=== PATIENT | female | born 1970 | race American Indian/Alaskan Native ===

== ENCOUNTER 2018-11-25 13:55 | Inpatient (IN) | payer MEDICAID ==
[2018-11-25 13:55] VITALS: BMI 21.7
[2018-11-25 14:52] LABS: BASO # 0.1 K/uL (0.0-0.2); BASO % 1.2 % (0.0-2.0); EOS % 0.4 % (0.0-4.0); LYMPH # 1.7 K/uL (1.0-4.3); LYMPH % 19.1 % (20.0-40.0); MEAN CELL VOLUME 77.2 fL (81.0-99.0); MEAN CORPUSCULAR HEMOGLOBIN 24.1 pg (27.0-31.0); MEAN CORPUSCULAR HGB CONC 31.3 g/dL (33.0-37.0); MEAN PLATELET VOLUME 9.1 fL (7.2-11.7); MONO # 0.6 K/uL (0.0-0.8); MONO % 6.4 % (0.0-10.0); NEUT # 6.4 K/uL (1.8-7.0); NEUT % 72.9 % (50.0-75.0); RBC 4.96 Mil/uL (3.80-5.20); RED CELL DISTRIBUTION WIDTH 17.7 % (11.5-14.5); WHITE BLOOD COUNT 8.8 K/uL (4.8-10.8)
--- NOTE | 2018-11-25 15:01 | C.PDOC ---
History Of Present Illness 48 y/o female presents to the ER complaining of large ulcer to right lower leg which has been present for the past 3 weeks. Patient states that she has history of skin lesions over the past 2-3 years. Patient reports that the lesions start as nodules which develop into abscesses eventually becoming ulcers. She notes that she has been in subacute rehab and hospitalized for same complaint. She was also started on IV abx for same complaint. She notes that the current ulcer began as nodules developing to abscesses eventually forming ulcers. She was evaluated by in his office today and he referred her to the ER for admission. Denies having fever and chills. Time Seen by Provider: 11/25/18 14:02 Chief Complaint (Nursing): Lower Extremity Problem/Injury History Per: Patient History/Exam Limitations: no limitations Onset/Duration Of Symptoms: Days Current Symptoms Are (Timing): Still Present Severity: Moderate Past Medical History Reviewed: Historical Data, Nursing Documentation, Vital Signs Vital Signs: Last Vital Signs Temp 98.6 F 11/25/18 14:25 Pulse 84 11/25/18 14:25 Resp 18 11/25/18 14:25 BP 113/75 11/25/18 14:25 Pulse Ox 100 11/25/18 14:25 - Medical History PMH: Diabetes Denies: HTN (States she doesnt have HTN), Chronic Kidney Disease Other Surgeries: Hx of surgeries - [facility] Procedures DRAINAGE OF L LOW LEG SUBCU/FASCIA, OPEN APPROACH, DIAGN (07/16/17) DRAINAGE OF R LOW LEG SUBCU/FASCIA, OPEN APPROACH, DIAGN (07/16/17) EXCISION OF L LOW LEG SUBCU/FASCIA, OPEN APPROACH, DIAGN (07/16/17) EXCISION OF R LOW LEG SUBCU/FASCIA, OPEN APPROACH, DIAGN (07/16/17) INTRODUCTION OF SERUM/TOX/VACCINE INTO MUSCLE, PERC APPROACH (07/16/17) Family History: States: No Known Family Hx - Social History Hx Tobacco Use: No Hx Alcohol Use: No Hx Substance Use: No - Immunization History Hx Influenza Vaccination: No Hx Pneumococcal Vaccination: No Review Of Systems Except As Marked, All Systems Reviewed And Found Negative. Constitutional: Negative for: Fever, Chills Skin: Positive for: Other (right leg ulceration) Physical Exam - Physical Exam Appears: Non-toxic, No Acute Distress Skin: Warm, Dry, Other (right lower le-10 cm ulcerative lesion with raised edges and thick exudates bleeding, right anterior shoulder: 2 cm nodule) Head: Atraumatic, Normacephalic Eye(s): bilateral: Normal Inspection Nose: Normal Oral Mucosa: Moist Neck: Supple Chest: Symmetrical Cardiovascular: Rhythm Regular Respiratory: Normal Breath Sounds, No Rales, No Rhonchi Gastrointestinal/Abdominal: Normal Exam, Soft, No Tenderness, No Guarding, No Rebound Extremity: Normal ROM, Tenderness (right lower leg: tenderness over lesion) Neurological/Psych: Oriented x3, Normal Speech ED Course And Treatment - Laboratory Results Result Diagrams: 11/25/18 14:48 11/25/18 15:17 Lab Interpretation: No Acute Changes ECG: Interpreted By Me ECG Rhythm: Sinus Rhythm ECG Interpretation: Normal O2 Sat by Pulse Oximetry: 100 (RA) Pulse Ox Interpretation: Normal - Radiology CXR: Interpreted by Me CXR Interpretation: Yes: No Acute Disease Reevaluation Time: 15:44 Reassessment Condition: Unchanged - Physician Consult Information Outcome Of Conversation: Patient was seen in ED by podiatry in consult. Discussed with Dr Horn. Medical Decision Making Medical Decision Making: Plan: --Labs --Blood Culture Disposition - Disposition Disposition: HOSPITALIZED Disposition Time: 15:45 Condition: STABLE - POA Present On Arrival: None - Clinical Impression Clinical Impression: Diabetes mellitus type 2 in nonobese, Abscess of right lower extremity excluding foot - Scribe Statement The provider has reviewed the documentation as recorded by the Yves Novak Provider Attestation: All medical record entries made by the Yves were at my direction and personally dictated by me. I have reviewed the chart and agree that the record accurately reflects my personal performance of the history, physical exam, medical decision making, and the department course for this patient. I have also personally directed, reviewed, and agree with the discharge instructions and disposition.
--- NOTE | 2018-11-25 15:18 | CP.PCM.CON ---
History of Present Illness - History of Present Illness History of Present Illness: Podiatry Consult Note - Dr. Orta 48 year old female patient PMHx DM seen in ED for right leg wound. Patient states she first developed the wound 3 weeks ago - relates that it first started out as a blister/abscess, ruptures, and develops into an extremely painful, draining, nonhealing wound. Patient states she has a history of developing similar wounds with the same progression of abscess, rupture, to becoming a painful non-healing wound. Of note, patient was admitted at [facility] July 2017 for a similar reason. Patient states she has been using Santyl from July for self care however wound continued to worsen which led to ED presentation. At present, patient reports 10/10 pain on VAS scale. Denies n/v/f/d/c/sob/reza/cp. No other complaints. Review of Systems - Review of Systems All systems: reviewed and no additional remarkable complaints except (as per HPI) Past Patient History - Infectious Disease Hx of Infectious Diseases: None - Past Medical History & Family History Past Medical History?: Yes - Past Social History Smoking Status: Never Smoked - CARDIAC Hx Hypertension: No (States she doesnt have HTN) - PULMONARY Hx Respiratory Disorders: No - NEUROLOGICAL Hx Neurological Disorder: No - HEENT Hx HEENT Problems: Yes Other/Comment: Eye surgery [place] - RENAL Hx Chronic Kidney Disease: No - ENDOCRINE/METABOLIC Hx Endocrine Disorders: Yes Hx Diabetes Mellitus Type 2: Yes - HEMATOLOGICAL/ONCOLOGICAL Hx Blood Disorders: No - INTEGUMENTARY Hx Dermatological Problems: Yes Other/Comment: Chronic wounds to upper and lower extremities - MUSCULOSKELETAL/RHEUMATOLOGICAL Hx Musculoskeletal Disorders: No Hx Falls: No - GASTROINTESTINAL Hx Gastrointestinal Disorders: No - GENITOURINARY/GYNECOLOGICAL Hx Genitourinary Disorders: No - PSYCHIATRIC Hx Substance Use: No - SURGICAL HISTORY Hx Surgeries: Yes Other/Comment: Eye surgery [place] - ANESTHESIA Hx Anesthesia: Yes Hx Anesthesia Reactions: No Hx Malignant Hyperthermia: No Meds Allergies/Adverse Reactions: Allergies Allergy/AdvReac Type Severity Reaction Status Date / Time No Known Allergies Allergy Verified 07/16/17 14:18 Physical Exam - Constitutional Appears: Non-toxic, No Acute Distress - Extremities Exam Additional comments: RLE focused VASC: DP and PT pulses weakly palpable 1/4. CFT <3 seconds to all digits. Temperature gradient warm to warm b/l. No increase in warmth noted periwound. NEURO: Gross sensation intact. DERM: Wound measuring approximately 7 x 15 x 0.1 cm noted to right lower leg just proximal to ankle joint encompassing 75% of leg circumference. Wound is 90% granular 10% fibrotic with rolled edges periwound; serosanguinous drainage present; no purulence; no fluctuance; no malodor. ORTHO: Severe pain on palpation to right leg wound. - Neurological Exam Neurological exam: Alert, Oriented x3 - Psychiatric Exam Psychiatric exam: Normal Affect, Normal Mood Results - Vital Signs Recent Vital Signs: Last Vital Signs Temp 98.6 F 11/25/18 14:25 Pulse 84 11/25/18 14:25 Resp 18 11/25/18 14:25 BP 113/75 11/25/18 14:25 Pulse Ox 100 11/25/18 15:08 - Labs Result Diagrams: 11/25/18 14:48 11/25/18 15:17 Labs: Laboratory Results - last 24 hr 11/25/18 11/25/18 14:18 14:48 WBC 8.8 RBC 4.96 Hgb 12.0 Hct 38.3 MCV 77.2 L MCH 24.1 L MCHC 31.3 L RDW 17.7 H Plt Count 285 MPV 9.1 Neut % (Auto) 72.9 Lymph % (Auto) 19.1 L [place] % (Auto) 6.4 Eos % (Auto) 0.4 Baso % (Auto) 1.2 Neut # (Auto) 6.4 Lymph # (Auto) 1.7 [place] # (Auto) 0.6 Eos # (Auto) 0.0 Baso # (Auto) 0.1 POC Glucose (mg/dL) 184 H Assessment & Plan - Assessment and Plan (Free Text) Assessment: 48 year old female PMHx DM with right leg wound Plan: Patient seen and evaluated at bedside Discussed with attending, Dr. Orta Afebrile, WBC WNL 8.8 R leg wound culture obtained ID consulted -Vancomyvin IV, Zosyn IV started Local wound care provided: telfa, DSD WBAT bilateral LE Continue pain mgmt Podiatry will continue to follow
[2018-11-25 15:36] LABS: ALB/GLOB RATIO 1.2 (1.0-2.1); ALBUMIN 4.4 g/dL (3.5-5.0); ALT/SGPT 14 U/L (9-52); AST/SGOT 24 U/L (14-36); BLOOD UREA NITROGEN 20 mg/dL (7-17); CALCIUM 9.9 mg/dl (8.6-10.4); GFR NON-AFRICAN AMERICAN > 60
[2018-11-25] MEDS ORDERED: Vancomycin 1 GM 1 GM/250 ML BAG IV STA (15:42)
[2018-11-25] MEDS ORDERED: Piperacillin/Tazobact 3.375 gm 100 ML IV STA (15:43)
[2018-11-25] MEDS ORDERED: Piperacillin/Tazobact 3.375 gm 100 ML IVPB ONE (16:03)
--- NOTE | 2018-11-25 16:41 | RAD ---
HISTORY: skin lesions/admission COMPARISON: None available TECHNIQUE: Chest PA and lateral FINDINGS: LUNGS: No focal consolidation. Please note that chest x-ray has limited sensitivity for the detection of pulmonary masses. PLEURA: No significant pleural effusion identified. No definite pneumothorax . CARDIOVASCULAR: Heart size appears within normal limits. Atherosclerotic calcification of the aortic knob. OSSEOUS STRUCTURES: No acute osseous abnormality identified. VISUALIZED UPPER ABDOMEN: Unremarkable. OTHER FINDINGS: None. IMPRESSION: No focal consolidation.
[2018-11-25] MEDS ORDERED: Vancomycin 1 GM 1 GM/250 ML BAG IVPB ONE (17:02)
--- NOTE | 2018-11-25 20:15 | CP.PCM.PN ---
Subjective - Date & Time of Evaluation Date of Evaluation: 11/25/18 Time of Evaluation: 20:00 - Subjective Subjective: H&P dictated #[id number] Objective - Vital Signs/Intake and Output Vital Signs (last 24 hours): Temp Pulse Resp BP Pulse Ox 98 F 80 20 115/75 98 11/25/18 17:46 11/25/18 17:46 11/25/18 17:46 11/25/18 17:46 11/25/18 17:46 - Medications Medications: Current Medications Ibuprofen (Motrin Tab) 400 mg PO Q8 PRN PRN Reason: Pain, moderate (4-7) Insulin Human Regular (Novolin R) 0 unit SC ACHS FATOUMATA; Protocol Metformin HCl (Glucophage) 1,000 mg PO BID FATOUMATA Pantoprazole Sodium (Protonix Ec Tab) 40 mg PO DAILY FATOUMATA Prednisolone Acetate (Pred Forte 1% Opht Susp) 1 ml OS TID FATOUMATA Sitagliptin Phosphate (Januvia) 100 mg PO DAILY FATOUMATA - Labs Labs: 11/25/18 14:48 11/25/18 15:17
--- NOTE | 2018-11-25 21:01 | CP.PCM.CON ---
History of Present Illness - History of Present Illness History of Present Illness: 48 year old female patient PMHx DM and multiple admissions for skin infections/ wounds is admitted for nonhealing right leg wound. Patient states she first developed the wound 3 weeks ago which first started out as a blister/abscess, ruptures, and develops into an extremely painful, draining, nonhealing wound. Patient states she has been using Santyl from July for self care however wound continued to worsen which led to ED presentation. Becaause of possible infectious etiology, she was referred for ID evaluation of same Patientm has Hx + Quantiferon gold as well as + OTILIA in the past deniesm fever / chills bites, pets or foreign travel Differential includes infectious ( bacteria, AFB, Fungus etc) and non infectious etiologies including malignancies-- will need Bx as well as cultures may have pyoderma must also r/o connective tissue diseaseds Review of Systems - Review of Systems All systems: reviewed and no additional remarkable complaints except Past Patient History - Infectious Disease Hx of Infectious Diseases: None - Past Medical History & Family History Past Medical History?: Yes - Past Social History Smoking Status: Never Smoked - CARDIAC Hx Hypertension: No (States she doesnt have HTN) - PULMONARY Hx Respiratory Disorders: No - NEUROLOGICAL Hx Neurological Disorder: No - HEENT Hx HEENT Problems: Yes Other/Comment: Eye surgery post [place] - RENAL Hx Chronic Kidney Disease: No - ENDOCRINE/METABOLIC Hx Endocrine Disorders: Yes Hx Diabetes Mellitus Type 2: Yes - HEMATOLOGICAL/ONCOLOGICAL Hx Blood Disorders: No - INTEGUMENTARY Hx Dermatological Problems: Yes Other/Comment: Chronic wounds to upper and lower extremities - MUSCULOSKELETAL/RHEUMATOLOGICAL Hx Musculoskeletal Disorders: No Hx Falls: No - GASTROINTESTINAL Hx Gastrointestinal Disorders: No - GENITOURINARY/GYNECOLOGICAL Hx Genitourinary Disorders: No - PSYCHIATRIC Hx Substance Use: No - SURGICAL HISTORY Hx Surgeries: Yes Other/Comment: Eye surgery [place] - ANESTHESIA Hx Anesthesia: Yes Hx Anesthesia Reactions: No Hx Malignant Hyperthermia: No Meds Allergies/Adverse Reactions: Allergies Allergy/AdvReac Type Severity Reaction Status Date / Time No Known Allergies Allergy Verified 07/16/17 14:18 - Medications Medications: Current Medications Vancomycin HCl 1 gm/ Sodium (Chloride) 250 mls @ 166.7 mls/hr IVPB Q12 FATOUMATA; Protocol Piperacillin Sod/Tazobactam Sod (Zosyn 3.375 In Ns 100ml) 100 mls @ 200 mls/hr IVPB Q8 FATOUMATA; Protocol Ibuprofen (Motrin Tab) 400 mg PO Q8 PRN PRN Reason: Pain, moderate (4-7) Influenza Virus Vaccine (Flucelvax Quad 6662-3237 Syr) 60 mcg IM .ONCE ONE Stop: 11/28/18 10:01 Insulin Human Regular (Novolin R) 0 unit SC ACHS FATOUMATA; Protocol Metformin HCl (Glucophage) 1,000 mg PO BID FATOUMATA Pantoprazole Sodium (Protonix Ec Tab) 40 mg PO DAILY FATOUMATA Pneumococcal Polyvalent Vaccine (Pneumovax 23 Vaccine) 0.5 ml IM .ONCE ONE Stop: 11/28/18 10:01 Prednisolone Acetate (Pred Forte 1% Opht Susp) 1 ml OS TID FATOUMATA Sitagliptin Phosphate (Januvia) 100 mg PO DAILY FATOUMATA Physical Exam - Constitutional Appears: Chronically Ill - Head Exam Head Exam: ATRAUMATIC, NORMOCEPHALIC - Eye Exam Eye Exam: absent: Scleral icterus - ENT Exam ENT Exam: Mucous Membranes Dry, Normal External Ear Exam - Neck Exam Neck exam: Negative for: Lymphadenopathy - Respiratory Exam Respiratory Exam: Decreased Breath Sounds - Cardiovascular Exam Cardiovascular Exam: REGULAR RHYTHM, +S1, +S2 - GI/Abdominal Exam GI & Abdominal Exam: Diminished Bowel Sounds - Rectal Exam Rectal Exam: Deferred - Exam Exam: NORMAL INSPECTION - Extremities Exam Extremities exam: Positive for: tenderness, pedal pulses present. Negative for: calf tenderness, pedal edema Additional comments: wound RLE + - Back Exam Back exam: absent: CVA tenderness (L), CVA tenderness (R) - Neurological Exam Neurological exam: Alert, CN II-XII Intact, Oriented x3, Reflexes Normal - Psychiatric Exam Psychiatric exam: Normal Mood Results - Vital Signs Recent Vital Signs: Last Vital Signs Temp 98 F 11/25/18 17:46 Pulse 80 11/25/18 17:46 Resp 20 11/25/18 17:46 BP 115/75 11/25/18 17:46 Pulse Ox 98 11/25/18 17:46 - Labs Result Diagrams: 11/26/18 07:08 11/26/18 07:08 Labs: Laboratory Results - last 24 hr 11/25/18 11/25/18 11/25/18 14:18 14:48 15:17 WBC 8.8 RBC 4.96 Hgb 12.0 Hct 38.3 MCV 77.2 L MCH 24.1 L MCHC 31.3 L RDW 17.7 H Plt Count 285 MPV 9.1 Neut % (Auto) 72.9 Lymph % (Auto) 19.1 L [place] % (Auto) 6.4 Eos % (Auto) 0.4 Baso % (Auto) 1.2 Neut # (Auto) 6.4 Lymph # (Auto) 1.7 [place] # (Auto) 0.6 Eos # (Auto) 0.0 Baso # (Auto) 0.1 Sodium 137 Potassium 3.8 Chloride 105 Carbon Dioxide 22 Anion Gap 12 BUN 20 H Creatinine 0.6 L Est GFR ( Amer) > 60 Est GFR (Non-Af Amer) > 60 POC Glucose (mg/dL) 184 H Random Glucose 173 H Calcium 9.9 Total Bilirubin 0.5 AST 24 ALT 14 Alkaline Phosphatase 81 Total Protein 8.0 Albumin 4.4 Globulin 3.6 Albumin/Globulin Ratio 1.2 11/25/18 20:50 WBC RBC Hgb Hct MCV MCH MCHC RDW Plt Count MPV Neut % (Auto) Lymph % (Auto) [place] % (Auto) Eos % (Auto) Baso % (Auto) Neut # (Auto) Lymph # (Auto) [place] # (Auto) Eos # (Auto) Baso # (Auto) Sodium Potassium Chloride Carbon Dioxide Anion Gap BUN Creatinine Est GFR ( Amer) Est GFR (Non-Af Amer) POC Glucose (mg/dL) 318 H Random Glucose Calcium Total Bilirubin AST ALT Alkaline Phosphatase Total Protein Albumin Globulin Albumin/Globulin Ratio Assessment & Plan (1) Abscess of right lower extremity excluding foot Status: Acute (2) Diabetes mellitus type 2 in nonobese Status: Acute - Assessment and Plan (Free Text) Assessment: Becaause of possible infectious etiology, she was referred for ID evaluation of same Patientm has Hx + Quantiferon gold as well as + OTILIA in the past deniesm fever / chills bites, pets or foreign travel Differential includes infectious ( bacteria, AFB, Fungus etc) and non infectious etiologies including malignancies-- will need Bx as well as cultures may have pyoderma must also r/o connective tissue diseaseds
[2018-11-25] MEDS: (Novolin R) Insulin Human Regular 100 units/ml vial SC SCH (21:41)
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
[2018-11-26 07:03] LABS: SQUAMOUS EPITHIAL < 1 /hpf (0-5); URINE BILIRUBIN NEGATIVE (NEGATIVE); URINE BLOOD NEGATIVE (NEGATIVE); URINE CLARITY Hazy (Clear); URINE COLOR Yellow (YELLOW); URINE GLUCOSE (UA) 3+ mg/dL (Normal); URINE LEUKOCYTE ESTERASE NEG Leu/uL (Negative); URINE PROTEIN 1+ mg/dL (NEGATIVE); URINE UROBILINOGEN NORMAL mg/dL (0.2-1.0)
[2018-11-26 07:22] LABS: BASO % 0.6 % (0.0-2.0); EOS # 0.1 K/uL (0.0-0.7); EOS % 0.8 % (0.0-4.0); HEMOGLOBIN 10.5 g/dL (11.0-16.0); LYMPH # 1.2 K/uL (1.0-4.3); LYMPH % 15.1 % (20.0-40.0); MEAN CELL VOLUME 77.2 fL (81.0-99.0); MEAN CORPUSCULAR HEMOGLOBIN 24.1 pg (27.0-31.0); MEAN CORPUSCULAR HGB CONC 31.2 g/dL (33.0-37.0); MEAN PLATELET VOLUME 9.5 fL (7.2-11.7); MONO # 0.7 K/uL (0.0-0.8); MONO % 8.6 % (0.0-10.0); NEUT # 5.8 K/uL (1.8-7.0); NEUT % 74.9 % (50.0-75.0); NRBC % 0.1 % (0.0-2.0); RBC 4.36 Mil/uL (3.80-5.20); RED CELL DISTRIBUTION WIDTH 18.1 % (11.5-14.5); WHITE BLOOD COUNT 7.7 K/uL (4.8-10.8)
[2018-11-26 07:46] LABS: ALB/GLOB RATIO 1.3 (1.0-2.1); ALBUMIN 3.9 g/dL (3.5-5.0); ALT/SGPT 10 U/L (9-52); AST/SGOT 21 U/L (14-36); BLOOD UREA NITROGEN 20 mg/dL (7-17); CALCIUM 9.2 mg/dl (8.6-10.4); GFR NON-AFRICAN AMERICAN > 60; HDL CHOLESTEROL 40 mg/dL (30-70)
[2018-11-26 08:02] LABS: LDL CHOLESTEROL 91 mg/dL (0-129)
[2018-11-26] MEDS: (Novolin R) Insulin Human Regular 100 units/ml vial SC SCH ×4 (08:33→21:43)
[2018-11-26 08:58] LABS: HEPATITIS B SURFACE AG Negative (NEGATIVE)
[2018-11-26 09:04] LABS: HEPATITIS A IGM NEGATIVE (NEGATIVE); HEPATITIS B CORE AB NEGATIVE (NEGATIVE)
[2018-11-26 09:15] LABS: HEPATITIS C ANTIBODY NEGATIVE (NEGATIVE)
--- NOTE | 2018-11-26 09:27 | CP.PCM.PN ---
Subjective - Date & Time of Evaluation Date of Evaluation: 11/26/18 Time of Evaluation: 09:26 - Subjective Subjective: Progress note dictated #[id number] Objective - Vital Signs/Intake and Output Vital Signs (last 24 hours): Temp Pulse Resp BP Pulse Ox 98 F 97 H 20 118/75 96 11/26/18 08:00 11/26/18 08:00 11/26/18 08:00 11/26/18 08:00 11/26/18 08:00 Intake and Output: 11/26/18 11/26/18 06:59 18:59 Intake Total 150 Balance 150 - Medications Medications: Current Medications Vancomycin HCl 1 gm/ Sodium (Chloride) 250 mls @ 166.7 mls/hr IVPB Q12 FATOUMATA; Protocol Piperacillin Sod/Tazobactam Sod (Zosyn 3.375 In Ns 100ml) 100 mls @ 200 mls/hr IVPB Q8 FATOUMATA; Protocol Ibuprofen (Motrin Tab) 400 mg PO Q8 PRN PRN Reason: Pain, moderate (4-7) Last Admin: 11/26/18 05:15 Dose: 400 mg Influenza Virus Vaccine (Flucelvax Quad [id number] Syr) 60 mcg IM .ONCE ONE Stop: 11/28/18 10:01 Insulin Human Regular (Novolin R) 0 unit SC ACHS FATOUMATA; Protocol Last Admin: 11/26/18 08:33 Dose: Not Given Metformin HCl (Glucophage) 1,000 mg PO BID FATOUMATA Pantoprazole Sodium (Protonix Ec Tab) 40 mg PO DAILY FATOUMATA Pneumococcal Polyvalent Vaccine (Pneumovax 23 Vaccine) 0.5 ml IM .ONCE ONE Stop: 11/28/18 10:01 Prednisolone Acetate (Pred Forte 1% Opht Susp) 1 ml OS TID FATOUMATA Sitagliptin Phosphate (Januvia) 100 mg PO DAILY FATOUMATA - Labs Labs: 11/26/18 07:08 11/26/18 07:08
[2018-11-26] MEDS: JARDIANCE 10MG PO SCH (10:00)
[2018-11-26] MEDS: Pantoprazole 40 mg EC Tab PO SCH (10:11)
[2018-11-26] MEDS: PrednisoLONE 1% Opht Susp(5 ml) OS SCH ×3 (10:12→17:46)
--- NOTE | 2018-11-26 15:43 | PN ---
DATE: 11/26/2018 SUBJECTIVE: The patient is seen and examined at bedside. The patient is complaining of right leg pain at the ulcer site, claiming that she is not able to walk to the bathroom secondary to pain. Denies any other new complaints. All other systems reviewed and were found to be negative. PHYSICAL EXAMINATION: GENERAL: Middle-aged, thin-built female, lying in bed, in no acute distress. VITAL SIGNS: Blood pressure 118/75, pulse 97, respiration 20, temperature 98 degrees Fahrenheit, and O2 sat 96% on room air. HEENT: Pupils equal, round, reactive to light and accommodation. Extraocular muscles intact. No icterus. No pallor. No oral thrush. No pharyngeal congestion. NECK: Supple. No JVD. LUNGS: Bilateral vesicular breath sounds. No wheezing. No rhonchi. CARDIOVASCULAR SYSTEM: S1 and S2 present, regular. ABDOMEN: Soft and nontender. Bowel sounds present. No guarding. No rigidity. No rebound tenderness noted. CENTRAL NERVOUS SYSTEM: Alert, awake, oriented x3. No focal deficits noted. EXTREMITIES: Right foot with dressing in place, there is no oozing noted at the ulcer site. Palpable peripheral pulses. MEDICATIONS: Include heparin 5000 units subcutaneous every 12 hours, Motrin as needed, metformin 1000 mg oral twice daily, Protonix 40 mg daily, Zosyn 3.375 mg IV every 8 hours, prednisolone eye drops, Januvia 100 mg daily, vancomycin 1 g IV every 12 hours. LABORATORY DATA: Labs from this morning: WBC 7.7, hemoglobin 10.5, hematocrit 33.7, and platelets 221. Sodium 139, potassium 4, chloride 105, bicarb 26, BUN 20, creatinine 0.6, glucose 263, hemoglobin A1C 8.3, calcium 9.2, phosphorus 3.4, and magnesium 1.6. AST 21, ALT 10, alkaline phosphatase 69; total protein 7; albumin 3.9. UA specific gravity 1.037, protein 1+, glucose 3+. RPR pending. Hepatitis serology negative. HIV screening negative. Group A and B strep is negative. Leg wound culture pending. ASSESSMENT AND PLAN: A middle-aged, thin-built female with past medical history of rheumatoid arthritis, diabetes mellitus, history of multiple eye surgeries, recent procedure to the eyes for decreased vision, multiple admissions to the hospital for multiple ulcers, admitted with right lower extremity ulcer of unknown etiology. Infectious Disease consult appreciated. Podiatry appreciated. We will continue with vancomycin and Zosyn as recommended by ID. Diabetes is uncontrolled. We will request Endocrinology consult. Continue with metformin, Januvia and Jardiance. Will follow up with culture results. Continue with other medications from home. Yamil Horn MD
[2018-11-26] MEDS: Piperacillin/Tazobact 3.375 GM in Sodium Chloride 100 ML IVPB SCH (17:00)
[2018-11-26 17:29] LABS: RAPID PLASMA REAGIN NONREACTIVE (NONREACTIVE)
--- NOTE | 2018-11-26 18:15 | CARD ---
APPROVED REPORT Date of service: 11/25/2018 EKG Measurement Heart [id number] <Conclusion> Normal sinus rhythm Normal ECG
--- NOTE | 2018-11-26 19:30 | CP.PCM.PN ---
Subjective - Date & Time of Evaluation Date of Evaluation: 11/26/18 Time of Evaluation: 08:00 - Subjective Subjective: c/o pain nad IV rx renewed Objective - Vital Signs/Intake and Output Vital Signs (last 24 hours): Temp Pulse Resp BP Pulse Ox 98.1 F 81 20 107/67 99 11/26/18 16:05 11/26/18 16:05 11/26/18 16:05 11/26/18 16:05 11/26/18 16:05 - Medications Medications: Current Medications Glipizide (Glucotrol) 5 mg PO ACBD [facility] Last Admin: 11/26/18 16:30 Dose: 5 mg Heparin Sodium (Porcine) (Heparin) 5,000 units SC Q12 [facility] Last Admin: 11/26/18 10:11 Dose: Not Given Home Med (Empagliflozin [Jardiance]) 10 mg PO DAILY [facility] Vancomycin HCl 1 gm/ Sodium (Chloride) 250 mls @ 166.7 mls/hr IVPB Q12H [facility]; Protocol Last Admin: 11/26/18 16:00 Dose: 166.7 mls/hr Piperacillin Sod/Tazobactam (Sod 3.375 gm/ Sodium Chloride) 100 mls @ 200 mls/hr IVPB Q8H [facility]; Protocol Last Admin: 11/26/18 17:00 Dose: 200 mls/hr Ibuprofen (Motrin Tab) 400 mg PO Q8 PRN PRN Reason: Pain, moderate (4-7) Last Admin: 11/26/18 14:49 Dose: 400 mg Influenza Virus Vaccine (Flucelvax Quad 6792-8733 Syr) 60 mcg IM .ONCE ONE Stop: 11/28/18 10:01 Insulin Human Regular (Novolin R) 0 unit SC ACHS [facility]; Protocol Last Admin: 11/26/18 16:30 Dose: 1 units Metformin HCl (Glucophage) 1,000 mg PO BID [facility] Last Admin: 11/26/18 17:45 Dose: 1,000 mg Pantoprazole Sodium (Protonix Ec Tab) 40 mg PO DAILY [facility] Last Admin: 11/26/18 10:11 Dose: 40 mg Pneumococcal Polyvalent Vaccine (Pneumovax 23 Vaccine) 0.5 ml IM .ONCE ONE Stop: 11/28/18 10:01 Prednisolone Acetate (Pred Forte 1% Opht Susp) 1 ml OS TID [facility] Last Admin: 11/26/18 17:46 Dose: 1 applic Sitagliptin Phosphate (Januvia) 100 mg PO DAILY [facility] Last Admin: 11/26/18 10:11 Dose: 100 mg - Labs Labs: 11/26/18 07:08 11/26/18 07:08 - Constitutional Appears: Well - Head Exam Head Exam: ATRAUMATIC, NORMAL INSPECTION, NORMOCEPHALIC - Eye Exam Eye Exam: EOMI, Normal appearance, PERRL Pupil Exam: NORMAL ACCOMODATION, PERRL - ENT Exam ENT Exam: Mucous Membranes Moist, Normal Exam - Neck Exam Neck Exam: Full ROM, Normal Inspection. absent: Lymphadenopathy - Respiratory Exam Respiratory Exam: Clear to Ausculation Bilateral, NORMAL BREATHING PATTERN - Cardiovascular Exam Cardiovascular Exam: REGULAR RHYTHM, +S1, +S2. absent: Murmur - GI/Abdominal Exam GI & Abdominal Exam: Soft, Normal Bowel Sounds. absent: Tenderness - Rectal Exam Rectal Exam: NORMAL INSPECTION - Exam Exam: Circumcision, NORMAL INSPECTION External exam: NORMAL EXTERNAL EXAM Speculum exam: NORMAL SPECULUM EXAM Bimanual exam: NORMAL BIMANUAL EXAM - Extremities Exam Extremities Exam: Full ROM, Normal Capillary Refill. absent: Joint Swelling, Pedal Edema Additional comments: Wound measuring approximately 7 x 15 x 0.1 cm noted to right lower leg just proximal to ankle joint encompassing 75% of leg circumference. Wound is 90% gran ular 10% fibrotic with rolled edges periwound; serosanguinous drainage present; no purulence; no fluctuance; no malodor. ORTHO: Severe pain on palpation to right leg wound. - Back Exam Back Exam: NORMAL INSPECTION - Neurological Exam Neurological Exam: Alert, Awake, CN II-XII Intact, Normal Gait, Oriented x3 - Psychiatric Exam Psychiatric exam: Normal Affect, Normal Mood - Skin Skin Exam: Dry, Intact, Normal Color, Warm Assessment and Plan (1) Abscess of right lower extremity excluding foot Status: Acute (2) Diabetes mellitus type 2 in nonobese Status: Acute - Assessment and Plan (Free Text) Assessment: await cultures/ serologies consider Bx to r/o TB, Fungus, malignancy cont empiric IV antibiotics
--- NOTE | 2018-11-26 22:55 | CP.PCM.PN ---
Subjective - Date & Time of Evaluation Date of Evaluation: 11/26/18 Time of Evaluation: 15:00 - Subjective Subjective: Podiatry Progress Note - Dr. Orta 48F seen and evaluated for right leg wound. No acute events overnight. Patient anxious on rounds; reports constant pain around wound and apprehensive for dressing change. Denies n/v/f/d/c/sob/reza/cp. Objective - Vital Signs/Intake and Output Vital Signs (last 24 hours): Temp Pulse Resp BP Pulse Ox 98.1 F 81 20 107/67 99 11/26/18 16:05 11/26/18 16:05 11/26/18 16:05 11/26/18 16:05 11/26/18 16:05 - Medications Medications: Current Medications Glipizide (Glucotrol) 5 mg PO ACBD [facility] Last Admin: 11/26/18 16:30 Dose: 5 mg Heparin Sodium (Porcine) (Heparin) 5,000 units SC Q12 [facility] Last Admin: 11/26/18 21:43 Dose: 5,000 units Home Med (Empagliflozin [Jardiance]) 10 mg PO DAILY [facility] Vancomycin HCl 1 gm/ Sodium (Chloride) 250 mls @ 166.7 mls/hr IVPB Q12H [facility]; P rotocol Last Admin: 11/26/18 16:00 Dose: 166.7 mls/hr Piperacillin Sod/Tazobactam (Sod 3.375 gm/ Sodium Chloride) 100 mls @ 200 mls/hr IVPB Q8H [facility]; Protocol Last Admin: 11/26/18 17:00 Dose: 200 mls/hr Ibuprofen (Motrin Tab) 400 mg PO Q8 PRN PRN Reason: Pain, moderate (4-7) Last Admin: 11/26/18 14:49 Dose: 400 mg Influenza Virus Vaccine (Flucelvax Quad [id number] Syr) 60 mcg IM .ONCE ONE Stop: 11/28/18 10:01 Insulin Human Regular (Novolin R) 0 unit SC ACHS [facility]; Protocol Last Admin: 11/26/18 21:43 Dose: Not Given Metformin HCl (Glucophage) 1,000 mg PO BID [facility] Last Admin: 11/26/18 17:45 Dose: 1,000 mg Pantoprazole Sodium (Protonix Ec Tab) 40 mg PO DAILY [facility] Last Admin: 11/26/18 10:11 Dose: 40 mg Pneumococcal Polyvalent Vaccine (Pneumovax 23 Vaccine) 0.5 ml IM .ONCE ONE Stop: 11/28/18 10:01 Prednisolone Acetate (Pred Forte 1% Opht Susp) 1 ml OS TID [facility] Last Admin: 11/26/18 17:46 Dose: 1 applic Sitagliptin Phosphate (Januvia) 100 mg PO DAILY [facility] Last Admin: 11/26/18 10:11 Dose: 100 mg - Labs Labs: 11/26/18 07:08 11/26/18 07:08 - Constitutional Appears: Non-toxic, No Acute Distress - Extremities Exam Additional comments: RLE focused VASC: DP and PT pulses weakly palpable 1/4. CFT <3 seconds to all digits. Temperature gradient warm to warm b/l. No increase in warmth noted periwound. NEURO: Gross sensation intact. DERM: Wound measuring approximately 7 x 15 x 0.1 cm noted to right lower leg just proximal to ankle joint encompassing 75% of leg circumference. Wound is 90% granular 10% fibrotic with rolled edges periwound; serosanguinous drainage present; no purulence; no fluctuance; no malodor. ORTHO: Severe pain on palpation to right leg wound. - Neurological Exam Neurological Exam: Alert, Awake, Oriented x3 - Psychiatric Exam Psychiatric exam: Normal Affect, Normal Mood Assessment and Plan - Assessment and Plan (Free Text) Assessment: 48 year old female PMHx DM with right leg wound -Infectious vs. malignancy, possible pyoderma Plan: Patient seen and evaluated at bedside Discussed with attending, Dr. Orta Afebrile, WBC WNL 7.7 R leg wound culture: (prelim) gram negative rods ID recs appreciated Continue abx Continue local wound care: xeroform, DSD WBAT bilateral LE Continue pain mgmt Podiatry will continue to follow
--- NOTE | 2018-11-27 00:48 | CON ---
DATE: 11/26/2018 ENDOCRINOLOGY CONSULTATION LOCATION: Room 371. HISTORY OF PRESENT ILLNESS: This is a 48-year-old female with known history of type 2 diabetes, on oral hypoglycemic combination therapy, presenting here with a nonhealing right leg ulcer and underlying abscess and smell, being referred for diabetic evaluation and management. PAST MEDICAL HISTORY: As mentioned above. History of type 2 diabetes on a combination of Jardiance taken as 10 mg daily with metformin at 1 g b.i.d. and Actos 30 mg daily and Januvia at 100 mg once daily. History of diabetic polyneuropathy is noted. FAMILY HISTORY: Positive for diabetes, hypertension. SOCIAL HISTORY: The patient has supportive family. No known substance use. REVIEW OF SYSTEMS: As mentioned above. Admits to generalized body weakness with easy fatigability and tiredness and suboptimal energy level. Also admits to episodic bouts of dizziness and lightheadedness. No chest pains or palpitations or PNDs. Her oral intake has been variable with occasional dyspepsia and also admits to habitual constipation, and occasional nocturia as noted. PHYSICAL EXAMINATION: GENERAL: Average-built female, in no apparent distress. VITAL SIGNS: Blood pressure 140/80, pulse of 70 beats per minute and regular, temperature 98, respirations 20. Height is 5 feet 6 inches, weight is 125 pounds. HEENT: Head: Normocephalic. Eyes: Anicteric with pink conjunctivae. Funduscopy is not possible at this time. Ears, nose, and throat otherwise normal. NECK: Supple. Thyroid gland is normal sized. No carotid bruits or cervical adenopathy. CARDIOPULMONARY: Some adynamic precordium. S1, S2, rapid and regular. LUNGS: Clear to auscultation. ABDOMEN: Flat, soft with positive bowel sounds. EXTREMITIES: No peripheral edema. There is a nonhealing ulcer in the distal right leg with throbbing erythema and edema. Pulses are +2 bilaterally. LABORATORY DATA: Her A1c is 8.3%. Her chemistry shows BUN of 20, sodium 139, potassium 4, chloride 105, CO2 of 26, glucose 199, and creatinine 0.6. ASSESSMENT: This is a 48-year-old female with uncontrolled and decompensated type 2 insulin-requiring diabetes with marked hyperglycemic accelerations, presenting here with a nonhealing neuropathic ulceration in the right leg with underlying abscess of cellulitis as noted thereof. PLAN OF MANAGEMENT: We will modify her current sliding scale coverage and switch over to a low-dose correction scale to obviate hypoglycemia. We will also add basal insulin with Lantus to be given as 14 units subcutaneous at bedtime daily to start tonight. We will continue the oral hypoglycemic therapy with glipizide given as 5 mg b.i.d. and metformin of 1 g b.i.d. with Januvia at 100 mg once daily. We will obtain serial chemistries and supplement accordingly as needed. We will follow and advise accordingly. Gwen Alford MD
[2018-11-27] MEDS: Piperacillin/Tazobact 3.375 GM in Sodium Chloride 100 ML IVPB SCH ×3 (01:58→17:20)
[2018-11-27] MEDS ORDERED: Piperacillin/Tazobact 3.375 gm 100 ML IVPB SCH (06:00)
--- NOTE | 2018-11-27 06:56 | CP.PCM.PN ---
Subjective - Date & Time of Evaluation Date of Evaluation: 11/27/18 Time of Evaluation: 06:48 - Subjective Subjective: Flako Garcia D.O. PGY-3, Internal Medicine Resident, Endocrinology Progress Note 48 year old female with a known PMH of DM2, HTN, multiple ulcers, RA, who presented for complaints of non-healing right leg ulcer. Endocrinology consultation was requested due to uncontrolled DM. Patient was seen and examined at bedside. Found resting comfortably. No acute complaints at this time other than worried about her leg ulcer. Objective - Vital Signs/Intake and Output Vital Signs (last 24 hours): Temp Pulse Resp BP Pulse Ox 97.8 F 77 20 107/68 98 11/27/18 00:00 11/27/18 00:00 11/27/18 00:00 11/27/18 00:00 11/27/18 00:00 Intake and Output: 11/26/18 11/27/18 18:59 06:59 Intake Total 550 Balance 550 - Medications Medications: Current Medications Glipizide (Glucotrol) 5 mg PO ACBD [facility] Last Admin: 11/26/18 16:30 Dose: 5 mg Heparin Sodium (Porcine) (Heparin) 5,000 units SC Q12 [facility] Last Admin: 11/26/18 21:43 Dose: 5,000 units Home Med (Empagliflozin [Jardiance]) 10 mg PO DAILY [facility] Vancomycin HCl 1 gm/ Sodium (Chloride) 250 mls @ 166.7 mls/hr IVPB Q12H [facility]; Protocol Last Admin: 11/27/18 03:59 Dose: 166.7 mls/hr Piperacillin Sod/Tazobactam (Sod 3.375 gm/ Sodium Chloride) 100 mls @ 200 mls/hr IVPB Q8H [facility]; Protocol Last Admin: 11/27/18 01:58 Dose: 200 mls/hr Ibuprofen (Motrin Tab) 400 mg PO Q8 PRN PRN Reason: Pain, moderate (4-7) Last Admin: 11/27/18 02:48 Dose: 400 mg Influenza Virus Vaccine (Flucelvax Quad 3349-1472 Syr) 60 mcg IM .ONCE ONE Stop: 11/28/18 10:01 Insulin Human Regular (Novolin R) 0 unit SC ACHS [facility]; Protocol Last Admin: 11/26/18 21:43 Dose: Not Given Metformin HCl (Glucophage) 1,000 mg PO BID [facility] Last Admin: 11/26/18 17:45 Dose: 1,000 mg Pantoprazole Sodium (Protonix Ec Tab) 40 mg PO DAILY [facility] Last Admin: 11/26/18 10:11 Dose: 40 mg Pneumococcal Polyvalent Vaccine (Pneumovax 23 Vaccine) 0.5 ml IM .ONCE ONE Stop: 11/28/18 10:01 Prednisolone Acetate (Pred Forte 1% Opht Susp) 1 ml OS TID [facility] Last Admin: 11/26/18 17:46 Dose: 1 applic Sitagliptin Phosphate (Januvia) 100 mg PO DAILY [facility] Last Admin: 11/26/18 10:11 Dose: 100 mg - Labs Labs: 11/26/18 07:08 11/26/18 07:08 - Constitutional Appears: Non-toxic, No Acute Distress - Head Exam Head Exam: ATRAUMATIC, NORMOCEPHALIC - Eye Exam Eye Exam: EOMI. absent: Scleral icterus - ENT Exam ENT Exam: Mucous Membranes Moist, Normal Oropharynx - Neck Exam Neck Exam: Normal Inspection - Respiratory Exam Respiratory Exam: absent: Rhonchi, Wheezes - Cardiovascular Exam Cardiovascular Exam: +S1, +S2 - GI/Abdominal Exam GI & Abdominal Exam: Soft - Extremities Exam Additional comments: leg ulcer - Neurological Exam Neurological Exam: Alert, Awake - Psychiatric Exam Psychiatric exam: Normal Affect, Normal Mood - Skin Skin Exam: Dry, Warm Assessment and Plan - Assessment and Plan (Free Text) Assessment: 48 year old female with a known PMH of DM2, HTN, multiple ulcers, RA, who p resented for complaints of non-healing right leg ulcer. Endocrinology consultation was requested due to uncontrolled DM. Plan: 1. Uncontrolled DM type 2 with neuropathy Blood sugars last 24 hrs [id number] HgbA1c is 8.3% (improved from 8.9 back in 2017) Pending rechecks today Continue accuchecks To start lantus 12 units SC HS Continue home jardiance 10mg PO QD, januvia 100mg PO QD, ,metformin 1g PO BID Started glipizide 5mg PO ACBD 2. Nonhealing neuropathic ulceration of right leg Podiatry and ID following Patient was seen and examined and case to be discussed with attending physician Dr. Alford.
[2018-11-27] MEDS: (Novolin R) Insulin Human Regular 100 units/ml vial SC SCH ×4 (07:34→22:00)
--- NOTE | 2018-11-27 09:33 | CP.PCM.PN ---
Subjective - Date & Time of Evaluation Date of Evaluation: 11/27/18 Time of Evaluation: 09:33 - Subjective Subjective: Progress note dictated # [id number] Objective - Vital Signs/Intake and Output Vital Signs (last 24 hours): Temp Pulse Resp BP Pulse Ox 98 F 77 20 103/65 97 11/27/18 08:24 11/27/18 08:24 11/27/18 08:24 11/27/18 08:24 11/27/18 08:24 Intake and Output: 11/27/18 11/27/18 06:59 18:59 Intake Total 550 Balance 550 - Medications Medications: Current Medications Glipizide (Glucotrol) 5 mg PO ACBD [facility] Last Admin: 11/27/18 07:32 Dose: Not Given Heparin Sodium (Porcine) (Heparin) 5,000 units SC Q12 [facility] Last Admin: 11/26/18 21:43 Dose: 5,000 units Home Med (Empagliflozin [Jardiance]) 10 mg PO DAILY [facility] Vancomycin HCl 1 gm/ Sodium (Chloride) 250 mls @ 166.7 mls/hr IVPB Q12H [facility]; Protocol Last Admin: 11/27/18 03:59 Dose: 166.7 mls/hr Piperacillin Sod/Tazobactam (Sod 3.375 gm/ Sodium Chloride) 100 mls @ 200 mls/hr IVPB Q8H [facility]; Protocol Last Admin: 11/27/18 01:58 Dose: 200 mls/hr Ibuprofen (Motrin Tab) 400 mg PO Q8 PRN PRN Reason: Pain, moderate (4-7) Last Admin: 11/27/18 02:48 Dose: 400 mg Influenza Virus Vaccine (Flucelvax Quad [id number] Syr) 60 mcg IM .ONCE ONE Stop: 11/28/18 10:01 Insulin Glargine (Lantus) 12 unit SC HS [facility] Insulin Human Regular (Novolin R) 0 unit SC ACHS [facility]; Protocol Last Admin: 11/27/18 07:34 Dose: Not Given Metformin HCl (Glucophage) 1,000 mg PO BID [facility] Last Admin: 11/26/18 17:45 Dose: 1,000 mg Pantoprazole Sodium (Protonix Ec Tab) 40 mg PO DAILY [facility] Last Admin: 11/26/18 10:11 Dose: 40 mg Pneumococcal Polyvalent Vaccine (Pneumovax 23 Vaccine) 0.5 ml IM .ONCE ONE Stop: 11/28/18 10:01 Prednisolone Acetate (Pred Forte 1% Opht Susp) 1 ml OS TID [facility] Last Admin: 11/26/18 17:46 Dose: 1 applic Sitagliptin Phosphate (Januvia) 100 mg PO DAILY [facility] Last Admin: 11/26/18 10:11 Dose: 100 mg - Labs Labs: 11/26/18 07:08 11/26/18 07:08
[2018-11-27] MEDS: Pantoprazole 40 mg EC Tab PO SCH (09:55)
[2018-11-27] MEDS: PrednisoLONE 1% Opht Susp(5 ml) OS SCH ×3 (09:55→17:19)
--- NOTE | 2018-11-27 09:58 | CP.PCM.PN ---
Subjective - Date & Time of Evaluation Date of Evaluation: 11/27/18 Time of Evaluation: 09:56 - Subjective Subjective: Podiatry Progress Note - Dr. Orta 48F seen and evaluated for right leg wound. No acute events overnight. Patient anxious on rounds; reports constant pain around wound and apprehensive for dressing change. Denies n/v/f/d/c/sob/reza/cp. Objective - Vital Signs/Intake and Output Vital Signs (last 24 hours): Temp Pulse Resp BP Pulse Ox 98 F 77 20 103/65 97 11/27/18 08:24 11/27/18 08:24 11/27/18 08:24 11/27/18 08:24 11/27/18 08:24 Intake and Output: 11/27/18 11/27/18 06:59 18:59 Intake Total 550 Balance 550 - Medications Medications: Current Medications Glipizide (Glucotrol) 5 mg PO ACBD [facility] Last Admin: 11/27/18 07:32 Dose: Not Given Heparin Sodium (Porcine) (Heparin) 5,000 units SC Q12 [facility] Last Admin: 11/26/18 21:43 Dose: 5,000 units Home Med (Empagliflozin [Jardiance]) 10 mg PO DAILY [facility] Vancomycin HCl 1 gm/ Sodium (Chloride) 250 mls @ 166.7 mls/hr IVPB Q12H [facility]; Protocol Last Admin: 11/27/18 03:59 Dose: 166.7 mls/hr Piperacillin Sod/Tazobactam (Sod 3.375 gm/ Sodium Chloride) 100 mls @ 200 mls/hr IVPB Q8H [facility]; Protocol Last Admin: 11/27/18 01:58 Dose: 200 mls/hr Ibuprofen (Motrin Tab) 400 mg PO Q8 PRN PRN Reason: Pain, moderate (4-7) Last Admin: 11/27/18 02:48 Dose: 400 mg Influenza Virus Vaccine (Flucelvax Quad 0274-7005 Syr) 60 mcg IM .ONCE ONE Stop: 11/28/18 10:01 Insulin Glargine (Lantus) 12 unit SC HS [facility] Insulin Human Regular (Novolin R) 0 unit SC ACHS [facility]; Protocol Last Admin: 11/27/18 07:34 Dose: Not Given Metformin HCl (Glucophage) 1,000 mg PO BID [facility] Last Admin: 11/27/18 09:53 Dose: Not Given Pantoprazole Sodium (Protonix Ec Tab) 40 mg PO DAILY [facility] Last Admin: 11/26/18 10:11 Dose: 40 mg Pneumococcal Polyvalent Vaccine (Pneumovax 23 Vaccine) 0.5 ml IM .ONCE ONE Stop: 11/28/18 10:01 Prednisolone Acetate (Pred Forte 1% Opht Susp) 1 ml OS TID [facility] Last Admin: 11/26/18 17:46 Dose: 1 applic Sitagliptin Phosphate (Januvia) 100 mg PO DAILY [facility] Last Admin: 11/27/18 09:53 Dose: Not Given - Labs Labs: 11/26/18 07:08 11/26/18 07:08 - Constitutional Appears: Well, Non-toxic - Head Exam Head Exam: ATRAUMATIC - Eye Exam Eye Exam: Normal appearance - Extremities Exam Additional comments: RLE focused VASC: DP and PT pulses weakly palpable 1/4. CFT <3 seconds to all digits. Temperature gradient warm to warm b/l. No increase in warmth noted periwound. NEURO: Gross sensation intact. DERM: Wound measuring approximately 7 x 15 x 0.1 cm noted to right lower leg just proximal to ankle joint encompassing 75% of leg circumference. Wound is 90% granular 10% fibrotic with rolled edges periwound; serosanguinous drainage present; no purulence; no fluctuance; no malodor. ORTHO: Severe pain on palpation to right leg wound. Assessment and Plan - Assessment and Plan (Free Text) Assessment: 48 year old female PMHx DM with right leg wound -Infectious vs. malignancy, possible pyoderma Plan: Patient seen and evaluated at bedside Discussed with attending, Dr. Orta Afebrile, WBC WNL 7.7 R leg wound culture: pseudomonas aeruginosa and staph epidermidis ID recs appreciated Continue abx; vanc zosyn sensitive Continue local wound care: xeroform, DSD WBAT bilateral LE Continue pain mgmt Podiatry will continue to follow
--- NOTE | 2018-11-27 11:54 | PN ---
DATE: 11/27/2018 LOCATION: Room 371. SUBJECTIVE: This is a 48-year-old female with recent uncontrolled type 2 insulin-requiring diabetes, now being followed closely for metabolic management. She also has some underlying right leg nonhealing neuropathic ulceration and receiving IV antibiotic management with local debridement as noted thereof. Her glycemic levels are fluctuating and have ranged from 182 to 191 mg/dL. Her A1c has been reported as 8.3%, which is really suboptimal and indicative of poor metabolic control prior to this admission despite the intake of oral hypoglycemic drug regimen given in combination as noted. ASSESSMENT AND PLAN: So, at this time, we will add basal insulin given as Lantus at 12 units subcutaneous at bedtime daily as given. We will continue the metformin given as 1 g b.i.d. with Januvia at 100 mg daily and glipizide at 10 mg b.i.d. as ordered. We will also obtain serial chemistries and supplement accordingly as needed. We will follow. Gwen Alford MD
[2018-11-27] MEDS: Oxycodone/Acetaminophen 5/325 mg Tab PO PRN ×2 (11:58→19:00)
--- NOTE | 2018-11-27 17:00 | CP.PCM.PN ---
Subjective - Date & Time of Evaluation Date of Evaluation: 11/27/18 Time of Evaluation: 09:00 - Subjective Subjective: seen on rounds appears comfortable Objective - Vital Signs/Intake and Output Vital Signs (last 24 hours): Temp Pulse Resp BP Pulse Ox 97.8 F 73 20 99/66 L 96 11/27/18 16:49 11/27/18 16:49 11/27/18 16:49 11/27/18 16:49 11/27/18 16:49 Intake and Output: 11/27/18 11/27/18 06:59 18:59 Intake Total 550 500 Balance 550 500 - Medications Medications: Current Medications Glipizide (Glucotrol) 5 mg PO ACBD [facility] Last Admin: 11/27/18 07:32 Dose: Not Given Heparin Sodium (Porcine) (Heparin) 5,000 units SC Q12 [facility] Last Admin: 11/27/18 09:54 Dose: 5,000 units Home Med (Empagliflozin [Jardiance]) 10 mg PO DAILY [facility] Vancomycin HCl 1 gm/ Sodium (Chloride) 250 mls @ 166.7 mls/hr IVPB Q12H [facility]; Protocol Last Admin: 11/27/18 03:59 Dose: 166.7 mls/hr Piperacillin Sod/Tazobactam (Sod 3.375 gm/ Sodium Chloride) 100 mls @ 200 mls/hr IVPB Q8H [facility]; Protocol Last Admin: 11/27/18 10:04 Dose: 200 mls/hr Ibuprofen (Motrin Tab) 400 mg PO Q8 PRN PRN Reason: Pain, moderate (4-7) Last Admin: 11/27/18 02:48 Dose: 400 mg Influenza Virus Vaccine (Flucelvax Quad 5461-2173 Syr) 60 mcg IM .ONCE ONE Stop: 11/28/18 10:01 Insulin Glargine (Lantus) 12 unit SC HS [facility] Insulin Human Regular (Novolin R) 0 unit SC ACHS [facility]; Protocol Last Admin: 11/27/18 11:49 Dose: Not Given Metformin HCl (Glucophage) 1,000 mg PO BID [facility] Last Admin: 11/27/18 09:53 Dose: Not Given Oxycodone/Acetaminophen (Percocet 5/325 Mg Tab) 1 tab PO Q6H PRN PRN Reason: Pain, severe (8-10) Stop: 11/30/18 10:16 Last Admin: 11/27/18 11:58 Dose: 1 tab Pantoprazole Sodium (Protonix Ec Tab) 40 mg PO DAILY [facility] Last Admin: 11/27/18 09:55 Dose: 40 mg Pneumococcal Polyvalent Vaccine (Pneumovax 23 Vaccine) 0.5 ml IM .ONCE ONE Stop: 11/28/18 10:01 Prednisolone Acetate (Pred Forte 1% Opht Susp) 1 ml OS TID [facility] Last Admin: 11/27/18 13:18 Dose: 1 applic Sitagliptin Phosphate (Januvia) 100 mg PO DAILY [facility] Last Admin: 11/27/18 09:53 Dose: Not Given - Labs Labs: 11/26/18 07:08 11/26/18 07:08 - Constitutional Appears: Non-toxic, Chronically Ill - Head Exam Head Exam: NORMOCEPHALIC - Eye Exam Eye Exam: absent: Scleral icterus - ENT Exam ENT Exam: Mucous Membranes Dry - Neck Exam Neck Exam: absent: Lymphadenopathy - Respiratory Exam Respiratory Exam: Decreased Breath Sounds - Cardiovascular Exam Cardiovascular Exam: REGULAR RHYTHM - GI/Abdominal Exam GI & Abdominal Exam: Distended, Soft - Rectal Exam Rectal Exam: Deferred - Exam Exam: NORMAL INSPECTION - Extremities Exam Extremities Exam: absent: Pedal Edema - Back Exam Back Exam: absent: CVA tenderness (L), CVA tenderness (R) - Neurological Exam Neurological Exam: Alert, Awake, CN II-XII Intact, Oriented x3 - Psychiatric Exam Psychiatric exam: Normal Mood - Skin Skin Exam: Dry Additional comments: VASC: DP and PT pulses weakly palpable 1/4. CFT <3 seconds to all digits. Temperature gradient warm to warm b/l. No increase in warmth noted periwound. NEURO: Gross sensation intact. DERM: Wound measuring approximately 7 x 15 x 0.1 cm noted to right lower leg just proximal to ankle joint encompassing 75% of leg circumference. Wound is 90% granular 10% fibrotic with rolled edges periwound; serosanguinous drainage present; no purulence; no fluctuance; no malodor. ORTHO: Severe pain on palpation to right leg wound. 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
[2018-11-27] MEDS ORDERED: (Lantus) Insulin Glargine, Recombinant SC SCH (22:00)
--- NOTE | 2018-11-28 00:18 | PN ---
DATE: 11/27/2018 SUBJECTIVE: The patient is seen and examined at bedside. The patient is still complaining of right leg pain and unable to ambulate, unable to bear weight on that leg secondary to pain. Denies any other new complaints. PHYSICAL EXAMINATION: GENERAL: A middle-aged female, lying in bed, in no acute distress. VITAL SIGNS: Blood pressure is 99/66, pulse 73, respirations 20, temperature 97.8 degrees Fahrenheit, O2 sat is 96% on room air. HEENT: Pupils equal, round, reactive to light and accommodation. Extraocular muscles intact. No icterus. No pallor. No oral thrush. No pharyngeal congestion. NECK: Supple. No JVD. LUNGS: Bilateral vesicular breath sounds. No wheezing. No rhonchi. CARDIOVASCULAR SYSTEM: S1, S2 present. Regular. ABDOMEN: Soft, nontender. Bowel sounds present. No guarding. No rigidity. No rebound tenderness noted. CENTRAL NERVOUS SYSTEM: Alert, awake, oriented x3. No focal deficits noted. EXTREMITIES: Right foot with a nonhealing ulcer with a dressing in place. Palpable peripheral pulses. MEDICATIONS: Include glipizide 5 mg twice daily, subcutaneous Heparin 5000 units for DVT prophylaxis, ibuprofen 400 mg p.o. every 8 hours p.r.n., Lantus 12 units subcutaneous at bedtime, metformin 1000 mg p.o. b.i.d., Percocet 1 tab p.o. every 6 hours p.r.n., Protonix 40 mg daily, Zosyn 3.375 g IV every 8 hours, prednisolone eye drops three times a day, Januvia 100 mg daily, vancomycin 1 g IV every 12 hours. LABORATORY DATA: Accu-Chek from today 182, 191, 138, 147, 158. Gram-stain wound culture shows Pseudomonas aeruginosa and Staphylococcus epidermidis, sensitive to ciprofloxacin and gentamicin, Zosyn, vancomycin, tigecycline, and rifampin. Mycobacterial stain and no acid fast bacilli seen. ASSESSMENT AND PLAN: Middle-aged female with history of uncontrolled diabetes mellitus, rheumatoid arthritis, admitted for right lower extremity nonhealing ulcer. Wound culture are growing Pseudomonas and Staphylococcus epidermidis, on Zosyn and vancomycin. Infectious Disease followup, Podiatry followup, Endocrinology followup appreciated. The patient is started on insulin. We will give Percocet as needed for pain. We will request Physical Therapy. We will follow up with Dr. Cruz regarding the length of antibiotics and social media marketing manager for discharge planning. Yamil Horn MD
[2018-11-28] MEDS: Piperacillin/Tazobact 3.375 GM in Sodium Chloride 100 ML IVPB SCH ×3 (01:03→18:01)
[2018-11-28 04:29] LABS: ALB/GLOB RATIO 1.1 (1.0-2.1); ALBUMIN 3.3 g/dL (3.5-5.0); ALT/SGPT 8 U/L (9-52); AST/SGOT 37 U/L (14-36); BLOOD UREA NITROGEN 18 mg/dL (7-17); CALCIUM 9.1 mg/dl (8.6-10.4); GFR NON-AFRICAN AMERICAN > 60
[2018-11-28 07:35] LABS: BASO % 0.8 % (0.0-2.0); EOS # 0.1 K/uL (0.0-0.7); EOS % 1.7 % (0.0-4.0); HEMOGLOBIN 9.6 g/dL (11.0-16.0); LYMPH # 0.9 K/uL (1.0-4.3); LYMPH % 16.2 % (20.0-40.0); MEAN CELL VOLUME 77.1 fL (81.0-99.0); MEAN CORPUSCULAR HEMOGLOBIN 24.1 pg (27.0-31.0); MEAN CORPUSCULAR HGB CONC 31.3 g/dL (33.0-37.0); MEAN PLATELET VOLUME 9.8 fL (7.2-11.7); MONO # 0.6 K/uL (0.0-0.8); MONO % 10.2 % (0.0-10.0); NEUT # 3.9 K/uL (1.8-7.0); NEUT % 71.1 % (50.0-75.0); RBC 3.98 Mil/uL (3.80-5.20); RED CELL DISTRIBUTION WIDTH 17.4 % (11.5-14.5); WHITE BLOOD COUNT 5.5 K/uL (4.8-10.8)
[2018-11-28] MEDS: (Novolin R) Insulin Human Regular 100 units/ml vial SC SCH ×4 (07:37→21:21)
[2018-11-28] MEDS ORDERED: Pneumococcal 23-Valent Vaccine IM ONE (10:00)
[2018-11-28] MEDS ORDERED: Influenza Vaccine 60 mcg/0.5 mL SYR (4YR UP) IM ONE (10:00)
[2018-11-28] MEDS: Pantoprazole 40 mg EC Tab PO SCH (10:31)
[2018-11-28] MEDS: JARDIANCE 10MG PO SCH (10:33)
[2018-11-28] MEDS: PrednisoLONE 1% Opht Susp(5 ml) OS SCH ×3 (10:45→18:02)
--- NOTE | 2018-11-28 11:02 | CP.PCM.PN ---
Subjective - Date & Time of Evaluation Date of Evaluation: 11/28/18 Time of Evaluation: 10:58 - Subjective Subjective: Podiatry Progress Note - Dr. Orta 48F seen and evaluated for right leg wound. No acute events overnight. Patient anxious on rounds; reports constant severe pain around wound and apprehensive for dressing change. Denies n/v/f/d/c/sob/reza/cp. Objective - Vital Signs/Intake and Output Vital Signs (last 24 hours): Temp Pulse Resp BP Pulse Ox 97.8 F 69 20 101/69 98 11/28/18 07:00 11/28/18 07:00 11/28/18 07:00 11/28/18 07:00 11/28/18 07:00 Intake and Output: 11/28/18 11/28/18 06:59 18:59 Intake Total 500 430 Balance 500 430 - Medications Medications: Current Medications Glipizide (Glucotrol) 5 mg PO ACBD [facility] Last Admin: 11/28/18 10:31 Dose: 5 mg Heparin Sodium (Porcine) (Heparin) 5,000 units SC Q12 [facility] Last Admin: 11/28/18 10:33 Dose: 5,000 units Home Med (Patient's Own Medication) 1 tab PO DAILY [facility] Last Admin: 11/28/18 10:33 Dose: 1 tab Vancomycin HCl 1 gm/ Sodium (Chloride) 250 mls @ 166.7 mls/hr IVPB Q12H [facility]; Protocol Last Admin: 11/28/18 04:59 Dose: 166.7 mls/hr Piperacillin Sod/Tazobactam (Sod 3.375 gm/ Sodium Chloride) 100 mls @ 200 mls/hr IVPB Q8H [facility]; Protocol Last Admin: 11/28/18 10:34 Dose: 200 mls/hr Ibuprofen (Motrin Tab) 400 mg PO Q8 PRN PRN Reason: Pain, moderate (4-7) Last Admin: 11/27/18 02:48 Dose: 400 mg Insulin Human Regular (Novolin R) 0 unit SC ACHS [facility]; Protocol Last Admin: 11/28/18 07:37 Dose: Not Given Metformin HCl (Glucophage) 1,000 mg PO BID [facility] Last Admin: 11/28/18 10:31 Dose: 1,000 mg Oxycodone/Acetaminophen (Percocet 5/325 Mg Tab) 1 tab PO Q6H PRN PRN Reason: Pain, severe (8-10) Stop: 11/30/18 10:16 Last Admin: 11/27/18 19:00 Dose: 1 tab Pantoprazole Sodium (Protonix Ec Tab) 40 mg PO DAILY [facility] Last Admin: 11/28/18 10:31 Dose: 40 mg Prednisolone Acetate (Pred Forte 1% Opht Susp) 1 ml OS TID [facility] Last Admin: 11/28/18 10:45 Dose: 1 applic Sitagliptin Phosphate (Januvia) 100 mg PO DAILY [facility] Last Admin: 11/28/18 10:32 Dose: 100 mg - Labs Labs: 11/28/18 07:27 11/28/18 04:08 - Constitutional Appears: Well, Non-toxic - Head Exam Head Exam: ATRAUMATIC - Extremities Exam Additional comments: RLE focused VASC: DP and PT pulses weakly palpable 1/4. CFT <3 seconds to all digits. Temperature gradient warm to warm b/l. No increase in warmth noted periwound. NEURO: Gross sensation intact. DERM: Raised Wound measuring approximately 7 x 15 x 0.1 cm noted to right lower leg just proximal to ankle joint encompassing 75% of leg circumference. Wound is 50% fibrotic and 50% granular with rolled edges periwound; serosanguinous drainage present; no purulence; no fluctuance; no malodor. ORTHO: Severe pain on palpation to right leg wound. Assessment and Plan - Assessment and Plan (Free Text) Assessment: 48 year old female PMHx DM with right leg wound -Infectious vs. malignancy, possible pyoderma Plan: Patient seen and evaluated at bedside Discussed with attending, Dr. Orta Afebrile, WBC WNL 5.5 R leg wound culture: pseudomonas aeruginosa and staph epidermidis ID recs appreciated Continue abx; vanc zosyn sensitive Continue local wound care every other day due to pain: xeroform, DSD WBAT bilateral LE Continue pain mgmt Podiatry plan: OR for debridement and biopsy of leg wound on Friday 7:30 am
--- NOTE | 2018-11-28 12:29 | PN ---
DATE: 11/28/2018 LOCATION: Room 371. SUBJECTIVE: This is a 48-year-old female with recent uncontrolled type 2 insulin-requiring diabetes, now being followed closely for metabolic management. Her glycemic fluctuations are and glucose values ranged from 76 to 158 and 197 mg/dL. LABORATORY DATA: Her chemistry showed a BUN 9, sodium 136, potassium 4.2, chloride 108, CO2 of 21, glucose 128, and creatinine 0.5. ASSESSMENT AND PLAN: So at this time, we will actually discontinue the basal insulin given as Lantus at 12 units subcutaneous at bedtime daily as given. We will continue the triple oral hypoglycemic therapy as given with Januvia given as 100 mg daily with metformin at 1 g b.i.d., and glipizide as 5 mg t.i.d. We will maximize her oral hypoglycemic therapy as indicated. We will obtain serial chemistries and supplement accordingly as needed. We will follow. Gwen Alford MD
--- NOTE | 2018-11-28 15:56 | CP.PCM.PN ---
Subjective - Date & Time of Evaluation Date of Evaluation: 11/28/18 Time of Evaluation: 15:56 - Subjective Subjective: Progress note dictated # [id number] Objective - Vital Signs/Intake and Output Vital Signs (last 24 hours): Temp Pulse Resp BP Pulse Ox 97.8 F 69 20 101/69 98 11/28/18 07:00 11/28/18 07:00 11/28/18 07:00 11/28/18 07:00 11/28/18 07:00 Intake and Output: 11/28/18 11/28/18 06:59 18:59 Intake Total 500 430 Balance 500 430 - Medications Medications: Current Medications Glipizide (Glucotrol) 5 mg PO ACBD [facility] Last Admin: 11/28/18 10:31 Dose: 5 mg Heparin Sodium (Porcine) (Heparin) 5,000 units SC Q12 [facility] Last Admin: 11/28/18 10:33 Dose: 5,000 units Home Med (Patient's Own Medication) 1 tab PO DAILY [facility] Last Admin: 11/28/18 10:33 Dose: 1 tab Vancomycin HCl 1 gm/ Sodium (Chloride) 250 mls @ 166.7 mls/hr IVPB Q12H [facility]; Protocol Last Admin: 11/28/18 04:59 Dose: 166.7 mls/hr Piperacillin Sod/Tazobactam (Sod 3.375 gm/ Sodium Chloride) 100 mls @ 200 mls /hr IVPB Q8H [facility]; Protocol Last Admin: 11/28/18 10:34 Dose: 200 mls/hr Ibuprofen (Motrin Tab) 400 mg PO Q8 PRN PRN Reason: Pain, moderate (4-7) Last Admin: 11/27/18 02:48 Dose: 400 mg Insulin Human Regular (Novolin R) 0 unit SC ACHS [facility]; Protocol Last Admin: 11/28/18 11:56 Dose: Not Given Metformin HCl (Glucophage) 1,000 mg PO BID [facility] Last Admin: 11/28/18 10:31 Dose: 1,000 mg Morphine Sulfate (Morphine) 1 mg IVP Q6 PRN PRN Reason: Pain, Mild (1-3) Oxycodone/Acetaminophen (Percocet 5/325 Mg Tab) 1 tab PO Q6H PRN PRN Reason: Pain, severe (8-10) Stop: 11/30/18 10:16 Last Admin: 11/27/18 19:00 Dose: 1 tab Pantoprazole Sodium (Protonix Ec Tab) 40 mg PO DAILY [facility] Last Admin: 11/28/18 10:31 Dose: 40 mg Prednisolone Acetate (Pred Forte 1% Opht Susp) 1 ml OS TID [facility] Last Admin: 11/28/18 13:39 Dose: 1 applic Sitagliptin Phosphate (Januvia) 100 mg PO DAILY [facility] Last Admin: 11/28/18 10:32 Dose: 100 mg - Labs Labs: 11/28/18 07:27 11/28/18 04:08
--- NOTE | 2018-11-28 23:18 | PN ---
DATE: 11/28/2018 SUBJECTIVE: The patient is seen and examined at bedside. The patient complains of persistent pain at the wound site, unable to bear weight on that side secondary to pain. Denies any other new complaints. PHYSICAL EXAMINATION: GENERAL: Middle-aged female, lying in bed, in no acute distress. VITAL SIGNS: Blood pressure 104/67, pulse 73, respirations 20, temperature 98 degrees Fahrenheit, O2 sat 96% on room air. HEENT: Pupils are equal, round, and reacting to light and accommodation. Extraocular muscles are intact. No icterus. No pallor. No oral thrush. No oropharyngeal congestion. NECK: Supple. No JVD. LUNGS: Bilateral vesicular breath sounds. No wheezing. No rhonchi. CARDIOVASCULAR SYSTEM: S1 and S2 present, regular. ABDOMEN: Soft and nontender. Bowel sounds present. No guarding. No rigidity. No rebound tenderness noted. CENTRAL NERVOUS SYSTEM: Alert, awake, oriented x3. No focal deficits noted. EXTREMITIES: No edema. Right lower extremity nonhealing ulcer with dressing in place. MEDICATIONS: Include glipizide 5 mg t.i.d., heparin 5000 units every 12 hours, vancomycin 1 g IV every 12 hours, Januvia 100 mg daily, prednisolone eye drops, Zosyn 3.375 g IV every 8 hours, Protonix 40 mg daily, Percocet one tablet every 6 hours p.r.n., morphine 1 mg IV push every 6 hours p.r.n., metformin 1000 mg p.o. b.i.d. LABORATORY DATA: Labs from today: WBC 5.5, hemoglobin 9.6, hematocrit 30.7, and platelets 170. Sodium 136, potassium 4.2, chloride 108, bicarb 21, BUN 18, creatinine 0.5, glucose 76, calcium 9.1. AST 37, ALT 8, alkaline phosphatase 50. Fungal smear negative, mycobacterial culture negative so far. ASSESSMENT AND PLAN: Middle-aged female with history of diabetes mellitus, rheumatoid arthritis. Admitted for nonhealing right foot ulcer. Wound culture positive for Pseudomonas and Staphylococcus epidermidis, on Zosyn and vancomycin. Accu-Cheks are fair on current regimen. The patient is scheduled for possible operating room for wound debridement and biopsy of leg wound on Friday. Continue with other current medications. Continue with pain medication with morphine. Follow up with Infectious Disease and Podiatry. Yamil Horn MD [facility] # [id number]
[2018-11-29] MEDS: Oxycodone/Acetaminophen 5/325 mg Tab PO PRN ×3 (01:45→17:14)
[2018-11-29] MEDS: Piperacillin/Tazobact 3.375 GM in Sodium Chloride 100 ML IVPB SCH ×3 (01:55→17:19)
[2018-11-29] MEDS: (Novolin R) Insulin Human Regular 100 units/ml vial SC SCH ×4 (07:48→21:24)
[2018-11-29] MEDS: Pantoprazole 40 mg EC Tab PO SCH (10:23)
[2018-11-29] MEDS: JARDIANCE 10MG PO SCH (10:29)
[2018-11-29] MEDS: PrednisoLONE 1% Opht Susp(5 ml) OS SCH ×3 (10:30→17:19)
--- NOTE | 2018-11-29 15:56 | CP.PCM.PN ---
Subjective - Date & Time of Evaluation Date of Evaluation: 11/29/18 Time of Evaluation: 15:56 - Subjective Subjective: Progress note dictated #[id number] Objective - Vital Signs/Intake and Output Vital Signs (last 24 hours): Temp Pulse Resp BP Pulse Ox 98.1 F 76 20 97/60 L 98 11/29/18 07:00 11/29/18 07:00 11/29/18 07:00 11/29/18 07:00 11/29/18 07:00 Intake and Output: 11/29/18 11/29/18 06:59 18:59 Intake Total 1150 Balance 1150 - Medications Medications: Current Medications Glipizide (Glucotrol) 5 mg PO ACBD [facility] Last Admin: 11/29/18 07:49 Dose: Not Given Home Med (Patient's Own Medication) 1 tab PO DAILY [facility] Last Admin: 11/29/18 10:29 Dose: 1 tab Vancomycin HCl 1 gm/ Sodium (Chloride) 250 mls @ 166.7 mls/hr IVPB Q12H [facility]; Protocol Last Admin: 11/29/18 03:58 Dose: 166.7 mls/hr Piperacillin Sod/Tazobactam (Sod 3.375 gm/ Sodium Chloride) 100 mls @ 200 mls/hr IVPB Q8H [facility]; Protocol Last Admin: 11/29/18 10:28 Dose: 200 mls/hr Ibuprofen (Motrin Tab) 400 mg PO Q8 PRN PRN Reason: Pain, moderate (4-7) Last Admin: 11/27/18 02:48 Dose: 400 mg Insulin Human Regular (Novolin R) 0 unit SC ACHS [facility]; Protocol Last Admin: 11/29/18 11:37 Dose: Not Given Morphine Sulfate (Morphine) 1 mg IVP Q6 PRN PRN Reason: Pain, Mild (1-3) Oxycodone/Acetaminophen (Percocet 5/325 Mg Tab) 1 tab PO Q6H PRN PRN Reason: Pain, severe (8-10) Stop: 11/30/18 10:16 Last Admin: 11/29/18 10:22 Dose: 1 tab Pantoprazole Sodium (Protonix Ec Tab) 40 mg PO DAILY [facility] Last Admin: 11/29/18 10:23 Dose: 40 mg Prednisolone Acetate (Pred Forte 1% Opht Susp) 1 ml OS TID [facility] Last Admin: 11/29/18 13:42 Dose: Not Given Sitagliptin Phosphate (Januvia) 100 mg PO DAILY [facility] Last Admin: 11/29/18 10:23 Dose: 100 mg - Labs Labs: 11/28/18 07:27 11/28/18 04:08
--- NOTE | 2018-11-29 17:23 | CP.PCM.PN ---
Subjective - Date & Time of Evaluation Date of Evaluation: 11/29/18 Time of Evaluation: 09:00 - Subjective Subjective: comfortable afebrile Objective - Vital Signs/Intake and Output Vital Signs (last 24 hours): Temp Pulse Resp BP Pulse Ox 98.0 F 71 20 108/69 98 11/29/18 16:00 11/29/18 16:00 11/29/18 16:00 11/29/18 16:00 11/29/18 16:00 Intake and Output: 11/29/18 11/29/18 06:59 18:59 Intake Total 1150 Balance 1150 - Medications Medications: Current Medications Glipizide (Glucotrol) 5 mg PO ACBD [facility] Last Admin: 11/29/18 17:13 Dose: 5 mg Home Med (Patient's Own Medication) 1 tab PO DAILY [facility] Last Admin: 11/29/18 10:29 Dose: 1 tab Vancomycin HCl 1 gm/ Sodium (Chloride) 250 mls @ 166.7 mls/hr IVPB Q12H [facility]; Protocol Last Admin: 11/29/18 15:58 Dose: 166.7 mls/hr Piperacillin Sod/Tazobactam (Sod 3.375 gm/ Sodium Chloride) 100 mls @ 200 mls/hr IVPB Q8H [facility]; Protocol Last Admin: 11/29/18 17:19 Dose: 200 mls/hr Ibuprofen (Motrin Tab) 400 mg PO Q8 PRN PRN Reason: Pain, moderate (4-7) Last Admin: 11/27/18 02:48 Dose: 400 mg Insulin Human Regular (Novolin R) 0 unit SC [facility]; Protocol Last Admin: 11/29/18 17:13 Dose: Not Given Morphine Sulfate (Morphine) 1 mg IVP Q6 PRN PRN Reason: Pain, Mild (1-3) Oxycodone/Acetaminophen (Percocet 5/325 Mg Tab) 1 tab PO Q6H PRN PRN Reason: Pain, severe (8-10) Stop: 11/30/18 10:16 Last Admin: 11/29/18 17:14 Dose: 1 tab Pantoprazole Sodium (Protonix Ec Tab) 40 mg PO DAILY [facility] Last Admin: 11/29/18 10:23 Dose: 40 mg Prednisolone Acetate (Pred Forte 1% Opht Susp) 1 ml OS TID [facility] Last Admin: 11/29/18 17:19 Dose: 1 applic Sitagliptin Phosphate (Januvia) 100 mg PO DAILY [facility] Last Admin: 11/29/18 10:23 Dose: 100 mg - Labs Labs: 11/28/18 07:27 11/28/18 04:08 - Constitutional Appears: Non-toxic, Chronically Ill - Head Exam Head Exam: ATRAUMATIC, NORMOCEPHALIC - Eye Exam Eye Exam: absent: Scleral icterus - ENT Exam ENT Exam: Mucous Membranes Dry - Neck Exam Neck Exam: absent: Lymphadenopathy - Respiratory Exam Respiratory Exam: Decreased Breath Sounds - Cardiovascular Exam Cardiovascular Exam: REGULAR RHYTHM - GI/Abdominal Exam GI & Abdominal Exam: Distended - Rectal Exam Rectal Exam: Deferred - Extremities Exam Extremities Exam: absent: Pedal Edema - Back Exam Back Exam: absent: CVA tenderness (L), CVA tenderness (R) - Neurological Exam Neurological Exam: Alert, Awake - Skin Additional comments: VASC: DP and PT pulses weakly palpable 1/4. CFT <3 seconds to all digits. T emperature gradient warm to warm b/l. No increase in warmth noted periwound. NEURO: Gross sensation intact. DERM: Raised Wound measuring approximately 7 x 15 x 0.1 cm noted to right lower leg just proximal to ankle joint encompassing 75% of leg circumference. Wound is 50% fibrotic and 50% granular with rolled edges periwound; serosanguinous drainage present; no purulence; no fluctuance; no malodor. ORTHO: Severe pain on palpation to right leg wound. Assessment and Plan (1) Abscess of right lower extremity excluding foot Status: Acute (2) Diabetes mellitus type 2 in nonobese Status: Acute - Assessment and Plan (Free Text) Assessment: cont iv antibiotics/ wound care may need long course of rx
--- NOTE | 2018-11-30 01:30 | PN ---
DATE: 11/29/2018 SUBJECTIVE: The patient is seen and examined at bedside. The patient is still complaining of right lower extremity pain, not able to ambulate. Denies any new complaints. PHYSICAL EXAMINATION: GENERAL: Middle-aged female, lying in bed, in no acute distress. VITAL SIGNS: Blood pressure 108/69, pulse 71, respirations 20, temperature 98 degrees Fahrenheit, O2 sat 98% on room air. HEENT: Pupils are equal, round, and reacting to light and accommodation. Extraocular muscles are intact. No icterus. No pallor. No oral thrush. No oropharyngeal congestion. NECK: Supple. No JVD. LUNGS: Bilateral vesicular breath sounds. No wheezing. No rhonchi. CARDIOVASCULAR SYSTEM: S1 and S2 present, regular. ABDOMEN: Soft and nontender. Bowel sounds present. No guarding. No rigidity. No rebound tenderness noted. CENTRAL NERVOUS SYSTEM: Alert, awake, oriented x3. No focal deficits noted. EXTREMITIES: No edema. Palpable peripheral pulses. Right lower extremity with nonhealing ulcer with dressing in place. MEDICATIONS: Include glipizide 5 mg b.i.d., Motrin as needed, morphine 1 mg IV every 6 hours p.r.n., Percocet as needed, Protonix 40 mg daily, Zosyn 3.375 g IV every 8 hours, Januvia 100 mg daily, and vancomycin 1 g IV every 12 hours. LABORATORY DATA: Labs from today: Accu-chek 105, 138, 78, 94, and 88. ASSESSMENT AND PLAN: Middle-aged female with history of diabetes mellitus with right lower extremity nonhealing ulcer. Wound culture growing Pseudomonas and Staphylococcus epidermidis, on vancomycin and Zosyn for possible biopsy and wound debridement on Friday. The patient is at acceptable risk for scheduled procedure. Repeat labs in a.m. Continue with other current medications. Continue with wound care. Yamil Horn MD
[2018-11-30] MEDS: Piperacillin/Tazobact 3.375 GM in Sodium Chloride 100 ML IVPB SCH ×3 (02:04→19:21)
--- NOTE | 2018-11-30 06:52 | PN ---
DATE: 11/29/2018 ENDO FOLLOWUP NOTE SUBJECTIVE: , uncontrolled type 2 insulin-requiring diabetes now being followed closely for metabolic management. Her glycemic levels are Januvia 100 mg daily and glipizide given as . Gwen Alford MD
[2018-11-30 07:44] LABS: BASO % 0.6 % (0.0-2.0); EOS # 0.1 K/uL (0.0-0.7); EOS % 1.7 % (0.0-4.0); HEMOGLOBIN 9.9 g/dL (11.0-16.0); LYMPH # 0.7 K/uL (1.0-4.3); MEAN CELL VOLUME 76.6 fL (81.0-99.0); MEAN CORPUSCULAR HEMOGLOBIN 24.3 pg (27.0-31.0); MEAN CORPUSCULAR HGB CONC 31.7 g/dL (33.0-37.0); MEAN PLATELET VOLUME 9.5 fL (7.2-11.7); MONO # 0.7 K/uL (0.0-0.8); MONO % 13.4 % (0.0-10.0); NEUT % 72.3 % (50.0-75.0); RBC 4.07 Mil/uL (3.80-5.20); RED CELL DISTRIBUTION WIDTH 17.4 % (11.5-14.5); WHITE BLOOD COUNT 5.5 K/uL (4.8-10.8)
[2018-11-30 07:45] LABS: ALB/GLOB RATIO 1.2 (1.0-2.1); ALBUMIN 3.6 g/dL (3.5-5.0); ALT/SGPT 11 U/L (9-52); AST/SGOT 27 U/L (14-36); BLOOD UREA NITROGEN 12 mg/dL (7-17); CALCIUM 9.2 mg/dl (8.6-10.4); GFR NON-AFRICAN AMERICAN > 60
[2018-11-30] MEDS: (Novolin R) Insulin Human Regular 100 units/ml vial SC SCH ×5 (08:11→21:18)
[2018-11-30] MEDS: Oxycodone/Acetaminophen 5/325 mg Tab PO PRN (08:21)
[2018-11-30 08:29] LABS: INR 1.2
--- NOTE | 2018-11-30 08:53 | CP.PCM.PN ---
Subjective - Date & Time of Evaluation Date of Evaluation: 11/30/18 Time of Evaluation: 07:10 - Subjective Subjective: Endocrine Service Progress Note for Dr. Alford's Service Sae Serrano DO, IM PGY-3 Patient seen and examined at bedside on the floors. No acute events overnight as per nursing. As per patient, continues to have leg pain and neuropathic pain. Denies nausea, emesis, dizziness, lightheadedness. Yesterday evening, blood sugars were 70's-90's, but HS blood glucose check was 210. 85 this AM on fingerstick. Patient reports eating all meals and having appetite. Objective - Vital Signs/Intake and Output Vital Signs (last 24 hours): Temp Pulse Resp BP Pulse Ox 98.3 F 87 20 96/61 L 95 11/30/18 07:58 11/30/18 07:58 11/30/18 07:58 11/30/18 07:58 11/30/18 07:58 Intake and Output: 11/30/18 11/30/18 06:59 18:59 Intake Total 1250 Balance 1250 - Medications Medications: Current Medications Glipizide (Glucotrol) 5 mg PO ACBD [facility] Last Admin: 11/30/18 08:22 Dose: 5 mg Home Med (Patient's Own Medication) 1 tab PO DAILY [facility] Last Admin: 11/29/18 10:29 Dose: 1 tab Vancomycin HCl 1 gm/ Sodium (Chloride) 250 mls @ 166.7 mls/hr IVPB Q12H [facility]; Protocol Last Admin: 11/30/18 04:01 Dose: 166.7 mls/hr Piperacillin Sod/Tazobactam (Sod 3.375 gm/ Sodium Chloride) 100 mls @ 200 mls/hr IVPB Q8H [facility]; Protocol Last Admin: 11/30/18 02:04 Dose: 200 mls/hr Ibuprofen (Motrin Tab) 400 mg PO Q8 PRN PRN Reason: Pain, moderate (4-7) Last Admin: 11/27/18 02:48 Dose: 400 mg Insulin Human Regular (Novolin R) 0 unit SC ACHS [facility]; Protocol Last Admin: 11/30/18 08:11 Dose: Not Given Morphine Sulfate (Morphine) 1 mg IVP Q6 PRN PRN Reason: Pain, Mild (1-3) Oxycodone/Acetaminophen (Percocet 5/325 Mg Tab) 1 tab PO Q6H PRN PRN Reason: Pain, severe (8-10) Stop: 11/30/18 10:16 Last Admin: 11/30/18 08:21 Dose: 1 tab Pantoprazole Sodium (Protonix Ec Tab) 40 mg PO DAILY [facility] Last Admin: 11/29/18 10:23 Dose: 40 mg Prednisolone Acetate (Pred Forte 1% Opht Susp) 1 ml OS TID [facility] Last Admin: 11/29/18 17:19 Dose: 1 applic Sitagliptin Phosphate (Januvia) 100 mg PO DAILY [facility] Last Admin: 11/29/18 10:23 Dose: 100 mg - Labs Labs: 11/30/18 07:19 11/30/18 07:19 PT 13.0 SECONDS (9.7-12.2) H 11/30/18 07:19 INR 1.2 11/30/18 07:19 APTT 29 SECONDS (21-34) 11/30/18 07:19 - Constitutional Appears: Non-toxic, No Acute Distress - Head Exam Head Exam: ATRAUMATIC, NORMAL INSPECTION, NORMOCEPHALIC - Eye Exam Eye Exam: EOMI, Normal appearance. absent: Conjunctival injection, Scleral icterus Pupil Exam: absent: Irregular, Unequal - ENT Exam ENT Exam: Mucous Membranes Moist - Neck Exam Neck Exam: Normal Inspection. absent: Thyromegaly - Respiratory Exam Respiratory Exam: Clear to Ausculation Bilateral, NORMAL BREATHING PATTERN. absent: Accessory Muscle Use, Chest Wall Tenderness, Decreased Breath Sounds, Rales, Rhonchi, Wheezes - Cardiovascular Exam Cardiovascular Exam: REGULAR RHYTHM, RRR, +S1, +S2. absent: Bradycardia, Tachycardia, Irregular Rhythm, JVD, +S4 - GI/Abdominal Exam GI & Abdominal Exam: Soft, Normal Bowel Sounds. absent: Tenderness - Extremities Exam Extremities Exam: Tenderness (at and around site of bandaged RLE wound). absent: Pedal Edema - Neurological Exam Additional comments: awake and alert, moving all extremities spontaneously and on command, following all commands appropriately decreased sensation to touch at distal dorsal region of bilateral feet, reports complaint of burning sensation in bilateral LE - Psychiatric Exam Psychiatric exam: Normal Affect, Normal Mood - Skin Additional comments: bandaged RLE wound, otherwise dry/intact/warm Assessment and Plan - Assessment and Plan (Free Text) Assessment: This is a 48 year old female with PMH of DM2, HTN, multiple ulcers, and RA who presented for complaints of non-healing right leg ulcer. Endocrinology consultation was requested due to uncontrolled DM. Plan: 1) Uncontrolled DM2 with peripheral neuropathy 2) Nonhealing RLE ulceration 3) Hx of LE ulcers 4) HTN -Labile blood sugars in last 24 hrs, 70's-90's yesterday afternoon, 210 overnight, 85 this AM fingerstick Continue to monitor given labile blood sugars -Current regimen is jardiance 10mg daily, januvia 100mg daily, Glipizide 5mg ACBD, Insulin Low-ISS metformin stopped due to patient's weight loss with borderline low BMI -Pending OR debridement of foot ulcer tomorrow as per podiatry, abx as per ID Patient seen and examined, to be discussed with attending, Dr. Alford. Further recs as per attending.
--- NOTE | 2018-11-30 09:43 | CP.PCM.PN ---
Subjective - Date & Time of Evaluation Date of Evaluation: 11/30/18 Time of Evaluation: 09:43 - Subjective Subjective: Progress note dictated #[id number] Objective - Vital Signs/Intake and Output Vital Signs (last 24 hours): Temp Pulse Resp BP Pulse Ox 98.3 F 87 20 96/61 L 95 11/30/18 07:58 11/30/18 07:58 11/30/18 07:58 11/30/18 07:58 11/30/18 07:58 Intake and Output: 11/30/18 11/30/18 06:59 18:59 Intake Total 1250 Balance 1250 - Medications Medications: Current Medications Glipizide (Glucotrol) 5 mg PO ACBD [facility] Last Admin: 11/30/18 08:22 Dose: 5 mg Home Med (Patient's Own Medication) 1 tab PO DAILY [facility] Last Admin: 11/29/18 10:29 Dose: 1 tab Vancomycin HCl 1 gm/ Sodium (Chloride) 250 mls @ 166.7 mls/hr IVPB Q12H [facility]; Protocol Last Admin: 11/30/18 04:01 Dose: 166.7 mls/hr Piperacillin Sod/Tazobactam (Sod 3.375 gm/ Sodium Chloride) 100 mls @ 200 mls/hr IVPB Q8H [facility]; Protocol Last Admin: 11/30/18 02:04 Dose: 200 mls/hr Ibuprofen (Motrin Tab) 400 mg PO Q8 PRN PRN Reason: Pain, moderate (4-7) Last Admin: 11/27/18 02:48 Dose: 400 mg Insulin Human Regular (Novolin R) 0 unit SC ACHS [facility]; Protocol Last Admin: 11/30/18 08:11 Dose: Not Given Morphine Sulfate (Morphine) 1 mg IVP Q6 PRN PRN Reason: Pain, Mild (1-3) Oxycodone/Acetaminophen (Percocet 5/325 Mg Tab) 1 tab PO Q6H PRN PRN Reason: Pain, severe (8-10) Stop: 11/30/18 10:16 Last Admin: 11/30/18 08:21 Dose: 1 tab Pantoprazole Sodium (Protonix Ec Tab) 40 mg PO DAILY [facility] Last Admin: 11/29/18 10:23 Dose: 40 mg Prednisolone Acetate (Pred Forte 1% Opht Susp) 1 ml OS TID [facility] Last Admin: 11/29/18 17:19 Dose: 1 applic Sitagliptin Phosphate (Januvia) 100 mg PO DAILY [facility] Last Admin: 11/29/18 10:23 Dose: 100 mg - Labs Labs: 11/30/18 07:19 11/30/18 07:19 PT 13.0 SECONDS (9.7-12.2) H 11/30/18 07:19 INR 1.2 11/30/18 07:19 APTT 29 SECONDS (21-34) 11/30/18 07:19
[2018-11-30] MEDS: JARDIANCE 10MG PO SCH (10:56)
[2018-11-30] MEDS: Pantoprazole 40 mg EC Tab PO SCH (10:56)
[2018-11-30] MEDS: PrednisoLONE 1% Opht Susp(5 ml) OS SCH ×3 (11:13→21:25)
--- NOTE | 2018-11-30 11:43 | CP.PCM.PN ---
Subjective - Date & Time of Evaluation Date of Evaluation: 11/30/18 Time of Evaluation: 11:43 - Subjective Subjective: Podiatry Progress Note - Dr. Orta 48F seen and evaluated for right leg wound. No acute events overnight. Patient reports pain in right leg well controlled. Patient aware she will be scheduled for right leg wound debridement and biopsy. Denies n/v/f/d/c/sob/reza/cp. Objective - Vital Signs/Intake and Output Vital Signs (last 24 hours): Temp Pulse Resp BP Pulse Ox 98.3 F 87 20 96/61 L 95 11/30/18 07:58 11/30/18 07:58 11/30/18 07:58 11/30/18 07:58 11/30/18 07:58 Intake and Output: 11/30/18 11/30/18 06:59 18:59 Intake Total 1250 Balance 1250 - Medications Medications: Current Medications Glipizide (Glucotrol) 5 mg PO ACBD [facility] Last Admin: 11/30/18 08:22 Dose: 5 mg Home Med (Patient's Own Medication) 1 tab PO DAILY [facility] Last Admin: 11/30/18 10:56 Dose: 1 tab Vancomycin HCl 1 gm/ Sodium (Chloride) 250 mls @ 166.7 mls/hr IVPB Q12H [facility]; Protocol Last Admin: 11/30/18 04:01 Dose: 166.7 mls/hr Piperacillin Sod/Tazobactam (Sod 3.375 gm/ Sodium Chloride) 100 mls @ 200 mls/hr IVPB Q8H [facility]; Protocol Last Admin: 11/30/18 10:56 Dose: 200 mls/hr Ibuprofen (Motrin Tab) 400 mg PO Q8 PRN PRN Reason: Pain, moderate (4-7) Last Admin: 11/27/18 02:48 Dose: 400 mg Insulin Human Regular (Novolin R) 0 unit SC ACHS [facility]; Protocol Last Admin: 11/30/18 08:11 Dose: Not Given Morphine Sulfate (Morphine) 1 mg IVP Q6 PRN PRN Reason: Pain, Mild (1-3) Pantoprazole Sodium (Protonix Ec Tab) 40 mg PO DAILY [facility] Last Admin: 11/30/18 10:56 Dose: 40 mg Prednisolone Acetate (Pred Forte 1% Opht Susp) 1 ml OS TID [facility] Last Admin: 11/30/18 11:13 Dose: 1 applic Sitagliptin Phosphate (Januvia) 100 mg PO DAILY [facility] Last Admin: 11/30/18 10:56 Dose: 100 mg - Labs Labs: 11/30/18 07:19 11/30/18 07:19 PT 13.0 SECONDS (9.7-12.2) H 11/30/18 07:19 INR 1.2 11/30/18 07:19 APTT 29 SECONDS (21-34) 11/30/18 07:19 - Constitutional Appears: Non-toxic, No Acute Distress - Extremities Exam Additional comments: Right leg dressing clean/dry/intact with no strikethrough present - Neurological Exam Neurological Exam: Alert, Awake, Oriented x3 - Psychiatric Exam Psychiatric exam: Normal Affect, Normal Mood Assessment and Plan - Assessment and Plan (Free Text) Assessment: 48 year old female PMHx DM with right leg wound -Infectious vs. malignancy, possible pyoderma Plan: Patient seen and evaluated at bedside Discussed with attending, Dr. Orta Afebrile, WBC WNL 5.5 R leg wound culture: pseudomonas aeruginosa and staph epidermidis Mycobacterial culture pending Right leg fungal smear pending ID recs appreciated - may need fpc abx -Continue abx; vanc zosyn sensitive Continue local wound care every other day due to pain: xeroform, DSD WBAT bilateral LE Continue pain mgmt Podiatry plan: OR for debridement and biopsy of leg wound on Friday @ 1:30PM -Medical clearance obtained -Friday: NPO @ mn, hold heparin Podiatry will continue to follow
--- NOTE | 2018-11-30 23:34 | PN ---
DATE: 11/30/2018 SUBJECTIVE: The patient is seen and examined at bedside. The patient offers no new complaints. Denies any headache or dizziness. Denies any chest pain, shortness of breath, or wheezing. PHYSICAL EXAMINATION: GENERAL: Middle-aged female, lying in bed, in no acute distress. VITAL SIGNS: Blood pressure 102/67, pulse 77, respirations 20, temperature 97.3 degrees Fahrenheit, O2 saturations 95% on room air. HEENT: Pupils equal, round, and reacting to light and accommodation. Extraocular muscles intact. No icterus. No pallor. No oral thrush. No pharyngeal congestion. NECK: Supple. No JVD. LUNGS: Bilateral vesicular breath sounds. No wheezing. No rhonchi. CVS: S1 and S2 present and regular. ABDOMEN: Soft and nontender. Bowel sounds present. No guarding. No rigidity. No rebound tenderness noted. CENTRAL NERVOUS SYSTEM: Alert, awake, oriented x3. No focal deficits noted. EXTREMITIES: Right lower extremity with non-healing ulcer, dressing in place. MEDICATIONS: Include glipizide 5 mg p.o. b.i.d., Motrin as needed, morphine as needed, Protonix 40 mg daily, Zosyn 3.375 g IV every 8 hours, Januvia 100 mg daily, vancomycin 1 g IV every 12 hours. LABORATORY DATA: Labs done from this morning: WBC 5.5, hemoglobin 9.9, hematocrit 31.2, platelets 185. Sodium 136, potassium 3.8, chloride 104, bicarb 26, BUN 12, creatinine 0.5, glucose 85, calcium 9.2, phosphorous 3.7, magnesium 1.9. LFTs within normal limits. PT 13, INR 1.2, PTT 29. IMAGING: Chest x-ray negative for any infiltrate. EKG, normal sinus rhythm without any acute ST-T changes. ASSESSMENT AND PLAN: Middle-aged female with history of diabetes mellitus, rheumatoid arthritis, decreased vision in both eyes, admitted for right lower extremity nonhealing ulcer, had similar symptoms in the past. Wound cultures growing pseudomonas and Staphylococcus epidermidis, on Zosyn and vancomycin. We will continue with current medications. Accu-Cheks are fair on current regimen. I discussed with Podiatry resident. The patient is for possible wound debridement and biopsy in a.m. The patient is at acceptable risk for the scheduled procedure. We will continue with current antibiotics. We will follow up with Infectious Disease and Podiatry, and need social sciences department chair for discharge planning. May need to go to subacute rehab for possible long-term intravenous antibiotics. Yamil Horn MD
--- NOTE | 2018-12-01 01:03 | PN ---
DATE: 11/30/2018 ENDO FOLLOWUP NOTE LOCATION: Room 371. SUBJECTIVE: This is a 48-year-old female with recent uncontrolled type 2 diabetes with recent admission for right leg nonhealing neuropathic ulceration and is now being followed closely for metabolic management. LABORATORY DATA: Her glycemic levels are fluctuating but improved and the glucose levels overnight have ranged from 85 to 167 and 210 mg/dL. Her chemistry showed BUN of 12, sodium 136, potassium 3.8, chloride 104, CO2 of 26, glucose 92, and creatinine 0.5. ASSESSMENT AND PLAN: So, at this time, we will continue the triple oral hypoglycemic therapy given in combination with Januvia 100 mg daily and glipizide given as 5 mg b.i.d. before meals as ordered. We have actually discontinued the metformin given as 500 mg b.i.d. because of supervening variable oral intake with recent weight loss and also low normal glycemic profile over the last day or so as noted. We will obtain serial chemistries and supplement accordingly as needed. We will follow. Gwen Alford MD
[2018-12-01] MEDS: Piperacillin/Tazobact 3.375 GM in Sodium Chloride 100 ML IVPB SCH ×3 (01:57→18:34)
--- NOTE | 2018-12-01 07:03 | CP.PCM.PN ---
Subjective - Date & Time of Evaluation Date of Evaluation: 12/01/18 Time of Evaluation: 07:10 - Subjective Subjective: Endocrine Service Progress Note for Dr. Alford's Service Sae Serrano DO IM PGY-3 Patient seen and examined at bedside on the floors. No acute events overnight as per nursing. Still complaining of leg pain, especially at site of right leg ulcer but some present bilaterally as well. Explained that her neuropathy from her diabetes will continue to cause some discomfort even after debridement of her wound, and the only way to prevent worsening of her neuropathy is strict control of her diabetes. Pt expressed understanding. Pending OR tomorrow at 1pm, as per podiatry. Objective - Vital Signs/Intake and Output Vital Signs (last 24 hours): Temp Pulse Resp BP Pulse Ox 98.6 F 77 20 102/61 97 11/30/18 23:58 11/30/18 23:58 11/30/18 23:58 11/30/18 23:58 11/30/18 23:58 Intake and Output: 12/01/18 12/01/18 06:59 18:59 Intake Total 550 Balance 550 - Medications Medications: Current Medications Glipizide (Glucotrol) 5 mg PO ACBD [facility] Last Admin: 11/30/18 17:14 Dose: 5 mg Home Med (Patient's Own Medication) 1 tab PO DAILY [facility] Last Admin: 11/30/18 10:56 Dose: 1 tab Vancomycin HCl 1 gm/ Sodium (Chloride) 250 mls @ 166.7 mls/hr IVPB Q12H [facility]; Protocol Last Admin: 12/01/18 04:04 Dose: 166.7 mls/hr Piperacillin Sod/Tazobactam (Sod 3.375 gm/ Sodium Chloride) 100 mls @ 200 mls/hr IVPB Q8H [facility]; Protocol Last Admin: 12/01/18 01:57 Dose: 200 mls/hr Ibuprofen (Motrin Tab) 400 mg PO Q8 PRN PRN Reason: Pain, moderate (4-7) Last Admin: 11/27/18 02:48 Dose: 400 mg Insulin Human Regular (Novolin R) 0 unit SC ACHS [facility]; Protocol Last Admin: 11/30/18 21:18 Dose: Not Given Morphine Sulfate (Morphine) 1 mg IVP Q6 PRN PRN Reason: Pain, Mild (1-3) Last Admin: 11/30/18 17:14 Dose: 1 mg Pantoprazole Sodium (Protonix Ec Tab) 40 mg PO DAILY [facility] Last Admin: 11/30/18 10:56 Dose: 40 mg Prednisolone Acetate (Pred Forte 1% Opht Susp) 1 ml OS TID [facility] Last Admin: 11/30/18 21:25 Dose: 1 applic Sitagliptin Phosphate (Januvia) 100 mg PO DAILY [facility] Last Admin: 11/30/18 10:56 Dose: 100 mg - Labs Labs: 11/30/18 07:19 11/30/18 07:19 PT 13.0 SECONDS (9.7-12.2) H 11/30/18 07:19 INR 1.2 11/30/18 07:19 APTT 29 SECONDS (21-34) 11/30/18 07:19 - Additional Findings Additional findings: - Constitutional Appears: Non-toxic, No Acute Distress - Head Exam Head Exam: ATRAUMATIC, NORMAL INSPECTION, NORMOCEPHALIC - Eye Exam Eye Exam: EOMI, Normal appearance. absent: Conjunctival injection, Scleral icterus Pupil Exam: absent: Irregular, Unequal - ENT Exam ENT Exam: Mucous Membranes Moist - Neck Exam Neck Exam: Normal Inspection. absent: Thyromegaly - Respiratory Exam Respiratory Exam: Clear to Ausculation Bilateral, NORMAL BREATHING PATTERN. absent: Accessory Muscle Use, Chest Wall Tenderness, Decreased Breath Sounds, Rales, Rhonchi, Wheezes - Cardiovascular Exam Cardiovascular Exam: REGULAR RHYTHM, RRR, +S1, +S2. absent: Bradycardia, Tachycardia, Irregular Rhythm, JVD, +S4 - GI/Abdominal Exam GI & Abdominal Exam: Soft, Normal Bowel Sounds. absent: Tenderness - Extremities Exam Extremities Exam: Tenderness (at and around site of bandaged RLE wound), bandaging around RLE at/adjacent to R ankle. absent: Pedal Edema - Neurological Exam Additional comments: awake and alert, moving all extremities spontaneously and on command, following all commands appropriately decreased sensation to touch at distal dorsal region of bilateral feet, reports complaint of burning sensation in bilateral LE - Psychiatric Exam Psychiatric exam: Normal Affect, Normal Mood - Skin bandaged RLE wound, otherwise dry/intact/warm Assessment and Plan - Assessment and Plan (Free Text) Assessment: This is a 48 year old female with PMH of DM2, HTN, multiple ulcers, and RA who presented for complaints of non-healing right leg ulcer. Endocrinology consultation was requested due to uncontrolled DM. Plan: 1) Uncontrolled DM2 with peripheral neuropathy 2) Nonhealing RLE ulceration 3) Hx of LE ulcers 4) HTN -Labile blood sugars in last 24 hrs, 85 to 238, was 130 this AM Continue to monitor given labile blood sugars May be component 2/2 infectious process, abx as per ID -Current regimen is jardiance 10mg daily, januvia 100mg daily, Glipizide 5mg ACBD, Insulin Low-ISS metformin stopped due to patient's weight loss with borderline low BMI -Pending OR debridement of foot ulcer tomorrow as per podiatry Patient seen and examined, to be discussed with attending, Dr. Alford. Further recs as per attending.
[2018-12-01] MEDS: (Novolin R) Insulin Human Regular 100 units/ml vial SC SCH ×4 (07:32→22:19)
--- NOTE | 2018-12-01 10:12 | CP.PCM.PN ---
Subjective - Date & Time of Evaluation Date of Evaluation: 12/01/18 Time of Evaluation: 10:00 - Subjective Subjective: Progress note dictated #[id number] Objective - Vital Signs/Intake and Output Vital Signs (last 24 hours): Temp Pulse Resp BP Pulse Ox 97.8 F 76 20 108/69 96 12/01/18 07:00 12/01/18 07:00 12/01/18 07:00 12/01/18 07:00 12/01/18 07:00 Intake and Output: 12/01/18 12/01/18 06:59 18:59 Intake Total 550 Balance 550 - Medications Medications: Current Medications Glipizide (Glucotrol) 5 mg PO ACBD [facility] Last Admin: 12/01/18 07:51 Dose: 5 mg Home Med (Patient's Own Medication) 1 tab PO DAILY [facility] Last Admin: 11/30/18 10:56 Dose: 1 tab Vancomycin HCl 1 gm/ Sodium (Chloride) 250 mls @ 166.7 mls/hr IVPB Q12H [facility]; Protocol Last Admin: 12/01/18 04:04 Dose: 166.7 mls/hr Piperacillin Sod/Tazobactam (Sod 3.375 gm/ Sodium Chloride) 100 mls @ 200 mls/hr IVPB Q8H [facility]; Protocol Last Admin: 12/01/18 01:57 Dose: 200 mls/hr Ibuprofen (Motrin Tab) 400 mg PO Q8 PRN PRN Reason: Pain, moderate (4-7) Last Admin: 11/27/18 02:48 Dose: 400 mg Insulin Human Regular (Novolin R) 0 unit SC ACHS [facility]; Protocol Last Admin: 12/01/18 07:32 Dose: Not Given Morphine Sulfate (Morphine) 1 mg IVP Q6 PRN PRN Reason: Pain, Mild (1-3) Last Admin: 12/01/18 07:50 Dose: 1 mg Pantoprazole Sodium (Protonix Ec Tab) 40 mg PO DAILY [facility] Last Admin: 11/30/18 10:56 Dose: 40 mg Prednisolone Acetate (Pred Forte 1% Opht Susp) 1 ml OS TID [facility] Last Admin: 11/30/18 21:25 Dose: 1 applic Sitagliptin Phosphate (Januvia) 100 mg PO DAILY [facility] Last Admin: 11/30/18 10:56 Dose: 100 mg - Labs Labs: 11/30/18 07:19 11/30/18 07:19 PT 13.0 SECONDS (9.7-12.2) H 11/30/18 07:19 INR 1.2 11/30/18 07:19 APTT 29 SECONDS (21-34) 11/30/18 07:19
[2018-12-01] MEDS ORDERED: Oxycodone/Acetaminophen 5/325 mg Tab PO ONE (10:30)
[2018-12-01] MEDS: Pantoprazole 40 mg EC Tab PO SCH (10:56)
[2018-12-01] MEDS: JARDIANCE 10MG PO SCH ×2 (10:56→11:30)
[2018-12-01] MEDS: PrednisoLONE 1% Opht Susp(5 ml) OS SCH ×3 (11:00→17:04)
[2018-12-01] MEDS: Oxycodone/Acetaminophen 5/325 mg Tab PO PRN (18:35)
--- NOTE | 2018-12-01 19:33 | PN ---
DATE: 12/01/2018 ENDOCRINOLOGY FOLLOWUP NOTE LOCATION: Room 371. SUBJECTIVE: This is a 48-year-old female with recent right lower extremity cellulitis, non-healing neuropathic ulceration and is now being followed closely for metabolic management. LABORATORY DATA: Her glycemic levels are fluctuating but improved with the range from 130 to 240 mg/dL. The chemistry showed a BUN of 20, sodium 136, potassium 3.3, chloride 104, CO2 26, glucose 92, and creatinine 0.5. ASSESSMENT AND PLAN: So at this time, we will continue the same oral hypoglycemic therapy as given with Januvia given 100 mg daily and we will titrate the glipizide to 10 mg b.i.d. before breakfast and dinner as ordered. We will obtain serial chemistries and supplement accordingly. We will follow. Gwen Alford MD
[2018-12-02] MEDS: Piperacillin/Tazobact 3.375 GM in Sodium Chloride 100 ML IVPB SCH ×3 (01:59→20:06)
--- NOTE | 2018-12-02 06:14 | PN ---
DATE: 12/01/2018 SUBJECTIVE: The patient is seen and examined at bedside. The patient offers no new complaints, other than . PHYSICAL EXAMINATION: GENERAL: Middle-aged female, lying in bed, in no acute distress. VITAL SIGNS: Blood pressure 108/69, pulse 76, respirations 20, temperature 97.3 degrees Fahrenheit, O2 saturations 96% on room air. HEENT: Pupils equal, round, and reacting to light and accommodation. Extraocular muscles intact. No icterus. No pallor. No oral thrush. No pharyngeal congestion. NECK: Supple. No JVD. LUNGS: Bilateral vesicular breath sounds. No wheezing. No rhonchi. CARDIOVASCULAR: S1 and S2 present and regular. ABDOMEN: Soft and nontender. Bowel sounds present. No guarding. No rigidity. No rebound tenderness noted. CENTRAL NERVOUS SYSTEM: Alert, awake, oriented x3. No focal deficits noted. EXTREMITIES: Right lower extremity with non-healing ulcer, dressing in place. MEDICATIONS: Include glipizide 5 mg twice daily, ibuprofen as needed, Motrin as needed, Protonix 40 mg daily, Zosyn 3.375 g intravenous every 8 hours, Januvia 100 mg daily, vancomycin 1 g intravenous every 12 hours. LABORATORY DATA: Accu-Chek 157, 173, 238 and 130. ASSESSMENT AND PLAN: Middle-aged female with history of ____ diabetes mellitus, right lower extremity with nonhealing ulcer, wound cultures growing pseudomonas gram on vancomycin and Zosyn. The patient reports bronchial . We will continue with wound care and current antibiotics and continue with current hypoglycemic agents. The patient may need antibiotics and subacute rehab placement. Will follow up with social work administrator. Yamil Horn MD
[2018-12-02] MEDS: Oxycodone/Acetaminophen 5/325 mg Tab PO PRN (07:29)
--- NOTE | 2018-12-02 07:35 | CP.PCM.PN ---
Subjective - Date & Time of Evaluation Date of Evaluation: 12/02/18 Time of Evaluation: 07:10 - Subjective Subjective: Endocrine Service Progress Note for Dr. Alford's Service Sae Serrano DO, IM PGY-3 Patient seen and examined at bedside on the floors. No acute events overnight. Still complaining of leg pain, especially at site of right leg ulcer but some present bilaterally as well. Still expressing some confusion over neuropathy pain vs ulcer pain, as well as confusion regarding role of diabetes in her leg ulcers; re-educated on both. Pt expressed understanding. Pending OR today, NPO pending procedure. Will monitor blood glucose levels whil e NPO. Objective - Vital Signs/Intake and Output Vital Signs (last 24 hours): Temp Pulse Resp BP Pulse Ox 97.6 F 78 20 100/66 96 12/02/18 00:00 12/02/18 00:00 12/02/18 00:00 12/02/18 00:00 12/02/18 00:00 Intake and Output: 12/02/18 12/02/18 06:59 18:59 Intake Total 700 Balance 700 - Medications Medications: Current Medications Glipizide (Glucotrol) 10 mg PO ACBD [facility] Last Admin: 12/01/18 18:14 Dose: Not Given Home Med (Patient's Own Medication) 1 tab PO DAILY [facility] Last Admin: 12/01/18 11:30 Dose: 1 tab Vancomycin HCl 1 gm/ Sodium (Chloride) 250 mls @ 166.7 mls/hr IVPB Q12H [facility]; Protocol Last Admin: 12/02/18 03:25 Dose: 166.7 mls/hr Piperacillin Sod/Tazobactam (Sod 3.375 gm/ Sodium Chloride) 100 mls @ 200 mls/hr IVPB Q8H [facility]; Protocol Last Admin: 12/02/18 01:59 Dose: 200 mls/hr Ibuprofen (Motrin Tab) 400 mg PO Q8 PRN PRN Reason: Pain, moderate (4-7) Last Admin: 11/27/18 02:48 Dose: 400 mg Insulin Human Regular (Novolin R) 0 unit SC ACHS [facility]; Protocol Last Admin: 12/01/18 22:19 Dose: Not Given Morphine Sulfate (Morphine) 1 mg IVP Q6 PRN PRN Reason: Pain, Mild (1-3) Last Admin: 12/01/18 07:50 Dose: 1 mg Oxycodone/Acetaminophen (Percocet 5/325 Mg Tab) 1 tab PO Q6H PRN PRN Reason: Pain, moderate (4-7) Stop: 12/04/18 10:22 Last Admin: 12/02/18 07:29 Dose: 1 tab Pantoprazole Sodium (Protonix Ec Tab) 40 mg PO DAILY [facility] Last Admin: 12/01/18 10:56 Dose: 40 mg Prednisolone Acetate (Pred Forte 1% Opht Susp) 1 ml OS TID [facility] Last Admin: 12/01/18 17:04 Dose: 1 applic Sitagliptin Phosphate (Januvia) 100 mg PO DAILY [facility] Last Admin: 12/01/18 10:55 Dose: 100 mg - Labs Labs: 11/30/18 07:19 11/30/18 07:19 PT 13.0 SECONDS (9.7-12.2) H 11/30/18 07:19 INR 1.2 11/30/18 07:19 APTT 29 SECONDS (21-34) 11/30/18 07:19 - Additional Findings Additional findings: - Constitutional Appears: Non-toxic, No Acute Distress - Head Exam Head Exam: ATRAUMATIC, NORMAL INSPECTION, NORMOCEPHALIC - Eye Exam Eye Exam: EOMI, Normal appearance. absent: Conjunctival injection, Scleral icterus Pupil Exam: absent: Irregular, Unequal - ENT Exam ENT Exam: Mucous Membranes Moist - Neck Exam Neck Exam: Normal Inspection. absent: Thyromegaly - Respiratory Exam Respiratory Exam: Clear to Ausculation Bilateral, NORMAL BREATHING PATTERN. absent: Accessory Muscle Use, Chest Wall Tenderness, Decreased Breath Sounds, Rales, Rhonchi, Wheezes - Cardiovascular Exam Cardiovascular Exam: REGULAR RHYTHM, RRR, +S1, +S2. absent: Bradycardia, Tachycardia, Irregular Rhythm, JVD, +S4 - GI/Abdominal Exam GI & Abdominal Exam: Soft, Normal Bowel Sounds. absent: Tenderness - Extremities Exam Extremities Exam: Tenderness with palpation at/around site of bandaged RLE wound, bandaging around RLE at/adjacent to R ankle, reports more pain further from ulcer site today but not elicitable/exacerbated by palpation. absent: Pedal Edema - Neurological Exam Additional comments: awake and alert, moving all extremities spontaneously and on command, following all commands appropriately decreased sensation to touch at distal dorsal region of bilateral feet, reports complaint of burning sensation in bilateral LE Likely worsened neuropathic pain around RLE wound today - Psychiatric Exam Psychiatric exam: Normal Affect, Normal Mood - Skin bandaged RLE wound, otherwise dry/intact/warm Assessment and Plan - Assessment and Plan (Free Text) Assessment: This is a 48 year old female with PMH of DM2, HTN, multiple ulcers, and RA who presented for complaints of non-healing right leg ulcer. Endocrinology consultation was requested due to uncontrolled DM. Plan: 1) Uncontrolled DM2 with peripheral neuropathy 2) Nonhealing RLE ulceration 3) Hx of LE ulcers 4) HTN -Labile blood sugars in last 24 hrs, 82 to 214, was 146 this AM Continue to monitor given labile blood sugars, likely some risk of running low today given NPO prior to OR May be component 2/2 infectious process, abx as per ID -Current regimen is jardiance 10mg daily, januvia 100mg daily, Glipizide 5mg ACBD, Insulin Low-ISS; will continue -Pending OR debridement of foot ulcer tomorrow as per podiatry Patient seen and examined, to be discussed with attending, Dr. Alford. Further recs as per attending.
[2018-12-02] MEDS: (Novolin R) Insulin Human Regular 100 units/ml vial SC SCH ×4 (07:55→22:00)
--- NOTE | 2018-12-02 09:20 | CP.PCM.PN ---
Subjective - Date & Time of Evaluation Date of Evaluation: 12/01/18 Time of Evaluation: 17:00 - Subjective Subjective: Podiatry Progress Note - Dr. Orta 48F seen and evaluated for right leg wound. No acute events overnight. Patient reports pain in right leg well controlled. Patient aware she will be scheduled for right leg wound debridement and biopsy tomorrow afternoon, and must be NPO @ [place]. Denies n/v/f/d/c/sob/reza/cp. Objective - Vital Signs/Intake and Output Vital Signs (last 24 hours): Temp Pulse Resp BP Pulse Ox 98 F 77 20 95/66 L 99 12/02/18 07:47 12/02/18 07:47 12/02/18 07:47 12/02/18 07:47 12/02/18 07:47 Intake and Output: 12/02/18 12/02/18 06:59 18:59 Intake Total 700 300 Balance 700 300 - Medications Medications: Current Medications Glipizide (Glucotrol) 10 mg PO ACBD [facility] Last Admin: 12/02/18 07:55 Dose: Not Given Home Med (Patient's Own Medication) 1 tab PO DAILY [facility] Last Admin: 12/01/18 11:30 Dose: 1 tab Vancomycin HCl 1 gm/ Sodium (Chloride) 250 mls @ 166.7 mls/hr IVPB Q12H [facility]; Protocol Last Admin: 12/02/18 03:25 Dose: 166.7 mls/hr Piperacillin Sod/Tazobactam (Sod 3.375 gm/ Sodium Chloride) 100 mls @ 200 mls/hr IVPB Q8H [facility]; Protocol Last Admin: 12/02/18 01:59 Dose: 200 mls/hr Ibuprofen (Motrin Tab) 400 mg PO Q8 PRN PRN Reason: Pain, moderate (4-7) Last Admin: 11/27/18 02:48 Dose: 400 mg Insulin Human Regular (Novolin R) 0 unit SC ACHS [facility]; Protocol Last Admin: 12/02/18 07:55 Dose: Not Given Morphine Sulfate (Morphine) 1 mg IVP Q6 PRN PRN Reason: Pain, Mild (1-3) Last Admin: 12/01/18 07:50 Dose: 1 mg Oxycodone/Acetaminophen (Percocet 5/325 Mg Tab) 1 tab PO Q6H PRN PRN Reason: Pain, moderate (4-7) Stop: 12/04/18 10:22 Last Admin: 12/02/18 07:29 Dose: 1 tab Pantoprazole Sodium (Protonix Ec Tab) 40 mg PO DAILY [facility] Last Admin: 12/01/18 10:56 Dose: 40 mg Prednisolone Acetate (Pred Forte 1% Opht Susp) 1 ml OS TID [facility] Last Admin: 12/01/18 17:04 Dose: 1 applic Sitagliptin Phosphate (Januvia) 100 mg PO DAILY [facility] Last Admin: 12/01/18 10:55 Dose: 100 mg - Labs Labs: 11/30/18 07:19 11/30/18 07:19 PT 13.0 SECONDS (9.7-12.2) H 11/30/18 07:19 INR 1.2 11/30/18 07:19 APTT 29 SECONDS (21-34) 11/30/18 07:19 - Extremities Exam Additional comments: RLE focused VASC: DP and PT pulses weakly palpable 1/4. CFT <3 seconds to all digits. Temperature gradient warm to warm b/l. No increase in warmth noted periwound. NEURO: Gross sensation intact. DERM: Raised Wound measuring approximately 7 x 15 x 0.1 cm noted to right lower leg just proximal to ankle joint encompassing 75% of leg circumference. Wound is 50% fibrotic and 50% granular with rolled edges periwound; serosanguinous drainage present; no purulence; no fluctuance; no malodor. ORTHO: Severe pain on palpation to right leg wound. - Neurological Exam Neurological Exam: Alert, Awake, Oriented x3 - Psychiatric Exam Psychiatric exam: Anxious Assessment and Plan - Assessment and Plan (Free Text) Assessment: 48 year old female PMHx DM with right leg wound -Infectious vs. malignancy, possible pyoderma Plan: Patient seen and evaluated at bedside Discussed with attending, Dr. Orta Afebkatt R leg wound culture: pseudomonas aeruginosa and staph epidermidis Mycobacterial culture pending Acid-fast bacilli stain - negative Right leg fungal smear - negative ID recs appreciated - may need medical terminologist abx -Continue abx; vanc zosyn sensitive Continue local wound care every other day due to pain: xeroform, DSD WBAT bilateral LE Continue pain mgmt Podiatry plan: OR for debridement and biopsy of leg wound tomorrow, Friday @ 1:30PM -Medical clearance obtained -Friday: NPO @ [place], hold heparin Podiatry will continue to follow
[2018-12-02] MEDS: JARDIANCE 10MG PO SCH (09:37)
[2018-12-02] MEDS: Pantoprazole 40 mg EC Tab PO SCH (09:37)
[2018-12-02] MEDS: PrednisoLONE 1% Opht Susp(5 ml) OS SCH ×3 (09:39→19:02)
[2018-12-02] MEDS ORDERED: Bupivacaine HCl 0.5% PF (10 ml) Inj ONE ×2 (13:17→14:47)
[2018-12-02] MEDS ORDERED: Lidocaine 2% MPF (5 ml) Inj ONE (13:18)
[2018-12-02] MEDS ORDERED: Midazolam 2 MG/2 ML VIAL ONE (13:43)
[2018-12-02] MEDS ORDERED: Propofol 10 mg/ml Inj (20 ML) ONE (13:43)
[2018-12-02] MEDS ORDERED: Ropivacaine 0.5% PF (20 ml) inj INJ ONE (14:25)
--- NOTE | 2018-12-02 14:40 | PCM.SURG1 ---
Surgeon's Initial Post Op Note - Surgeon's Notes Surgeon: Dr. Orta Director Payment: Bruna Plasencia PGy1, Mike Pitt PGY2 Type of Anesthesia: General LMA, Local Anesthesia Administered By: Dr. Mccray Pre-Operative Diagnosis: right leg nonhealing ulcer Operative Findings: see dictation. injectibles: popliteal/adductor canal block by anesthesiologist post-op Post-Operative Diagnosis: same Operation Performed: right lower leg ulcer biopsy and debridement with the use of versajet. Specimen/Specimens Removed: five= full thickness biopsy taken from separate sites of the ulcer Estimated Blood Loss: EBL {In ML}: 30 Blood Products Given: N/A Drains Used: No Drains Post-Op Condition: Good Date of Surgery/Procedure: 12/02/18 Time of Surgery/Procedure: 14:41
[2018-12-02] MEDS ORDERED: Oxycodone/Acetaminophen 5/325 mg Tab PO PRN (14:42)
[2018-12-02] MEDS ORDERED: HYDROmorphone 0.5 mg/0.5 ml ISec ONE (14:43)
[2018-12-02] MEDS ORDERED: Sodium Chloride 0.9% 20 ML IV ONE (14:44)
[2018-12-02] MEDS ORDERED: HYDROmorphone 0.5 mg/0.5 ml ISec IVP PRN (14:46)
--- NOTE | 2018-12-02 16:12 | CP.PCM.PN ---
Subjective - Date & Time of Evaluation Date of Evaluation: 12/02/18 Time of Evaluation: 09:00 - Subjective Subjective: s/p bx/ debridement Objective - Vital Signs/Intake and Output Vital Signs (last 24 hours): Temp Pulse Resp BP Pulse Ox 98.2 F 92 H 14 116/65 100 12/02/18 15:45 12/02/18 15:45 12/02/18 15:45 12/02/18 15:45 12/02/18 15:45 Intake and Output: 12/02/18 12/02/18 06:59 18:59 Intake Total 700 1100 Balance 700 1100 - Medications Medications: Current Medications Acetaminophen (Tylenol 325mg Tab) 650 mg PO Q6 PRN PRN Reason: Pain, Mild (1-3) Glipizide (Glucotrol) 10 mg PO ACBD [facility] Last Admin: 12/02/18 07:55 Dose: Not Given Home Med (Patient's Own Medication) 1 tab PO DAILY [facility] Last Admin: 12/02/18 09:37 Dose: Not Given Hydromorphone HCl (Dilaudid) 0.5 mg IVP Q10M PRN PRN Reason: Pain, moderate (4-7) Stop: 12/02/18 16:46 Last Admin: 12/02/18 14:50 Dose: 0.5 mg Vancomycin HCl 1 gm/ Sodium (Chloride) 250 mls @ 166.7 mls/hr IVPB Q12H [facility]; Protocol Last Admin: 12/02/18 03:25 Dose: 166.7 mls/hr Piperacillin Sod/Tazobactam (Sod 3.375 gm/ Sodium Chloride) 100 mls @ 200 mls/hr IVPB Q8H [facility]; Protocol Last Admin: 12/02/18 09:58 Dose: 200 mls/hr Lactated Ringer's (Lactated Ringer's) 1,000 mls @ 100 mls/hr IV .Q10H [facility] Ibuprofen (Motrin Tab) 400 mg PO Q8 PRN PRN Reason: Pain, moderate (4-7) Last Admin: 11/27/18 02:48 Dose: 400 mg Insulin Human Regular (Novolin R) 0 unit SC ACHS [facility]; Protocol Last Admin: 12/02/18 11:35 Dose: Not Given Ondansetron HCl (Zofran Inj) 4 mg IVP ONCE PRN PRN Reason: Nausea/Vomiting Stop: 12/02/18 16:47 Oxycodone/Acetaminophen (Percocet 5/325 Mg Tab) 1 tab PO Q6H PRN PRN Reason: Pain, moderate (4-7) Stop: 12/04/18 10:22 Last Admin: 12/02/18 07:29 Dose: 1 tab Oxycodone/Acetaminophen (Percocet 5/325 Mg Tab) 1 tab PO Q6H PRN PRN Reason: Pain, moderate (4-7) Stop: 12/05/18 14:43 Oxycodone/Acetaminophen (Percocet 5/325 Mg Tab) 2 tab PO Q6H PRN PRN Reason: Pain, severe (8-10) Stop: 12/05/18 14:43 Pantoprazole Sodium (Protonix Ec Tab) 40 mg PO DAILY [facility] Last Admin: 12/02/18 09:37 Dose: Not Given Prednisolone Acetate (Pred Forte 1% Opht Susp) 1 ml OS TID [facility] Last Admin: 12/02/18 13:16 Dose: Not Given Sitagliptin Phosphate (Januvia) 100 mg PO DAILY [facility] Last Admin: 12/02/18 09:37 Dose: Not Given - Labs Labs: 11/30/18 07:19 11/30/18 07:19 PT 13.0 SECONDS (9.7-12.2) H 11/30/18 07:19 INR 1.2 11/30/18 07:19 APTT 29 SECONDS (21-34) 11/30/18 07:19 - Constitutional Appears: No Acute Distress, Chronically Ill - Head Exam Head Exam: ATRAUMATIC, NORMAL INSPECTION, NORMOCEPHALIC - Eye Exam Eye Exam: EOMI, Normal appearance, PERRL Pupil Exam: NORMAL ACCOMODATION, PERRL - ENT Exam ENT Exam: Mucous Membranes Moist, Normal Exam - Neck Exam Neck Exam: Full ROM, Normal Inspection. absent: Lymphadenopathy - Respiratory Exam Respiratory Exam: Clear to Ausculation Bilateral, NORMAL BREATHING PATTERN - Cardiovascular Exam Cardiovascular Exam: REGULAR RHYTHM, +S1, +S2. absent: Murmur - GI/Abdominal Exam GI & Abdominal Exam: Soft, Normal Bowel Sounds. absent: Tenderness - Rectal Exam Rectal Exam: Deferred - Exam Speculum exam: NORMAL SPECULUM EXAM - Extremities Exam Extremities Exam: absent: Joint Swelling, Pedal Edema - Back Exam Back Exam: NORMAL INSPECTION - Neurological Exam Neurological Exam: Alert, Awake, CN II-XII Intact, Normal Gait, Oriented x3 - Psychiatric Exam Psychiatric exam: Normal Affect, Normal Mood - Skin Skin Exam: Dry, Intact, Normal Color, Warm Assessment and Plan (1) Abscess of right lower extremity excluding foot Status: Acute (2) Diabetes mellitus type 2 in nonobese Status: Acute - Assessment and Plan (Free Text) Assessment: cont iv rx and wound care await Bx/OR cultures
[2018-12-02] MEDS: Lactated Ringer's 1,000 ML IV SCH (17:48)
--- NOTE | 2018-12-02 18:37 | CP.PCM.PN ---
Subjective - Date & Time of Evaluation Date of Evaluation: 12/02/18 Time of Evaluation: 18:37 - Subjective Subjective: Progress note dictated # [id number] Objective - Vital Signs/Intake and Output Vital Signs (last 24 hours): Temp Pulse Resp BP Pulse Ox 97.7 F 73 20 113/75 100 12/02/18 16:28 12/02/18 16:28 12/02/18 16:28 12/02/18 16:28 12/02/18 16:28 Intake and Output: 12/02/18 12/02/18 06:59 18:59 Intake Total 700 1100 Balance 700 1100 - Medications Medications: Current Medications Acetaminophen (Tylenol 325mg Tab) 650 mg PO Q6 PRN PRN Reason: Pain, Mild (1-3) Glipizide (Glucotrol) 10 mg PO ACBD [facility] Last Admin: 12/02/18 17:45 Dose: Not Given Home Med (Patient's Own Medication) 1 tab PO DAILY [facility] Last Admin: 12/02/18 09:37 Dose: Not Given Vancomycin HCl 1 gm/ Sodium (Chloride) 250 mls @ 166.7 mls/hr IVPB Q12H [facility]; Protocol Last Admin: 12/02/18 03:25 Dose: 166.7 mls/hr Piperacillin Sod/Tazobactam (Sod 3.375 gm/ Sodium Chloride) 100 mls @ 200 mls/hr IVPB Q8H [facility]; Protocol Last Admin: 12/02/18 09:58 Dose: 200 mls/hr Lactated Ringer's (Lactated Ringer's) 1,000 mls @ 100 mls/hr IV .Q10H [facility] Last Admin: 12/02/18 17:48 Dose: 100 mls/hr Ibuprofen (Motrin Tab) 400 mg PO Q8 PRN PRN Reason: Pain, moderate (4-7) Last Admin: 11/27/18 02:48 Dose: 400 mg Insulin Human Regular (Novolin R) 0 unit SC [facility]; Protocol Last Admin: 12/02/18 11:35 Dose: Not Given Oxycodone/Acetaminophen (Percocet 5/325 Mg Tab) 1 tab PO Q6H PRN PRN Reason: Pain, moderate (4-7) Stop: 12/04/18 10:22 Last Admin: 12/02/18 07:29 Dose: 1 tab Oxycodone/Acetaminophen (Percocet 5/325 Mg Tab) 1 tab PO Q6H PRN PRN Reason: Pain, moderate (4-7) Stop: 12/05/18 14:43 Oxycodone/Acetaminophen (Percocet 5/325 Mg Tab) 2 tab PO Q6H PRN PRN Reason: Pain, severe (8-10) Stop: 12/05/18 14:43 Pantoprazole Sodium (Protonix Ec Tab) 40 mg PO DAILY [facility] Last Admin: 12/02/18 09:37 Dose: Not Given Prednisolone Acetate (Pred Forte 1% Opht Susp) 1 ml OS TID [facility] Last Admin: 12/02/18 13:16 Dose: Not Given Sitagliptin Phosphate (Januvia) 100 mg PO DAILY [facility] Last Admin: 12/02/18 09:37 Dose: Not Given - Labs Labs: 11/30/18 07:19 11/30/18 07:19 PT 13.0 SECONDS (9.7-12.2) H 11/30/18 07:19 INR 1.2 11/30/18 07:19 APTT 29 SECONDS (21-34) 11/30/18 07:19
--- NOTE | 2018-12-02 21:11 | PN ---
DATE: 12/02/2018 ENDOCRINOLOGY FOLLOWUP NOTE LOCATION: Room 371. SUBJECTIVE: This is a 48-year-old female with recent uncontrolled type 2 insulin-requiring diabetes, presenting here with a nonhealing right leg neuropathic ulceration and underwent today a local debridement and biopsy procedure as noted otherwise. Her glycemic levels are fluctuating but improved, and the glucose levels have ranged from 101 to 146 and 148 mg/dL. LABORATORY DATA: Her chemistry showed a BUN of 12, sodium 136, potassium 3.8, chloride 104, CO2 of 26, glucose 92 and creatinine 0.5. PLAN OF MANAGEMENT: So at this time, we will continue and resume the oral hypoglycemic drug therapy given in combination with glipizide at 10 mg b.i.d. before meals and Januvia at 100 mg once daily as ordered. We will obtain serial chemistries and supplement accordingly as needed. We will follow. Gwen Alford MD
[2018-12-03] MEDS: Lactated Ringer's 1,000 ML IV SCH ×3 (00:45→14:07)
[2018-12-03] MEDS: Piperacillin/Tazobact 3.375 GM in Sodium Chloride 100 ML IVPB SCH ×3 (02:03→18:44)
--- NOTE | 2018-12-03 02:36 | PN ---
DATE: 12/02/2018 SUBJECTIVE: The patient offers no new complaints other than right lower extremity pain. The patient underwent debridement this afternoon. PHYSICAL EXAMINATION: GENERAL: Middle-aged female, lying in bed, in no acute distress. VITAL SIGNS: Blood pressure 113/75, pulse 73, respirations 20, temperature 97.7 degrees Fahrenheit, O2 saturations 100% on room air. HEENT: Pupils equal, round, and reacting to light and accommodation. Extraocular muscles intact. No icterus. No pallor. NECK: Supple. No JVD. LUNGS: Bilateral vesicular breath sounds. No wheezing. No rhonchi. CARDIOVASCULAR: S1 and S2 present and regular. ABDOMEN: Soft and nontender. Bowel sounds present. No guarding. No rigidity. No rebound tenderness noted. CENTRAL NERVOUS SYSTEM: Alert, awake, oriented x3. No focal deficits noted. EXTREMITIES: Right lower extremity with dressing in place. MEDICATIONS: Include Tylenol as needed, glipizide 10 mg p.o. b.i.d., Jardiance, Percocet as needed, Zosyn 3.375 g intravenous every 8 hours, Januvia 100 mg daily, vancomycin 1 g intravenous every 12 hours. ASSESSMENT AND PLAN: Middle-aged female with history of diabetes mellitus, right lower extremity nonhealing ulcer with pseudomonas and Staphylococcus epidermidis is growing in the wound culture, underwent wound debridement and biopsy this afternoon. Continue with current antibiotics, Zosyn and vancomycin. We will continue with current pain medication. We will follow up with the biopsy results. Yamil Horn MD
[2018-12-03] MEDS: Oxycodone/Acetaminophen 5/325 mg Tab PO PRN ×3 (04:45→21:40)
[2018-12-03] MEDS: (Novolin R) Insulin Human Regular 100 units/ml vial SC SCH ×4 (07:36→22:00)
--- NOTE | 2018-12-03 09:22 | CP.PCM.PN ---
Subjective - Date & Time of Evaluation Date of Evaluation: 12/03/18 Time of Evaluation: 07:00 - Subjective Subjective: Endocrine Service Progress Note for Dr. Alford's Service Sae Serrano DO, IM PGY-3 Patient seen and examined at bedside on the floors. No acute events overnight. S/p OR debridement and biospy yesterday, also received a nerve block. This AM, still some RLE pain, reports improved with pain medication. Denies chest pain, shortness of breath, nausea, emesis. 24hr B-202, 126 this AM. Appears more controlled yesterday, but was NPO for half of the day prior to OR, so likely contributed. Objective - Vital Signs/Intake and Output Vital Signs (last 24 hours): Temp Pulse Resp BP Pulse Ox 97.9 F 71 20 93/60 L 96 12/03/18 07:56 12/03/18 07:56 12/03/18 07:56 12/03/18 07:56 12/03/18 07:56 Intake and Output: 12/03/18 12/03/18 06:59 18:59 Intake Total 2350 Balance 2350 - Medications Medications: Current Medications Acetaminophen (Tylenol 325mg Tab) 650 mg PO Q6 PRN PRN Reason: Pain, Mild (1-3) Glipizide (Glucotrol) 10 mg PO ACBD [facility] Last Admin: 12/03/18 08:30 Dose: 10 mg Home Med (Patient's Own Medication) 1 tab PO DAILY [facility] Last Admin: 12/02/18 09:37 Dose: Not Given Vancomycin HCl 1 gm/ Sodium (Chloride) 250 mls @ 166.7 mls/hr IVPB Q12H [facility]; Protocol Last Admin: 12/03/18 03:57 Dose: 166.7 mls/hr Piperacillin Sod/Tazobactam (Sod 3.375 gm/ Sodium Chloride) 100 mls @ 200 mls/hr IVPB Q8H [facility]; Protocol Last Admin: 12/03/18 02:03 Dose: 200 mls/hr Lactated Ringer's (Lactated Ringer's) 1,000 mls @ 100 mls/hr IV .Q10H [facility] Last Admin: 12/03/18 08:46 Dose: 100 mls/hr Ibuprofen (Motrin Tab) 400 mg PO Q8 PRN PRN Reason: Pain, moderate (4-7) Last Admin: 11/27/18 02:48 Dose: 400 mg Insulin Human Regular (Novolin R) 0 unit SC [facility]; Protocol Last Admin: 12/03/18 07:36 Dose: Not Given Oxycodone/Acetaminophen (Percocet 5/325 Mg Tab) 1 tab PO Q6H PRN PRN Reason: Pain, moderate (4-7) Stop: 12/04/18 10:22 Last Admin: 12/03/18 04:45 Dose: 1 tab Oxycodone/Acetaminophen (Percocet 5/325 Mg Tab) 1 tab PO Q6H PRN PRN Reason: Pain, moderate (4-7) Stop: 12/05/18 14:43 Oxycodone/Acetaminophen (Percocet 5/325 Mg Tab) 2 tab PO Q6H PRN PRN Reason: Pain, severe (8-10) Stop: 12/05/18 14:43 Pantoprazole Sodium (Protonix Ec Tab) 40 mg PO DAILY [facility] Last Admin: 12/02/18 09:37 Dose: Not Given Prednisolone Acetate (Pred Forte 1% Opht Susp) 1 ml OS TID [facility] Last Admin: 12/02/18 19:02 Dose: 1 drop Sitagliptin Phosphate (Januvia) 100 mg PO DAILY [facility] Last Admin: 12/02/18 09:37 Dose: Not Given - Labs Labs: 11/30/18 07:19 11/30/18 07:19 PT 13.0 SECONDS (9.7-12.2) H 11/30/18 07:19 INR 1.2 11/30/18 07:19 APTT 29 SECONDS (21-34) 11/30/18 07:19 - Additional Findings Additional findings: - Constitutional Appears: Non-toxic, No Acute Distress - Head Exam Head Exam: ATRAUMATIC, NORMAL INSPECTION, NORMOCEPHALIC - Eye Exam Eye Exam: EOMI, Normal appearance. absent: Conjunctival injection, Scleral icterus Pupil Exam: absent: Irregular, Unequal - ENT Exam ENT Exam: Mucous Membranes Moist - Neck Exam Neck Exam: Normal Inspection. absent: Thyromegaly - Respiratory Exam Respiratory Exam: Clear to Ausculation Bilateral, NORMAL BREATHING PATTERN. absent: Accessory Muscle Use, Chest Wall Tenderness, Decreased Breath Sounds, Rales, Rhonchi, Wheezes - Cardiovascular Exam Cardiovascular Exam: REGULAR RHYTHM, RRR, +S1, +S2. absent: Bradycardia, Tachycardia, Irregular Rhythm, JVD, +S4 - GI/Abdominal Exam GI & Abdominal Exam: Soft, Normal Bowel Sounds. absent: Tenderness - Extremities Exam Extremities Exam: fresh bandaging around RLE at/adjacent to R ankle, no t enderness in bilateral distal feet. absent: Pedal Edema - Neurological Exam Additional comments: awake and alert, moving all extremities spontaneously and on command, following all commands appropriately - Psychiatric Exam Psychiatric exam: Normal Affect, Normal Mood - Skin bandaged RLE wound, otherwise dry/intact/warm Assessment and Plan - Assessment and Plan (Free Text) Assessment: This is a 48 year old female with PMH of DM2, HTN, multiple ulcers, and RA who presented for complaints of non-healing right leg ulcer. Endocrinology consultation was requested due to uncontrolled DM. POD #1 for OR debridement and biopsy. Plan: 1) Uncontrolled DM2 with peripheral neuropathy 2) Nonhealing RLE ulceration 3) Hx of LE ulcers 4) HTN -24hr B-202, 126 this AM. Appears more controlled yesterday, but likely 2/2 NPO for half of day yesterday, continue to monitor today -Current regimen is jardiance 10mg daily, januvia 100mg daily, Glipizide 10mg ACBD, Insulin Low-ISS; will continue -POD #1 for debridement of foot ulcer and bone biopsy, further management/abx as per ID and Podiatry Patient seen and examined, to be discussed with attending, Dr. Alford. Further recs as per attending.
[2018-12-03] MEDS: Pantoprazole 40 mg EC Tab PO SCH (10:13)
[2018-12-03] MEDS: PrednisoLONE 1% Opht Susp(5 ml) OS SCH ×3 (10:14→19:27)
[2018-12-03] MEDS: JARDIANCE 10MG PO SCH (10:14)
--- NOTE | 2018-12-03 10:28 | CP.PCM.PN ---
Subjective - Date & Time of Evaluation Date of Evaluation: 12/03/18 Time of Evaluation: 10:15 - Subjective Subjective: Progress note dictated #[id number] Objective - Vital Signs/Intake and Output Vital Signs (last 24 hours): Temp Pulse Resp BP Pulse Ox 97.9 F 71 20 93/60 L 96 12/03/18 07:56 12/03/18 07:56 12/03/18 07:56 12/03/18 07:56 12/03/18 07:56 Intake and Output: 12/03/18 12/03/18 06:59 18:59 Intake Total 2350 Balance 2350 - Medications Medications: Current Medications Acetaminophen (Tylenol 325mg Tab) 650 mg PO Q6 PRN PRN Reason: Pain, Mild (1-3) Glipizide (Glucotrol) 10 mg PO ACBD [facility] Last Admin: 12/03/18 08:30 Dose: 10 mg Home Med (Patient's Own Medication) 1 tab PO DAILY [facility] Last Admin: 12/03/18 10:14 Dose: 1 tab Vancomycin HCl 1 gm/ Sodium (Chloride) 250 mls @ 166.7 mls/hr IVPB Q12H [facility]; Protocol Last Admin: 12/03/18 03:57 Dose: 166.7 mls/hr Piperacillin Sod/Tazobactam (Sod 3.375 gm/ Sodium Chloride) 100 mls @ 200 mls/hr IVPB Q8H [facility]; Protocol Last Admin: 12/03/18 10:12 Dose: 200 mls/hr Lactated Ringer's (Lactated Ringer's) 1,000 mls @ 100 mls/hr IV .Q10H [facility] Last Admin: 12/03/18 08:46 Dose: 100 mls/hr Ibuprofen (Motrin Tab) 400 mg PO Q8 PRN PRN Reason: Pain, moderate (4-7) Last Admin: 11/27/18 02:48 Dose: 400 mg Insulin Human Regular (Novolin R) 0 unit SC [facility]; Protocol Last Admin: 12/03/18 07:36 Dose: Not Given Oxycodone/Acetaminophen (Percocet 5/325 Mg Tab) 1 tab PO Q6H PRN PRN Reason: Pain, moderate (4-7) Stop: 12/04/18 10:22 Last Admin: 12/03/18 04:45 Dose: 1 tab Oxycodone/Acetaminophen (Percocet 5/325 Mg Tab) 1 tab PO Q6H PRN PRN Reason: Pain, moderate (4-7) Stop: 12/05/18 14:43 Oxycodone/Acetaminophen (Percocet 5/325 Mg Tab) 2 tab PO Q6H PRN PRN Reason: Pain, severe (8-10) Stop: 12/05/18 14:43 Pantoprazole Sodium (Protonix Ec Tab) 40 mg PO DAILY [facility] Last Admin: 12/03/18 10:13 Dose: 40 mg Prednisolone Acetate (Pred Forte 1% Opht Susp) 1 ml OS TID [facility] Last Admin: 12/03/18 10:14 Dose: 1 drop Sitagliptin Phosphate (Januvia) 100 mg PO DAILY [facility] Last Admin: 12/03/18 10:13 Dose: 100 mg - Labs Labs: 11/30/18 07:19 11/30/18 07:19 PT 13.0 SECONDS (9.7-12.2) H 11/30/18 07:19 INR 1.2 11/30/18 07:19 APTT 29 SECONDS (21-34) 11/30/18 07:19
--- NOTE | 2018-12-03 12:10 | CP.PCM.PN ---
<Phyllis Pitt - Last Filed: 12/03/18 12:07> Subjective - Date & Time of Evaluation Date of Evaluation: 12/03/18 Time of Evaluation: 12:07 - Subjective Subjective: Podiatry Progress Note - Dr. Orta 48 year old female patient seen and evaluated POD#1 right lower leg wound debridement with biopsy. Patient resting comfortably, in good spirits today. NAD. No acute events overnight. Patient states the nerve block she received after surgery has significant helped with pain control overnight; states she feels some pain in her right leg though well controlled. Patient states she is able to get out of bed though with assistance. Dressing RLE clean/dry/intact. Denies n/v/f/d/c/sob/reza/cp. Objective - Vital Signs/Intake and Output Vital Signs (last 24 hours): Temp Pulse Resp BP Pulse Ox 97.9 F 71 20 93/60 L 96 12/03/18 07:56 12/03/18 07:56 12/03/18 07:56 12/03/18 07:56 12/03/18 07:56 Intake and Output: 12/03/18 12/03/18 06:59 18:59 Intake Total 2350 Balance 2350 - Medications Medications: Current Medications Acetaminophen (Tylenol 325mg Tab) 650 mg PO Q6 PRN PRN Reason: Pain, Mild (1-3) Glipizide (Glucotrol) 10 mg PO ACBD [facility] Last Admin: 12/03/18 08:30 Dose: 10 mg Heparin Sodium (Porcine) (Heparin) 5,000 units SC Q12H [facility] Last Admin: 12/03/18 11:22 Dose: 5,000 units Home Med (Patient's Own Medication) 1 tab PO DAILY [facility] Last Admin: 12/03/18 10:14 Dose: 1 tab Vancomycin HCl 1 gm/ Sodium (Chloride) 250 mls @ 166.7 mls/hr IVPB Q12H [facility]; Protocol Last Admin: 12/03/18 03:57 Dose: 166.7 mls/hr Piperacillin Sod/Tazobactam (Sod 3.375 gm/ Sodium Chloride) 100 mls @ 200 mls/hr IVPB Q8H [facility]; Protocol Last Admin: 12/03/18 10:12 Dose: 200 mls/hr Lactated Ringer's (Lactated Ringer's) 1,000 mls @ 100 mls/hr IV .Q10H [facility] Last Admin: 12/03/18 08:46 Dose: 100 mls/hr Ibuprofen (Motrin Tab) 400 mg PO Q8 PRN PRN Reason: Pain, moderate (4-7) Last Admin: 11/27/18 02:48 Dose: 400 mg Insulin Human Regular (Novolin R) 0 unit SC ACHS [facility]; Protocol Last Admin: 12/03/18 11:41 Dose: Not Given Oxycodone/Acetaminophen (Percocet 5/325 Mg Tab) 1 tab PO Q6H PRN PRN Reason: Pain, moderate (4-7) Stop: 12/04/18 10:22 Last Admin: 12/03/18 04:45 Dose: 1 tab Oxycodone/Acetaminophen (Percocet 5/325 Mg Tab) 1 tab PO Q6H PRN PRN Reason: Pain, moderate (4-7) Stop: 12/05/18 14:43 Oxycodone/Acetaminophen (Percocet 5/325 Mg Tab) 2 tab PO Q6H PRN PRN Reason: Pain, severe (8-10) Stop: 12/05/18 14:43 Pantoprazole Sodium (Protonix Ec Tab) 40 mg PO DAILY [facility] Last Admin: 12/03/18 10:13 Dose: 40 mg Prednisolone Acetate (Pred Forte 1% Opht Susp) 1 ml OS TID [facility] Last Admin: 12/03/18 10:14 Dose: 1 drop Sitagliptin Phosphate (Januvia) 100 mg PO DAILY [facility] Last Admin: 12/03/18 10:13 Dose: 100 mg - Labs Labs: 11/30/18 07:19 11/30/18 07:19 PT 13.0 SECONDS (9.7-12.2) H 11/30/18 07:19 INR 1.2 11/30/18 07:19 APTT 29 SECONDS (21-34) 11/30/18 07:19 - Constitutional Appears: Non-toxic, No Acute Distress - Extremities Exam Additional comments: RLE focused: Dressing clean/dry/intact with no strikethrough present Neurovascular status intact to right foot - Neurological Exam Neurological Exam: Alert, Awake, Oriented x3 - Psychiatric Exam Psychiatric exam: Normal Affect, Normal Mood Assessment and Plan - Assessment and Plan (Free Text) Assessment: 48F POD#1 right lower leg wound debridement with biopsy (DOS: 12/02/18) -DDx infectious vs. malignancy Plan: Patient seen and evaluated VSS R leg wound culture: pseudomonas aeruginosa and staph epidermidis Mycobacterial culture pending Acid-fast bacilli stain - negative Right leg fungal smear - negative Intra-op pathology obtained x5, f/u Heme/Onc consulted r/o malignancy ID recs appreciated - may need intermediate card tender abx, awaiting biopsy -Continue abx; vanc zosyn sensitive Dressing left intact today, plan for first dressing change Tuesday 12/05 WBAT bilateral LE Continue pain mgmt Podiatry will continue to follow <Abram Orta - Last Filed: 12/03/18 21:02> Objective - Vital Signs/Intake and Output Vital Signs (last 24 hours): Temp Pulse Resp BP Pulse Ox 97.7 F 79 20 101/66 96 12/03/18 17:05 12/03/18 17:05 12/03/18 17:05 12/03/18 17:05 12/03/18 17:05 - Medications Medications: Current Medications Acetaminophen (Tylenol 325mg Tab) 650 mg PO Q6 PRN PRN Reason: Pain, Mild (1-3) Glipizide (Glucotrol) 10 mg PO ACBD [facility] Last Admin: 12/03/18 16:30 Dose: Not Given Heparin Sodium (Porcine) (Heparin) 5,000 units SC Q12H [facility] Last Admin: 12/03/18 11:22 Dose: 5,000 units Home Med (Patient's Own Medication) 1 tab PO DAILY [facility] Last Admin: 12/03/18 10:14 Dose: 1 tab Vancomycin HCl 1 gm/ Sodium (Chloride) 250 mls @ 166.7 mls/hr IVPB Q12H [facility]; Protocol Last Admin: 12/03/18 16:29 Dose: 166.7 mls/hr Piperacillin Sod/Tazobactam (Sod 3.375 gm/ Sodium Chloride) 100 mls @ 200 mls/hr IVPB Q8H [facility]; Protocol Last Admin: 12/03/18 18:44 Dose: 200 mls/hr Ibuprofen (Motrin Tab) 400 mg PO Q8 PRN PRN Reason: Pain, moderate (4-7) Last Admin: 12/03/18 16:10 Dose: 400 mg Insulin Human Regular (Novolin R) 0 unit SC A[facility]S [facility]; Protocol Last Admin: 12/03/18 16:12 Dose: Not Given Oxycodone/Acetaminophen (Percocet 5/325 Mg Tab) 1 tab PO Q6H PRN PRN Reason: Pain, moderate (4-7) Stop: 12/04/18 10:22 Last Admin: 12/03/18 04:45 Dose: 1 tab Oxycodone/Acetaminophen (Percocet 5/325 Mg Tab) 1 tab PO Q6H PRN PRN Reason: Pain, moderate (4-7) Stop: 12/05/18 14:43 Oxycodone/Acetaminophen (Percocet 5/325 Mg Tab) 2 tab PO Q6H PRN PRN Reason: Pain, severe (8-10) Stop: 12/05/18 14:43 Last Admin: 12/03/18 12:22 Dose: 2 tab Pantoprazole Sodium (Protonix Ec Tab) 40 mg PO DAILY [facility] Last Admin: 12/03/18 10:13 Dose: 40 mg Prednisolone Acetate (Pred Forte 1% Opht Susp) 1 ml OS TID [facility] Last Admin: 12/03/18 19:27 Dose: 1 drop Sitagliptin Phosphate (Januvia) 100 mg PO DAILY [facility] Last Admin: 12/03/18 10:13 Dose: 100 mg - Labs Labs: 11/30/18 07:19 11/30/18 07:19 PT 13.0 SECONDS (9.7-12.2) H 11/30/18 07:19 INR 1.2 11/30/18 07:19 APTT 29 SECONDS (21-34) 11/30/18 07:19 Assessment and Plan - Assessment and Plan (Free Text) Plan: agree with above note .Awaiting biopsy results ./Dr Medeiros
--- NOTE | 2018-12-03 13:33 | CP.PCM.CON ---
History of Present Illness - History of Present Illness History of Present Illness: 48 year old female with a history of DM, admitted with worsening RLE wound and anemia. The patient notes she has been undergoing treatment of her RLE wound but notes it has been more painful. She is s/p debridement and biopsy. She a lso notes to chronic anemia which has required PRBC transfusion support in the past. She denies abnormal bleeding and bruising. Past medical history: DM, RLE wound Past surgical history: RLE wound debridement and biopsy. Family history: Denies hematologic and oncologic problems Social history: Denies tobacco, alcohol, and illicit drug use. Allergies: NKA Review of systems: All remaining review of systems including HEENT, cardiovascular, respiratory, gastrointestinal, genitourinary, musculoskeletal, dermatologic, neurologic and psychiatric are negative unless mentioned in the HPI. Past Patient History - Infectious Disease Hx of Infectious Diseases: None - Past Medical History & Family History Past Medical History?: Yes - Past Social History Smoking Status: Never Smoked - CARDIAC Hx Hypertension: No (States she doesnt have HTN) - PULMONARY Hx Respiratory Disorders: No - NEUROLOGICAL Hx Neurological Disorder: No - HEENT Hx HEENT Problems: Yes Other/Comment: Eye surgery post [place] - RENAL Hx Chronic Kidney Disease: No - ENDOCRINE/METABOLIC Hx Endocrine Disorders: Yes Hx Diabetes Mellitus Type 2: Yes - HEMATOLOGICAL/ONCOLOGICAL Hx Blood Disorders: No - INTEGUMENTARY Hx Dermatological Problems: Yes Other/Comment: Chronic wounds to upper and lower extremities - MUSCULOSKELETAL/RHEUMATOLOGICAL Hx Musculoskeletal Disorders: No Hx Falls: No - GASTROINTESTINAL Hx Gastrointestinal Disorders: No - GENITOURINARY/GYNECOLOGICAL Hx Genitourinary Disorders: No - PSYCHIATRIC Hx Substance Use: No - SURGICAL HISTORY Hx Surgeries: Yes Other/Comment: Eye surgery post [place] - ANESTHESIA Hx Anesthesia: Yes Hx Anesthesia Reactions: No Hx Malignant Hyperthermia: No Meds Allergies/Adverse Reactions: Allergies Allergy/AdvReac Type Severity Reaction Status Date / Time No Known Allergies Allergy Verified 07/16/17 14:18 - Medications Medications: Current Medications Acetaminophen (Tylenol 325mg Tab) 650 mg PO Q6 PRN PRN Reason: Pain, Mild (1-3) Glipizide (Glucotrol) 10 mg PO ACBD [facility] Last Admin: 12/03/18 08:30 Dose: 10 mg Heparin Sodium (Porcine) (Heparin) 5,000 units SC Q12H [facility] Last Admin: 12/03/18 11:22 Dose: 5,000 units Home Med (Patient's Own Medication) 1 tab PO DAILY [facility] Last Admin: 12/03/18 10:14 Dose: 1 tab Vancomycin HCl 1 gm/ Sodium (Chloride) 250 mls @ 166.7 mls/hr IVPB Q12H [facility]; Protocol Last Admin: 12/03/18 03:57 Dose: 166.7 mls/hr Piperacillin Sod/Tazobactam (Sod 3.375 gm/ Sodium Chloride) 100 mls @ 200 mls/hr IVPB Q8H [facility]; Protocol Last Admin: 12/03/18 10:12 Dose: 200 mls/hr Lactated Ringer's (Lactated Ringer's) 1,000 mls @ 100 mls/hr IV .Q10H [facility] Last Admin: 12/03/18 08:46 Dose: 100 mls/hr Ibuprofen (Motrin Tab) 400 mg PO Q8 PRN PRN Reason: Pain, moderate (4-7) Last Admin: 11/27/18 02:48 Dose: 400 mg Insulin Human Regular (Novolin R) 0 unit SC ACHS [facility]; Protocol Last Admin: 12/03/18 11:41 Dose: Not Given Oxycodone/Acetaminophen (Percocet 5/325 Mg Tab) 1 tab PO Q6H PRN PRN Reason: Pain, moderate (4-7) Stop: 12/04/18 10:22 Last Admin: 12/03/18 04:45 Dose: 1 tab Oxycodone/Acetaminophen (Percocet 5/325 Mg Tab) 1 tab PO Q6H PRN PRN Reason: Pain, moderate (4-7) Stop: 12/05/18 14:43 Oxycodone/Acetaminophen (Percocet 5/325 Mg Tab) 2 tab PO Q6H PRN PRN Reason: Pain, severe (8-10) Stop: 12/05/18 14:43 Last Admin: 12/03/18 12:22 Dose: 2 tab Pantoprazole Sodium (Protonix Ec Tab) 40 mg PO DAILY [facility] Last Admin: 12/03/18 10:13 Dose: 40 mg Prednisolone Acetate (Pred Forte 1% Opht Susp) 1 ml OS TID [facility] Last Admin: 12/03/18 10:14 Dose: 1 drop Sitagliptin Phosphate (Januvia) 100 mg PO DAILY [facility] Last Admin: 12/03/18 10:13 Dose: 100 mg Physical Exam - Head Exam Head Exam: ATRAUMATIC - Eye Exam Eye Exam: Normal appearance - ENT Exam ENT Exam: Mucous Membranes Dry - Respiratory Exam Respiratory Exam: NORMAL BREATHING PATTERN - Cardiovascular Exam Cardiovascular Exam: +S1, +S2 - GI/Abdominal Exam GI & Abdominal Exam: Normal Bowel Sounds - Extremities Exam Additional comments: RLE dressing - Neurological Exam Neurological exam: Oriented x3 - Psychiatric Exam Psychiatric exam: Normal Affect, Normal Mood - Skin Skin Exam: Warm Results - Vital Signs Recent Vital Signs: Last Vital Signs Temp 97.9 F 12/03/18 07:56 Pulse 71 12/03/18 07:56 Resp 20 12/03/18 07:56 BP 93/60 L 12/03/18 07:56 Pulse Ox 96 12/03/18 07:56 - Labs Result Diagrams: 11/30/18 07:19 11/30/18 07:19 Labs: Laboratory Results - last 24 hr 12/02/18 12/02/18 12/03/18 15:45 21:15 07:05 POC Glucose (mg/dL) 88 202 H 126 H 12/03/18 11:14 POC Glucose (mg/dL) 191 H Assessment & Plan (1) Anemia Assessment and Plan: retic count, b12, folate, ferritin, FOBT to further characterize suspect anemia of chronic disease Status: Acute (2) Abscess of right lower extremity excluding foot Assessment and Plan: s/p debridement and biopsy f/u biopsy results Thank you for this interesting consult. Status: Acute
--- NOTE | 2018-12-03 14:57 | PN ---
DATE: 12/03/2018 SUBJECTIVE: The patient is seen and examined at bedside. The patient offers no new complaints other than right foot pain and minimal swelling in the right foot since yesterday. Denies any other new complaints. PHYSICAL EXAMINATION: GENERAL: Middle-aged female lying in bed, in no acute distress. VITAL SIGNS: Blood pressure 93/60, pulse 71, respirations 20, temperature 97.9 degrees Fahrenheit. O2 saturation is 96% on room air. HEENT: Pupils are equal, round, and reactive to light and accommodation. Extraocular muscles are intact. No icterus. No pallor. No oral thrush. No pharyngeal congestion. NECK: Supple. No JVD. LUNGS: Bilateral vesicular breath sounds. No wheezing. No rhonchi. CARDIOVASCULAR SYSTEM: S1 and S2 present and regular. ABDOMEN: Soft and nontender. Bowel sounds present. No guarding. No rigidity. No rebound tenderness noted. CENTRAL NERVOUS SYSTEM: Alert, awake and oriented x3. No focal deficits noted. EXTREMITIES: Right foot dressing in place. Pedal edema noted. MEDICATIONS: Include glipizide 10 mg b.i.d., ibuprofen as needed, Ringers lactate 100 mL daily, Percocet as needed, morphine as needed, Zosyn 3.375 g IV every 8 hours, Januvia 100 mg daily, vancomycin 1 g 12 hours. LABORATORY DATA: Accu-Chek 146, 101, 88, 202, 126. ASSESSMENT AND PLAN: A middle aged female with history of diabetes mellitus, decreased vision in both eyes, admitted for right foot nonhealing ulcer, wound growing pseudomonas and Staphylococcus epidermidis, on vancomycin and Zosyn, status post debridement and biopsy. Awaiting for biopsy report. Continue with current antibiotics. Continue with current diabetic regimen. Will follow up with Podiatry and Infectious Disease regarding discharge planning. We will add as her clinical course progresses. Yamil Horn MD
--- NOTE | 2018-12-03 19:09 | PN ---
DATE: 12/03/2018 ENDOCRINOLOGY FOLLOWUP NOTE LOCATION: Room 371. SUBJECTIVE: This is a 48-year-old female with recent debridement for her distal right lower extremity neuropathic ulceration, which is nonhealing and also underwent a localized biopsy to exclude any underlying osteomyelitis and is now being followed closely for metabolic management. Her glycemic levels are fluctuating, but improved and the glucose levels have ranged from 126 to 191 and 202 mg/dL. LABORATORY DATA: Her chemistry shows a BUN of 12, sodium 136, potassium 3.8, chloride 104, CO2 of 26, glucose 92, and creatinine 0.5. ASSESSMENT AND PLAN: So at this time, we will continue the same oral hypoglycemic drug therapy given in combination with glipizide given as 10 mg b.i.d. before meals as ordered. We will also continue the Januvia given as 100 mg once daily as ordered. We will obtain serial chemistries and supplement accordingly as needed. We will follow. Gwen Alford MD
--- NOTE | 2018-12-03 19:22 | CP.PCM.PN ---
Subjective - Date & Time of Evaluation Date of Evaluation: 12/03/18 Time of Evaluation: 09:00 - Subjective Subjective: less pain no fever IV rx in progress Objective - Vital Signs/Intake and Output Vital Signs (last 24 hours): Temp Pulse Resp BP Pulse Ox 97.7 F 79 20 101/66 96 12/03/18 17:05 12/03/18 17:05 12/03/18 17:05 12/03/18 17:05 12/03/18 17:05 - Medications Medications: Current Medications Acetaminophen (Tylenol 325mg Tab) 650 mg PO Q6 PRN PRN Reason: Pain, Mild (1-3) Glipizide (Glucotrol) 10 mg PO ACBD [facility] Last Admin: 12/03/18 16:30 Dose: Not Given Heparin Sodium (Porcine) (Heparin) 5,000 units SC Q12H [facility] Last Admin: 12/03/18 11:22 Dose: 5,000 units Home Med (Patient's Own Medication) 1 tab PO DAILY [facility] Last Admin: 12/03/18 10:14 Dose: 1 tab Vancomycin HCl 1 gm/ Sodium (Chloride) 250 mls @ 166.7 mls/hr IVPB Q12H [facility]; Protocol Last Admin: 12/03/18 16:29 Dose: 166.7 mls/hr Piperacillin Sod/Tazobactam (Sod 3.375 gm/ Sodium Chloride) 100 mls @ 200 mls/hr IVPB Q8H [facility]; Protocol Last Admin: 12/03/18 18:44 Dose: 200 mls/hr Ibuprofen (Motrin Tab) 400 mg PO Q8 PRN PRN Reason: Pain, moderate (4-7) Last Admin: 12/03/18 16:10 Dose: 400 mg Insulin Human Regular (Novolin R) 0 unit SC ACHS [facility]; Protocol Last Admin: 12/03/18 16:12 Dose: Not Given Oxycodone/Acetaminophen (Percocet 5/325 Mg Tab) 1 tab PO Q6H PRN PRN Reason: Pain, moderate (4-7) Stop: 12/04/18 10:22 Last Admin: 12/03/18 04:45 Dose: 1 tab Oxycodone/Acetaminophen (Percocet 5/325 Mg Tab) 1 tab PO Q6H PRN PRN Reason: Pain, moderate (4-7) Stop: 12/05/18 14:43 Oxycodone/Acetaminophen (Percocet 5/325 Mg Tab) 2 tab PO Q6H PRN PRN Reason: Pain, severe (8-10) Stop: 12/05/18 14:43 Last Admin: 12/03/18 12:22 Dose: 2 tab Pantoprazole Sodium (Protonix Ec Tab) 40 mg PO DAILY [facility] Last Admin: 12/03/18 10:13 Dose: 40 mg Prednisolone Acetate (Pred Forte 1% Opht Susp) 1 ml OS TID [facility] Last Admin: 12/03/18 14:07 Dose: Not Given Sitagliptin Phosphate (Januvia) 100 mg PO DAILY [facility] Last Admin: 12/03/18 10:13 Dose: 100 mg - Labs Labs: 11/30/18 07:19 11/30/18 07:19 PT 13.0 SECONDS (9.7-12.2) H 11/30/18 07:19 INR 1.2 11/30/18 07:19 APTT 29 SECONDS (21-34) 11/30/18 07:19 - Constitutional Appears: Well - Head Exam Head Exam: ATRAUMATIC, NORMAL INSPECTION, NORMOCEPHALIC - Eye Exam Eye Exam: EOMI, Normal appearance, PERRL Pupil Exam: NORMAL ACCOMODATION, PERRL - ENT Exam ENT Exam: Mucous Membranes Moist, Normal Exam - Neck Exam Neck Exam: Full ROM, Normal Inspection. absent: Lymphadenopathy - Respiratory Exam Respiratory Exam: Clear to Ausculation Bilateral, NORMAL BREATHING PATTERN - Cardiovascular Exam Cardiovascular Exam: REGULAR RHYTHM, +S1, +S2. absent: Murmur - GI/Abdominal Exam GI & Abdominal Exam: Distended, Soft. absent: Tenderness - Rectal Exam Rectal Exam: Deferred - Exam Exam: NORMAL INSPECTION - Extremities Exam Extremities Exam: Full ROM, Normal Capillary Refill, Normal Inspection. absent: Joint Swelling, Pedal Edema - Back Exam Back Exam: NORMAL INSPECTION - Neurological Exam Neurological Exam: Alert, Awake, CN II-XII Intact, Normal Gait, Oriented x3 - Psychiatric Exam Psychiatric exam: Normal Affect, Normal Mood - Skin Skin Exam: Dry, Intact, Normal Color, Warm Assessment and Plan (1) Abscess of right lower extremity excluding foot Status: Acute (2) Diabetes mellitus type 2 in nonobese Status: Acute - Assessment and Plan (Free Text) Assessment: cont iv rx await bx / cultures
--- NOTE | 2018-12-03 20:30 | OP ---
PROCEDURE DATE: 12/02/2018 SURGEON: Abram Orta DPM ASSISTANTS: Bruna Barajas, PGY-1 and Phyllis Pitt DPM, PGY-2 ANESTHESIA ADMINISTERED BY: Antoni Mccray DO TYPE OF ANESTHESIA: General LMA. PREOPERATIVE DIAGNOSIS: Right leg nonhealing ulceration noted circumferentially to the lower leg. POSTOPERATIVE DIAGNOSIS: Right leg nonhealing ulceration noted circumferentially to the lower leg. NAME OF PROCEDURE: Multiple Punch biopsy of the right lower leg ulceration and debridement of the right lower leg ulceration with the use of Versajet. INDICATIONS: The patient is a 48-year-old female with above diagnosis. The patient has exhausted all conservative treatments at this time and now requires surgical intervention. The patient signed the consent after careful explanation of risks, benefits, complications, and alternatives for the surgical procedures. No guarantees were given nor implied. N.p.o. status was confirmed prior to taking the patient to the OR. PREPARATION: The patient was brought into the operating room and placed on the operating room table in a supine position. A time-out was performed for identification of the correct patient and procedure. After induction of general LMA sedation, the right lower extremity was prepped and draped in a normal sterile manner, and the procedure began. No tourniquet was utilized during the procedure. DESCRIPTION OF PROCEDURE: Attention was directed to the right lower leg where fibrogranular circumferential wound was noted with macerated wound end. No malodor was noted. Ulcer was not probe to bone. No tracking or tunneling was noted. Using a punch biopsy, five separate full-thickness sites were punched and biopsy was taken and sent to Pathology. At setting four, Versajet was then used on the ulceration to debride all fibrotic tissue. All fibrotic tissue was removed. Healthy granular bleeding tissue was noted. The site was then copiously flushed with normal sterile saline. The site was then dressed with Xeroform gauze, ABD, Kerlix, Coban, and Thony bandage. POSTOPERATIVE CONDITION: The patient tolerated the anesthesia and procedure well and was escorted to the recovery room with vital signs stable and neurovascular status intact to the right lower extremity. The patient was then given a popliteal and adductor canal block by the anesthesiologist. The patient tolerated without any complications. Podiatry will continue to follow the patient while in-house. Oncologist will be consulted, and biopsy will be followed up. BRUNA BARAJAS Abram Orta DPM [facility]
[2018-12-04] MEDS: Piperacillin/Tazobact 3.375 GM in Sodium Chloride 100 ML IVPB SCH ×3 (02:01→19:27)
[2018-12-04] MEDS: Oxycodone/Acetaminophen 5/325 mg Tab PO PRN ×2 (04:20→11:28)
--- NOTE | 2018-12-04 07:32 | CP.PCM.PN ---
Subjective - Date & Time of Evaluation Date of Evaluation: 12/04/18 Time of Evaluation: 07:28 - Subjective Subjective: Podiatry Progress Note - Dr. Orta 48 year old female patient seen and evaluated this AM POD#2 right lower leg wound debridement with biopsy. NAD. No acute events overnight. Patient states she was not able to sleep well last night secondary to right leg pain. Offers no other lower extremity complaints. Denies n/v/f/d/c/sob/reza/cp. Awaiting biopsy results. Objective - Vital Signs/Intake and Output Vital Signs (last 24 hours): Temp Pulse Resp BP Pulse Ox 97.7 F 69 20 116/66 96 12/04/18 00:09 12/04/18 00:09 12/04/18 00:09 12/04/18 00:09 12/04/18 00:09 Intake and Output: 12/04/18 12/04/18 06:59 18:59 Intake Total 1350 Balance 1350 - Medications Medications: Current Medications Acetaminophen (Tylenol 325mg Tab) 650 mg PO Q6 PRN PRN Reason: Pain, Mild (1-3) Glipizide (Glucotrol) 10 mg PO ACBD [facility] Last Admin: 12/03/18 16:30 Dose: Not Given Heparin Sodium (Porcine) (Heparin) 5,000 units SC Q12H [facility] Last Admin: 12/03/18 11:22 Dose: 5,000 units Home Med (Patient's Own Medication) 1 tab PO DAILY [facility] Last Admin: 12/03/18 10:14 Dose: 1 tab Vancomycin HCl 1 gm/ Sodium (Chloride) 250 mls @ 166.7 mls/hr IVPB Q12H [facility]; Protocol Last Admin: 12/04/18 03:53 Dose: 166.7 mls/hr Piperacillin Sod/Tazobactam (Sod 3.375 gm/ Sodium Chloride) 100 mls @ 200 mls/hr IVPB Q8H [facility]; Protocol Last Admin: 12/04/18 02:01 Dose: 200 mls/hr Ibuprofen (Motrin Tab) 400 mg PO Q8 PRN PRN Reason: Pain, moderate (4-7) Last Admin: 12/03/18 16:10 Dose: 400 mg Insulin Human Regular (Novolin R) 0 unit SC ACHS [facility]; Protocol Last Admin: 12/03/18 16:12 Dose: Not Given Oxycodone/Acetaminophen (Percocet 5/325 Mg Tab) 1 tab PO Q6H PRN PRN Reason: Pain, moderate (4-7) Stop: 12/04/18 10:22 Last Admin: 12/04/18 04:20 Dose: 1 tab Oxycodone/Acetaminophen (Percocet 5/325 Mg Tab) 1 tab PO Q6H PRN PRN Reason: Pain, moderate (4-7) Stop: 12/05/18 14:43 Oxycodone/Acetaminophen (Percocet 5/325 Mg Tab) 2 tab PO Q6H PRN PRN Reason: Pain, severe (8-10) Stop: 12/05/18 14:43 Last Admin: 12/03/18 21:40 Dose: 2 tab Pantoprazole Sodium (Protonix Ec Tab) 40 mg PO DAILY [facility] Last Admin: 12/03/18 10:13 Dose: 40 mg Prednisolone Acetate (Pred Forte 1% Opht Susp) 1 ml OS TID [facility] Last Admin: 12/03/18 19:27 Dose: 1 drop Sitagliptin Phosphate (Januvia) 100 mg PO DAILY [facility] Last Admin: 12/03/18 10:13 Dose: 100 mg - Labs Labs: 11/30/18 07:19 11/30/18 07:19 PT 13.0 SECONDS (9.7-12.2) H 11/30/18 07:19 INR 1.2 11/30/18 07:19 APTT 29 SECONDS (21-34) 11/30/18 07:19 - Constitutional Appears: Non-toxic, No Acute Distress - Extremities Exam Additional comments: RLE focused: Dressing clean/dry/intact with no strikethrough present Neurovascular status intact to right foot - Neurological Exam Neurological Exam: Alert, Awake, Oriented x3 - Psychiatric Exam Psychiatric exam: Normal Affect, Normal Mood Assessment and Plan - Assessment and Plan (Free Text) Assessment: 48F POD#2 right lower leg wound debridement with biopsy (DOS: 12/02/18) -DDx infectious vs. malignancy Plan: Patient seen and evaluated Discussed with attending, Dr. Marivel Abdullahi leg wound culture: pseudomonas aeruginosa and staph epidermidis Mycobacterial culture pending Acid-fast bacilli stain - negative Right leg fungal smear - negative Intra-op pathology obtained x5, f/u Heme/Onc recs appreciated - f/u biopsy results ID recs appreciated - may need nursing home abx, awaiting biopsy -Continue abx; vanc zosyn sensitive Dressing left intact today, plan for first dressing change Tuesday 12/05 Activity: WBAT bilateral LE Pain regimen adjusted Podiatry will continue to follow
[2018-12-04] MEDS: (Novolin R) Insulin Human Regular 100 units/ml vial SC SCH ×4 (07:52→22:19)
[2018-12-04 08:31] LABS: BASO % 0.8 % (0.0-2.0); EOS # 0.1 K/uL (0.0-0.7); EOS % 1.8 % (0.0-4.0); HEMOGLOBIN 8.6 g/dL (11.0-16.0); LYMPH # 0.5 K/uL (1.0-4.3); LYMPH % 11.1 % (20.0-40.0); MEAN CELL VOLUME 78.1 fL (81.0-99.0); MEAN CORPUSCULAR HEMOGLOBIN 24.2 pg (27.0-31.0); MEAN PLATELET VOLUME 8.7 fL (7.2-11.7); MONO # 0.7 K/uL (0.0-0.8); MONO % 16.4 % (0.0-10.0); NEUT % 69.9 % (50.0-75.0); RBC 3.55 Mil/uL (3.80-5.20); WHITE BLOOD COUNT 4.3 K/uL (4.8-10.8)
[2018-12-04 08:45] LABS: ALB/GLOB RATIO 1.3 (1.0-2.1); ALBUMIN 3.5 g/dL (3.5-5.0); ALT/SGPT 22 U/L (9-52); AST/SGOT 29 U/L (14-36); BLOOD UREA NITROGEN 8 mg/dL (7-17); CALCIUM 8.9 mg/dl (8.6-10.4); GFR NON-AFRICAN AMERICAN > 60
[2018-12-04 09:16] LABS: FERRITIN 16.5 ng/mL
[2018-12-04 09:46] LABS: FOLATE 15.1 ng/mL
--- NOTE | 2018-12-04 09:58 | CP.PCM.PN ---
Subjective - Date & Time of Evaluation Date of Evaluation: 12/04/18 - Subjective Subjective: Progress note dictated #[id number] Objective - Vital Signs/Intake and Output Vital Signs (last 24 hours): Temp Pulse Resp BP Pulse Ox 98 F 72 20 98/60 L 97 12/04/18 07:43 12/04/18 07:43 12/04/18 07:43 12/04/18 07:43 12/04/18 07:43 Intake and Output: 12/04/18 12/04/18 06:59 18:59 Intake Total 1350 Balance 1350 - Medications Medications: Current Medications Acetaminophen (Tylenol 325mg Tab) 650 mg PO Q6 PRN PRN Reason: Pain, Mild (1-3) Glipizide (Glucotrol) 10 mg PO ACBD [facility] Last Admin: 12/04/18 07:58 Dose: 10 mg Heparin Sodium (Porcine) (Heparin) 5,000 units SC Q12H [facility] Last Admin: 12/03/18 11:22 Dose: 5,000 units Home Med (Patient's Own Medication) 1 tab PO DAILY [facility] Last Admin: 12/03/18 10:14 Dose: 1 tab Vancomycin HCl 1 gm/ Sodium (Chloride) 250 mls @ 166.7 mls/hr IVPB Q12H [facility]; Protocol Last Admin: 12/04/18 03:53 Dose: 166.7 mls/hr Piperacillin Sod/Tazobactam (Sod 3.375 gm/ Sodium Chloride) 100 mls @ 200 mls/hr IVPB Q8H [facility]; Protocol Last Admin: 12/04/18 02:01 Dose: 200 mls/hr Ibuprofen (Motrin Tab) 400 mg PO Q8 PRN PRN Reason: Pain, moderate (4-7) Last Admin: 12/03/18 16:10 Dose: 400 mg Insulin Human Regular (Novolin R) 0 unit SC ACHS [facility]; Protocol Last Admin: 12/04/18 07:52 Dose: Not Given Morphine Sulfate (Morphine) 1 mg IV Q6 PRN PRN Reason: Pain, severe (8-10) Oxycodone/Acetaminophen (Percocet 5/325 Mg Tab) 2 tab PO Q6H PRN PRN Reason: Pain, moderate (4-7) Stop: 12/07/18 07:38 Pantoprazole Sodium (Protonix Ec Tab) 40 mg PO DAILY [facility] Last Admin: 12/03/18 10:13 Dose: 40 mg Prednisolone Acetate (Pred Forte 1% Opht Susp) 1 ml OS TID [facility] Last Admin: 12/03/18 19:27 Dose: 1 drop Sitagliptin Phosphate (Januvia) 100 mg PO DAILY [facility] Last Admin: 12/03/18 10:13 Dose: 100 mg - Labs Labs: 12/04/18 08:20 12/04/18 08:20 PT 13.0 SECONDS (9.7-12.2) H 11/30/18 07:19 INR 1.2 11/30/18 07:19 APTT 29 SECONDS (21-34) 11/30/18 07:19
--- NOTE | 2018-12-04 10:00 | PCM.ANESB7 ---
Adductor Canal Block - Adductor Canal Block Date of Procedure: 12/02/18 Anesthiologist: Shazia Pre-Procedure Diagnosis: Right leg ulcer Post-Procedure Diagnosis: Right leg ulcer Procedure Performed: Adductor Canal Block Right - Procedure Adductor Canal Block: The procedure was explained to the patient that it is for the post-operative pain management. Consent was obtained after a thorough discussion with the patient regarding the benefits and possible complications of local anesthetic adductor canal block of the femoral nerve. Standard monitors, as defined by the ASA, were applied to the patient. Time-out was held with the circulating nurse to confirm the appropriate block. After applying supplemental oxygen and administering IV Sedation as needed, the patient was placed in supine position with and the operative leg was flexed slightly at the knee and externally rotated as needed, and was kept anatomically stable. The mid-thigh of the _right_ lower extremity was exposed. The ultrasound transducer was then applied transversely along the medial aspect, about midway down the thigh and the femoral artery and vein were identified in appropriate relation with the sartor ius muscle. At this time, the femoral nerve was visualized lateral to the femoral artery within the canal. After thorough identification, this area area was prepped with Chloroprep solution three times and 1 % Lidocaine was injected subcutaneously for topical anesthesia. At this point, a #22 gauge Stimuplex 4-inch needle was inserted in-plane in a [id number] orientation, and advanced toward the femoral nerve. Advancement was performed carefully under direct ultrasound visualization. After negative aspiration, __10_cc of __0.5_% ____bupivicaine___was injected. Under ultrasound guidance the local anesthetics were observed spreading around the femoral nerve. The needle was removed intact and sterile dressing was applied. The patient had stable vital signs, was conscious and in no apparent distress.
--- NOTE | 2018-12-04 10:01 | PCM.ANESB2 ---
Popliteal Nerve Block - Popliteal Nerve Block Date of Procedure: 12/02/18 Anesthesiologist: Shazia Pre-Procedure Diagnosis: Right leg ulcer Post-Procedure Diagnosis: Right leg ulcer Procedure Performed: Popliteal Nerve Block Right - Procedure Popliteal Nerve Block: This procedure was explained to the patient that it is for post-operative pain management. Consent was obtained after a thorough discussion with the patient regarding the benefits and possible complications of local anesthetic block of the sciatic nerve at the popliteal level. The patient was brought to the operati ng room and standard monitors are applied. Time-out was held with the circulating nurse to confirm the correct surgery and the appropriate block. After applying oxygen by nasal cannula and administering IV Sedation, patient's operative leg was gently raised and supported and the groove in between the biceps femoris and vastus lateralis muscles was carefully palpated. The skin approximately 8cm above the popliteal crease was then marked. The ultrasound transducer was then applied to the posterior thigh approximately 8cm above the popliteal crease in the transverse plane and the sciatic nerve before its division was visualized lateral to the popliteal artery and in between the bicep femoris and semimembranosus/semitendinosus muscles. After identification, the lateral portion of the thigh was prepped with Betadine solution three times and Lidocaine 1% was injected subcutaneously for topical anesthesia. At this point, a # 21 gauge Stimuplex insulated 4 inch needle was inserted into pre-marked area and advanced in a perpendicular direction. The needle was inserted above the ultrasound transducer in-plane towards the sciatic nerve in a [id number] direction. Needle advancement was performed carefully under direct ultrasound visualization. After repeated negative aspiration, _20_cc of _0.5_ % _ropivicaine__ was injected. Under ultrasound guidance the local anesthetics were observed surrounding sciatic nerve . The needle was removed intact and sterile dressing was applied.
[2018-12-04] MEDS: Pantoprazole 40 mg EC Tab PO SCH (10:29)
[2018-12-04] MEDS: JARDIANCE 10MG PO SCH (10:29)
[2018-12-04] MEDS: PrednisoLONE 1% Opht Susp(5 ml) OS SCH ×3 (10:30→18:00)
--- NOTE | 2018-12-04 12:00 | RAD ---
Date of service: 12/04/2018 HISTORY: verify right PICC COMPARISON: 11/25/2018. FINDINGS: The right PICC line terminates in the SVC. LUNGS: The lungs are well inflated and clear. PLEURA: No pleural effusions or pneumothorax. CARDIOVASCULAR: The heart is normal in size. No aortic atherosclerotic calcifications present. OSSEOUS STRUCTURES: Within normal limits for the patient's age. VISUALIZED UPPER ABDOMEN: Normal. OTHER FINDINGS: None. IMPRESSION: No active pulmonary disease. Right PICC line terminates in the SVC.
--- NOTE | 2018-12-04 14:20 | PN ---
DATE: 12/04/2018 ENDOCRINOLOGY FOLLOWUP NOTE LOCATION: Room 371. SUBJECTIVE: This is a 48-year-old female with recent uncontrolled type 2 insulin-requiring diabetes, now being followed closely for metabolic management. Her glycemic levels are fluctuating, but much improved at this time and the glucose levels have ranged from 110 to 132 and 168 mg/dL. LABORATORY DATA: Her chemistry showed a BUN of 8, sodium 139, potassium 3.8, chloride 104, CO2 of 29, glucose 106, and creatinine 0.6. PLAN: So at this time, we will continue the dual oral hypoglycemic drug therapy as given with Glipizide given as 10 mg b.i.d. before meals and Januvia given as 100 mg once daily in the morning as ordered. We will obtain serial chemistries and supplement accordingly as needed. We will follow this. Gwen Alford MD
--- NOTE | 2018-12-04 17:49 | PN ---
DATE: 12/04/2018 SUBJECTIVE: The patient is seen and examined at bedside. The patient offers no new complaints other than right lower extremity pain. PHYSICAL EXAMINATION: GENERAL: A middle-aged female lying in bed, in no acute distress. VITAL SIGNS: Blood pressure 98/60, pulse 72, respirations 20, temperature 98 degrees Fahrenheit, O2 saturation is 97% on room air. HEENT: Pupils are equal, round, and reactive to light and accommodation. Extraocular muscles are intact. No icterus. Positive pallor. No oral thrush. No pharyngeal congestion. NECK: Supple. No JVD. LUNGS: Bilateral vesicular breath sounds. No wheezing. No rhonchi. CARDIOVASCULAR SYSTEM: S1 and S2 present and regular. ABDOMEN: Soft and nontender. Bowel sounds present. No guarding. No rigidity. No rebound tenderness noted. CENTRAL NERVOUS SYSTEM: Alert, awake and oriented x3. No focal deficits noted. EXTREMITIES: Right leg dressing in place. Minimal pedal edema. Palpable peripheral pulses. MEDICATIONS: Include Tylenol as needed, glipizide 10 mg p.o. b.i.d., heparin for DVT prophylaxis, ibuprofen as needed, morphine as needed, Percocet as needed, Protonix 40 mg daily, Zosyn 3.375 g IV every 8 hours, Januvia 100 mg daily, vancomycin 1 g IV every 12 hours. LABORATORY DATA: Labs from this morning, WBC 4.3, hemoglobin 8.6, hematocrit 27.7, platelets 211. Sodium 139, potassium 3.8, chloride 104, bicarb 29, BUN 8, creatinine 0.6, glucose 132, calcium 8.9, magnesium 1.9, ferritin 16.5, total bilirubin 0.3, AST 29, ALT 22, alkaline phosphatase 62, total protein 6.3, albumin 3.5, B12 279, folate 15.1. Biopsies are pending. ASSESSMENT AND PLAN: Middle-aged female with history of diabetes mellitus, admitted for recurrent chronic nonhealing right leg ulcer status post biopsy and debridement, waiting for biopsy report, on Zosyn and vancomycin. We will continue with current antibiotics status post PICC line placement for right leg dressing change tomorrow. We will follow up with social work associate. If cleared by Podiatry and Infectious Disease, we will plan discharging the patient to subacute rehab when bed available. We will repeat labs in a.m. We will start B12 supplementation. Yamil Horn MD
--- NOTE | 2018-12-04 18:39 | CP.PCM.PN ---
Subjective - Date & Time of Evaluation Date of Evaluation: 12/04/18 Time of Evaluation: 09:00 - Subjective Subjective: events noted IV rx in progress Objective - Vital Signs/Intake and Output Vital Signs (last 24 hours): Temp Pulse Resp BP Pulse Ox 98.9 F 84 20 100/63 99 12/04/18 16:00 12/04/18 16:00 12/04/18 16:00 12/04/18 16:00 12/04/18 16:00 Intake and Output: 12/04/18 12/04/18 06:59 18:59 Intake Total 1350 Balance 1350 - Medications Medications: Current Medications Acetaminophen (Tylenol 325mg Tab) 650 mg PO Q6 PRN PRN Reason: Pain, Mild (1-3) Cyanocobalamin (Vitamin B12 1000 Mcg/Ml Inj) 1,000 mcg IM DAILY [facility] Last Admin: 12/04/18 13:38 Dose: 1,000 mcg Ferrous Sulfate (Feosol) 325 mg PO DAILY [facility] Last Admin: 12/04/18 13:39 Dose: 325 mg Glipizide (Glucotrol) 10 mg PO ACBD [facility] Last Admin: 12/04/18 17:19 Dose: 10 mg Heparin Sodium (Porcine) (Heparin) 5,000 units SC Q12H [facility] Last Admin: 12/04/18 10:29 Dose: 5,000 units Home Med (Patient's Own Medication) 1 tab PO DAILY [facility] Last Admin: 12/04/18 10:29 Dose: 1 tab Vancomycin HCl 1 gm/ Sodium (Chloride) 250 mls @ 166.7 mls/hr IVPB Q12H [facility]; Protocol Last Admin: 12/04/18 17:18 Dose: 166.7 mls/hr Piperacillin Sod/Tazobactam (Sod 3.375 gm/ Sodium Chloride) 100 mls @ 200 mls/hr IVPB Q8H [facility]; Protocol Last Admin: 12/04/18 10:36 Dose: 200 mls/hr Ibuprofen (Motrin Tab) 400 mg PO Q8 PRN PRN Reason: Pain, moderate (4-7) Last Admin: 12/03/18 16:10 Dose: 400 mg Insulin Human Regular (Novolin R) 0 unit SC ACHS [facility]; Protocol Last Admin: 12/04/18 11:28 Dose: Not Given Morphine Sulfate (Morphine) 1 mg IV Q6 PRN PRN Reason: Pain, severe (8-10) Last Admin: 12/04/18 17:28 Dose: 1 mg Oxycodone/Acetaminophen (Percocet 5/325 Mg Tab) 2 tab PO Q6H PRN PRN Reason: Pain, moderate (4-7) Stop: 12/07/18 07:38 Last Admin: 12/04/18 11:28 Dose: 2 tab Pantoprazole Sodium (Protonix Ec Tab) 40 mg PO DAILY [facility] Last Admin: 12/04/18 10:29 Dose: 40 mg Prednisolone Acetate (Pred Forte 1% Opht Susp) 1 ml OS TID [facility] Last Admin: 12/04/18 13:48 Dose: 1 drop Sitagliptin Phosphate (Januvia) 100 mg PO DAILY [facility] Last Admin: 12/04/18 10:29 Dose: 100 mg - Labs Labs: 12/04/18 08:20 12/04/18 08:20 PT 13.0 SECONDS (9.7-12.2) H 11/30/18 07:19 INR 1.2 11/30/18 07:19 APTT 29 SECONDS (21-34) 11/30/18 07:19 - Constitutional Appears: Non-toxic, No Acute Distress, Chronically Ill - Head Exam Head Exam: ATRAUMATIC, NORMAL INSPECTION, NORMOCEPHALIC - Eye Exam Eye Exam: EOMI, Normal appearance, PERRL Pupil Exam: NORMAL ACCOMODATION, PERRL - ENT Exam ENT Exam: Mucous Membranes Moist, Normal Exam - Neck Exam Neck Exam: Full ROM, Normal Inspection. absent: Lymphadenopathy - Respiratory Exam Respiratory Exam: Clear to Ausculation Bilateral, NORMAL BREATHING PATTERN - Cardiovascular Exam Cardiovascular Exam: REGULAR RHYTHM, +S1, +S2. absent: Murmur - GI/Abdominal Exam GI & Abdominal Exam: Soft, Normal Bowel Sounds. absent: Tenderness - Rectal Exam Rectal Exam: Deferred - Exam Exam: NORMAL INSPECTION - Extremities Exam Extremities Exam: Full ROM, Normal Capillary Refill, Normal Inspection. absent: Joint Swelling, Pedal Edema - Back Exam Back Exam: NORMAL INSPECTION - Neurological Exam Neurological Exam: Alert, Awake, CN II-XII Intact, Normal Gait, Oriented x3 - Psychiatric Exam Psychiatric exam: Normal Affect, Normal Mood - Skin Skin Exam: Dry, Intact, Normal Color, Warm Assessment and Plan (1) Abscess of right lower extremity excluding foot Status: Acute (2) Diabetes mellitus type 2 in nonobese Status: Acute - Assessment and Plan (Free Text) Assessment: cont IV rx and wound care will check Vanco levels await Path
[2018-12-05] MEDS: Piperacillin/Tazobact 3.375 GM in Sodium Chloride 100 ML IVPB SCH ×3 (02:06→17:08)
[2018-12-05] MEDS: (Novolin R) Insulin Human Regular 100 units/ml vial SC SCH ×4 (08:11→21:26)
[2018-12-05 08:16] VITALS: RESP 20
[2018-12-05] MEDS: Pantoprazole 40 mg EC Tab PO SCH (09:41)
[2018-12-05] MEDS: JARDIANCE 10MG PO SCH (09:42)
--- NOTE | 2018-12-05 09:44 | CP.PCM.PN ---
Subjective - Date & Time of Evaluation Date of Evaluation: 12/05/18 Time of Evaluation: 09:43 - Subjective Subjective: Progress note dictated # [id number] Objective - Vital Signs/Intake and Output Vital Signs (last 24 hours): Temp Pulse Resp BP Pulse Ox 98.7 F 81 20 109/70 97 12/05/18 08:14 12/05/18 08:14 12/05/18 08:14 12/05/18 08:14 12/05/18 08:14 Intake and Output: 12/05/18 12/05/18 06:59 18:59 Intake Total 1700 Balance 1700 - Medications Medications: Current Medications Acetaminophen (Tylenol 325mg Tab) 650 mg PO Q6 PRN PRN Reason: Pain, Mild (1-3) Cyanocobalamin (Vitamin B12 1000 Mcg/Ml Inj) 1,000 mcg IM DAILY [facility] Last Admin: 12/04/18 13:38 Dose: 1,000 mcg Ferrous Sulfate (Feosol) 325 mg PO DAILY [facility] Last Admin: 12/04/18 13:39 Dose: 325 mg Glipizide (Glucotrol) 10 mg PO ACBD [facility] Last Admin: 12/05/18 08:10 Dose: Not Given Heparin Sodium (Porcine) (Heparin) 5,000 units SC Q12H [facility] Last Admin: 12/04/18 22:25 Dose: Not Given Home Med (Patient's Own Medication) 1 tab PO DAILY [facility] Last Admin: 12/04/18 10:29 Dose: 1 tab Vancomycin HCl 1 gm/ Sodium (Chloride) 250 mls @ 166.7 mls/hr IVPB Q12H [facility]; Protocol Last Admin: 12/05/18 04:06 Dose: 166.7 mls/hr Piperacillin Sod/Tazobactam (Sod 3.375 gm/ Sodium Chloride) 100 mls @ 200 mls/hr IVPB Q8H [facility]; Protocol Last Admin: 12/05/18 02:06 Dose: 200 mls/hr Ibuprofen (Motrin Tab) 400 mg PO Q8 PRN PRN Reason: Pain, moderate (4-7) Last Admin: 12/04/18 20:42 Dose: 400 mg Insulin Human Regular (Novolin R) 0 unit SC ACHS [facility]; Protocol Last Admin: 12/05/18 08:11 Dose: Not Given Morphine Sulfate (Morphine) 1 mg IV Q6 PRN PRN Reason: Pain, severe (8-10) Last Admin: 12/04/18 17:28 Dose: 1 mg Oxycodone/Acetaminophen (Percocet 5/325 Mg Tab) 2 tab PO Q6H PRN PRN Reason: Pain, moderate (4-7) Stop: 12/07/18 07:38 Last Admin: 12/04/18 11:28 Dose: 2 tab Pantoprazole Sodium (Protonix Ec Tab) 40 mg PO DAILY [facility] Last Admin: 12/04/18 10:29 Dose: 40 mg Prednisolone Acetate (Pred Forte 1% Opht Susp) 1 ml OS TID [facility] Last Admin: 12/04/18 18:00 Dose: 1 drop Sitagliptin Phosphate (Januvia) 100 mg PO DAILY [facility] Last Admin: 12/04/18 10:29 Dose: 100 mg - Labs Labs: 12/04/18 08:20 12/04/18 08:20 PT 13.0 SECONDS (9.7-12.2) H 11/30/18 07:19 INR 1.2 11/30/18 07:19 APTT 29 SECONDS (21-34) 11/30/18 07:19
[2018-12-05] MEDS: PrednisoLONE 1% Opht Susp(5 ml) OS SCH ×3 (09:46→17:12)
[2018-12-05] MEDS: Oxycodone/Acetaminophen 5/325 mg Tab PO PRN ×2 (09:53→17:55)
--- NOTE | 2018-12-05 12:21 | PN ---
DATE: 12/05/2018 LOCATION: Room 371. SUBJECTIVE: This is a 48-year-old female with recent uncontrolled type 2 diabetes, presenting here with a nonhealing right lower extremity neuropathic ulceration and underwent local debridement with ongoing IV antibiotic management as given. Her glycemic levels are fluctuating, but improved as noted overnight and glucose values have ranged from 87 to 109 and 160 mg/dL. Her chemistry showed a BUN of 8, sodium 139, potassium 3.8, chloride 104, CO2 of 29, glucose 106 and creatinine 0.6. So, at this time, we will continue the same dual oral hypoglycemic drug therapy given in combination with Januvia at 100 mg once daily and glipizide at 10 mg b.i.d. before meals as ordered. We will continue also the low dose correction scale using regular insulin as given. We will follow and advise accordingly. Gwne Alford MD
[2018-12-05 14:00] LABS: IMMUNOGLOBULIN A 373.9 mg/dL (70.0-400.0); IMMUNOGLOBULIN M 167.1 mg/dL (40.0-230.0)
--- NOTE | 2018-12-05 16:44 | CP.PCM.PN ---
Subjective - Date & Time of Evaluation Date of Evaluation: 12/05/18 Time of Evaluation: 16:44 - Subjective Subjective: Podiatry Progress Note - Dr. Orta Patient seen and evaluated this morning at bedside with Dr. Orta. Patient is POD#3 R lower extremity lower leg wound debridement with biopsy. She reports significant pain to her leg at this time. No acute event overnight. Denies nausea/vomiting/fever/shortness of breath/chest pain. Objective - Vital Signs/Intake and Output Vital Signs (last 24 hours): Temp Pulse Resp BP Pulse Ox 97.9 F 81 20 100/61 97 12/05/18 15:25 12/05/18 15:25 12/05/18 15:25 12/05/18 15:25 12/05/18 15:25 Intake and Output: 12/05/18 12/05/18 06:59 18:59 Intake Total 1700 Balance 1700 - Medications Medications: Current Medications Acetaminophen (Tylenol 325mg Tab) 650 mg PO Q6 PRN PRN Reason: Pain, Mild (1-3) Cyanocobalamin (Vitamin B12 1000 Mcg/Ml Inj) 1,000 mcg IM DAILY [facility] Last Admin: 12/05/18 09:43 Dose: 1,000 mcg Ferrous Sulfate (Feosol) 325 mg PO DAILY [facility] Last Admin: 12/05/18 09:41 Dose: 325 mg Glipizide (Glucotrol) 10 mg PO ACBD [facility] Last Admin: 12/05/18 09:42 Dose: 10 mg Heparin Sodium (Porcine) (Heparin) 5,000 units SC Q12H [facility] Last Admin: 12/05/18 09:44 Dose: 5,000 units Home Med (Patient's Own Medication) 1 tab PO DAILY [facility] Last Admin: 12/05/18 09:42 Dose: 1 tab Vancomycin HCl 1 gm/ Sodium (Chloride) 250 mls @ 166.7 mls/hr IVPB Q12H [facility]; Protocol Last Admin: 12/05/18 16:11 Dose: 166.7 mls/hr Piperacillin Sod/Tazobactam (Sod 3.375 gm/ Sodium Chloride) 100 mls @ 200 mls/hr IVPB Q8H [facility]; Protocol Last Admin: 12/05/18 09:41 Dose: 200 mls/hr Ibuprofen (Motrin Tab) 400 mg PO Q8 PRN PRN Reason: Pain, moderate (4-7) Last Admin: 12/04/18 20:42 Dose: 400 mg Insulin Human Regular (Novolin R) 0 unit SC ACHS [facility]; Protocol Last Admin: 12/05/18 16:34 Dose: Not Given Morphine Sulfate (Morphine) 1 mg IV Q6 PRN PRN Reason: Pain, severe (8-10) Last Admin: 12/04/18 17:28 Dose: 1 mg Oxycodone/Acetaminophen (Percocet 5/325 Mg Tab) 2 tab PO Q6H PRN PRN Reason: Pain, moderate (4-7) Stop: 12/07/18 07:38 Last Admin: 12/05/18 09:53 Dose: 2 tab Pantoprazole Sodium (Protonix Ec Tab) 40 mg PO DAILY [facility] Last Admin: 12/05/18 09:41 Dose: 40 mg Prednisolone Acetate (Pred Forte 1% Opht Susp) 1 ml OS TID [facility] Last Admin: 12/05/18 13:42 Dose: 1 drop Sitagliptin Phosphate (Januvia) 100 mg PO DAILY [facility] Last Admin: 12/05/18 09:41 Dose: 100 mg - Labs Labs: 12/04/18 08:20 12/04/18 08:20 PT 13.0 SECONDS (9.7-12.2) H 11/30/18 07:19 INR 1.2 11/30/18 07:19 APTT 29 SECONDS (21-34) 11/30/18 07:19 - Constitutional Appears: Non-toxic - Head Exam Head Exam: ATRAUMATIC, NORMOCEPHALIC - Extremities Exam Additional comments: RLE focused VASC: DP and PT pulses weakly palpable 1/4. CFT <3 seconds to all digits. Temperature gradient warm to warm b/l. No increase in warmth noted periwound. NEURO: Gross and protective sensation intact. DERM: Ulceration measuring approximately 7 x 15 x 0.1 cm noted to right lower leg just proximal to ankle joint encompassing 75% of leg circumference. Wound is 20% fibrotic and 80% granular with rolled edges periwound; serosanguinous drainage present; no purulence; no fluctuance; no malodor. ORTHO: Severe pain on palpation to right leg wound. - Neurological Exam Neurological Exam: Alert, Awake, Oriented x3 - Psychiatric Exam Psychiatric exam: Normal Affect, Normal Mood - Skin Skin Exam: Warm Assessment and Plan - Assessment and Plan (Free Text) Assessment: 48 year old female patient POD#3 R lower extremity lower leg wound debridement with biopsy. Plan: Patient seen and evaluated with attending with Dr. Marivel Abdullahi leg wound culture: pseudomonas aeruginosa and staph epidermidis Mycobacterial culture pending Acid-fast bacilli stain - negative Right leg fungal smear - negative Intra-op pathology obtained x5, f/u Heme/Onc consulted r/o malignancy ID recs appreciated - may need fci abx, awaiting biopsy -Continue abx; vanc zosyn sensitive WBAT bilateral LE Continue pain management Will continue to follow
--- NOTE | 2018-12-05 18:12 | PN ---
DATE: 12/05/2018 SUBJECTIVE: The patient is seen and examined at bedside. The patient is undergoing left lower extremity dressing, complaining of severe pain. Denies any other new complaints. PHYSICAL EXAMINATION: GENERAL: A middle-aged female, in bed, in [id number] distress from pain. VITAL SIGNS: Blood pressure is 109/70, pulse 81, respirations 20, temperature 98.7 degrees Fahrenheit, and O2 saturations 97% on room air. HEENT: Pupils equal, round and reacting to light and accommodation. Extraocular muscles intact. No icterus, no pallor, no oral thrush, and no pharyngeal congestion. NECK: Supple, no JVD. LUNGS: Bilateral vesicular breath sounds. No wheezing, no rhonchi. CARDIOVASCULAR SYSTEM: S1 and S2 present, regular. ABDOMEN: Soft and nontender, bowel sounds present. No guarding, no rigidity, and no rebound tenderness noted. CENTRAL NERVOUS SYSTEM: Awake, alert, and oriented x 3, no focal deficits noted. EXTREMITIES: Right lower extremity with extensive nonhealing ulcer 8 cm x possibly 10 cm extending into the calf region. Palpable peripheral pulses. MEDICATIONS: Include Tylenol, B12, Feosol 325 mg daily, glipizide 10 mg p.o. b.i.d., subcutaneous heparin for DVT prophylaxis, Jardiance 10 mg daily, morphine as needed, Percocet as needed, Protonix 40 mg daily, Zosyn 3.375 g IV every 8 hours, Januvia 100 mg daily, and vancomycin 1 g IV every 12 hours. LABORATORY DATA: No new labs from today. Accu-Cheks 132,160, 109, 87, and 116. ASSESSMENT AND PLAN: A middle-aged female with history of diabetes mellitus, admitted for recurrent right lower extremity nonhealing ulcer, status post debridement and nerve block and biopsy. Biopsy consistent with acute granulation tissue and reacting changes. Continue with wound care, continue with Zosyn and vancomycin as per Dr. Cruz. If cleared by Infectious Disease and Podiatry we will plan discharging the patient to subacute rehab when bed available. Yamil Horn MD
[2018-12-06] MEDS: Oxycodone/Acetaminophen 5/325 mg Tab PO PRN ×4 (00:54→22:10)
[2018-12-06] MEDS: Piperacillin/Tazobact 3.375 GM in Sodium Chloride 100 ML IVPB SCH ×2 (01:41→09:34)
[2018-12-06] MEDS: (Novolin R) Insulin Human Regular 100 units/ml vial SC SCH ×4 (07:44→21:25)
[2018-12-06 08:36] LABS: EOS # 0.1 K/uL (0.0-0.7); HEMOGLOBIN 8.8 g/dL (11.0-16.0); LYMPH # 0.8 K/uL (1.0-4.3); LYMPH % 17.1 % (20.0-40.0); MEAN CELL VOLUME 78.8 fL (81.0-99.0); MEAN CORPUSCULAR HEMOGLOBIN 25.9 pg (27.0-31.0); MEAN CORPUSCULAR HGB CONC 32.9 g/dL (33.0-37.0); MEAN PLATELET VOLUME 9.2 fL (7.2-11.7); MONO # 1.2 K/uL (0.0-0.8); MONO % 25.8 % (0.0-10.0); NEUT # 2.6 K/uL (1.8-7.0); NEUT % 54.1 % (50.0-75.0); NRBC % 0.2 % (0.0-2.0); PLATELET COUNT 217 K/uL (130-400); RBC 3.38 Mil/uL (3.80-5.20); RED CELL DISTRIBUTION WIDTH 18.4 % (11.5-14.5); WHITE BLOOD COUNT 4.7 K/uL (4.8-10.8)
[2018-12-06 08:57] LABS: ALB/GLOB RATIO 1.1 (1.0-2.1); ALBUMIN 3.5 g/dL (3.5-5.0); ALT/SGPT 25 U/L (9-52); AST/SGOT 42 U/L (14-36); BLOOD UREA NITROGEN 8 mg/dL (7-17); GFR NON-AFRICAN AMERICAN > 60
[2018-12-06] MEDS: JARDIANCE 10MG PO SCH (09:36)
[2018-12-06] MEDS: PrednisoLONE 1% Opht Susp(5 ml) OS SCH ×3 (09:42→18:10)
[2018-12-06] MEDS: Pantoprazole 40 mg EC Tab PO SCH (10:08)
[2018-12-06 11:25] LABS: ANISOCYTOSIS SLIGHT; EOSINOPHIL 4 % (0-4); LYMPHOCYTE 24 % (20-40); MONOCYTE 13 % (0-10); NEUTROPHIL 59 % (50-75); PLATELET ESTIMATE NORMAL (NORMAL); POIKILOCYTOSIS SLIGHT; TOTAL CELLS COUNTED 100
[2018-12-06 11:26] LABS: HYPOCHROMIC SLIGHT; MICROCYTOSIS SLIGHT; OVALOCYTES SLIGHT; POLYCHROMIC SLIGHT; TEARDROP CELLS SLIGHT
--- NOTE | 2018-12-06 12:32 | CP.PCM.PN ---
Subjective - Date & Time of Evaluation Date of Evaluation: 12/06/18 Time of Evaluation: 12:32 - Subjective Subjective: Progress note dictated #[id number] Objective - Vital Signs/Intake and Output Vital Signs (last 24 hours): Temp Pulse Resp BP Pulse Ox 98.1 F 78 20 92/60 L 97 12/06/18 08:00 12/06/18 08:00 12/06/18 08:00 12/06/18 08:00 12/06/18 08:00 Intake and Output: 12/06/18 12/06/18 06:59 18:59 Intake Total 750 540 Balance 750 540 - Medications Medications: Current Medications Acetaminophen (Tylenol 325mg Tab) 650 mg PO Q6 PRN PRN Reason: Pain, Mild (1-3) Cyanocobalamin (Vitamin B12 1000 Mcg/Ml Inj) 1,000 mcg IM DAILY [facility] Last Admin: 12/06/18 09:38 Dose: 1,000 mcg Ferrous Sulfate (Feosol) 325 mg PO DAILY [facility] Last Admin: 12/06/18 09:36 Dose: 325 mg Glipizide (Glucotrol) 10 mg PO ACBD [facility] Last Admin: 12/06/18 09:36 Dose: 10 mg Home Med (Patient's Own Medication) 1 tab PO DAILY [facility] Last Admin: 12/06/18 09:36 Dose: 1 tab Ibuprofen (Motrin Tab) 400 mg PO Q8 PRN PRN Reason: Pain, moderate (4-7) Last Admin: 12/04/18 20:42 Dose: 400 mg Insulin Human Regular (Novolin R) 0 unit SC [facility]; Protocol Last Admin: 12/06/18 12:15 Dose: Not Given Morphine Sulfate (Morphine) 1 mg IV Q6 PRN PRN Reason: Pain, severe (8-10) Last Admin: 12/04/18 17:28 Dose: 1 mg Oxycodone/Acetaminophen (Percocet 5/325 Mg Tab) 2 tab PO Q6H PRN PRN Reason: Pain, moderate (4-7) Stop: 12/07/18 07:38 Last Admin: 12/06/18 06:47 Dose: 2 tab Pantoprazole Sodium (Protonix Ec Tab) 40 mg PO DAILY [facility] Last Admin: 12/06/18 10:08 Dose: 40 mg Prednisolone Acetate (Pred Forte 1% Opht Susp) 1 ml OS TID [facility] Last Admin: 12/06/18 09:42 Dose: 1 drop Sitagliptin Phosphate (Januvia) 100 mg PO DAILY [facility] Last Admin: 12/06/18 09:36 Dose: 100 mg - Labs Labs: 12/06/18 08:15 12/06/18 08:15 PT 13.0 SECONDS (9.7-12.2) H 11/30/18 07:19 INR 1.2 11/30/18 07:19 APTT 29 SECONDS (21-34) 11/30/18 07:19
--- NOTE | 2018-12-06 14:43 | CP.PCM.PN ---
Subjective - Date & Time of Evaluation Date of Evaluation: 12/06/18 Time of Evaluation: 08:00 - Subjective Subjective: c/o pain nad Objective - Vital Signs/Intake and Output Vital Signs (last 24 hours): Temp Pulse Resp BP Pulse Ox 98.1 F 78 20 92/60 L 97 12/06/18 08:00 12/06/18 08:00 12/06/18 08:00 12/06/18 08:00 12/06/18 08:00 Intake and Output: 12/06/18 12/06/18 06:59 18:59 Intake Total 750 540 Balance 750 540 - Medications Medications: Current Medications Acetaminophen (Tylenol 325mg Tab) 650 mg PO Q6 PRN PRN Reason: Pain, Mild (1-3) Cyanocobalamin (Vitamin B12 1000 Mcg/Ml Inj) 1,000 mcg IM DAILY [facility] Last Admin: 12/06/18 09:38 Dose: 1,000 mcg Ferrous Sulfate (Feosol) 325 mg PO DAILY [facility] Last Admin: 12/06/18 09:36 Dose: 325 mg Glipizide (Glucotrol) 10 mg PO ACBD [facility] Last Admin: 12/06/18 09:36 Dose: 10 mg Home Med (Patient's Own Medication) 1 tab PO DAILY [facility] Last Admin: 12/06/18 09:36 Dose: 1 tab Ibuprofen (Motrin Tab) 400 mg PO Q8 PRN PRN Reason: Pain, moderate (4-7) Last Admin: 12/04/18 20:42 Dose: 400 mg Insulin Human Regular (Novolin R) 0 unit SC [facility]; Protocol Last Admin: 12/06/18 12:15 Dose: Not Given Morphine Sulfate (Morphine) 1 mg IV Q6 PRN PRN Reason: Pain, severe (8-10) Last Admin: 12/04/18 17:28 Dose: 1 mg Oxycodone/Acetaminophen (Percocet 5/325 Mg Tab) 2 tab PO Q6H PRN PRN Reason: Pain, moderate (4-7) Stop: 12/07/18 07:38 Last Admin: 12/06/18 14:15 Dose: 2 tab Pantoprazole Sodium (Protonix Ec Tab) 40 mg PO DAILY [facility] Last Admin: 12/06/18 10:08 Dose: 40 mg Prednisolone Acetate (Pred Forte 1% Opht Susp) 1 ml OS TID [facility] Last Admin: 12/06/18 13:55 Dose: 1 drop Sitagliptin Phosphate (Januvia) 100 mg PO DAILY [facility] Last Admin: 12/06/18 09:36 Dose: 100 mg - Labs Labs: 12/06/18 08:15 12/06/18 08:15 PT 13.0 SECONDS (9.7-12.2) H 11/30/18 07:19 INR 1.2 11/30/18 07:19 APTT 29 SECONDS (21-34) 11/30/18 07:19 - Constitutional Appears: Non-toxic, No Acute Distress, Chronically Ill - Head Exam Head Exam: ATRAUMATIC, NORMAL INSPECTION, NORMOCEPHALIC - Eye Exam Eye Exam: EOMI, Normal appearance, PERRL Pupil Exam: NORMAL ACCOMODATION, PERRL - ENT Exam ENT Exam: Mucous Membranes Moist, Normal Exam - Neck Exam Neck Exam: Full ROM, Normal Inspection. absent: Lymphadenopathy - Respiratory Exam Respiratory Exam: Clear to Ausculation Bilateral, NORMAL BREATHING PATTERN - Cardiovascular Exam Cardiovascular Exam: REGULAR RHYTHM, +S1, +S2. absent: Murmur - GI/Abdominal Exam GI & Abdominal Exam: Soft, Normal Bowel Sounds. absent: Tenderness - Rectal Exam Rectal Exam: Deferred - Exam Exam: NORMAL INSPECTION - Extremities Exam Extremities Exam: Full ROM, Normal Capillary Refill, Normal Inspection. absent: Joint Swelling, Pedal Edema - Back Exam Back Exam: NORMAL INSPECTION - Neurological Exam Neurological Exam: Alert, Awake, CN II-XII Intact, Normal Gait, Oriented x3 - Psychiatric Exam Psychiatric exam: Normal Affect, Normal Mood - Skin Skin Exam: Dry, Intact, Normal Color, Warm Assessment and Plan (1) Abscess of right lower extremity excluding foot Status: Acute (2) Diabetes mellitus type 2 in nonobese Status: Acute - Assessment and Plan (Free Text) Assessment: cont iv rx and wound care await bx
[2018-12-06] MEDS: Piperacill/Tazo 3.375gm in Dex 3.375 GM/50 ML BAG IVPB SCH (19:47)
[2018-12-06] MEDS: Vancomycin 1 gm/NS 200 ml 1 GM/200 ML BAG IVPB SCH (21:27)
--- NOTE | 2018-12-06 22:31 | PN ---
DATE: 12/06/2018 SUBJECTIVE: The patient is seen and examined at bedside. The patient is feeling slightly better today as the pain improved. Denies any other new complaints. PHYSICAL EXAMINATION: GENERAL: Middle-aged female, lying in bed, in no acute distress. VITAL SIGNS: Blood pressure 92/60, pulse 78, respiration 20, temperature 98.9 degrees Fahrenheit, O2 sat is 97% on room air. HEENT: Pupils equal, round, and reacting to light and accommodation. Extraocular muscles intact. No icterus. No pallor. No oral thrush. No pharyngeal congestion. NECK: Supple. No JVD. LUNGS: Bilateral vesicular breath sounds. No wheezing. No rhonchi. CARDIOVASCULAR SYSTEM: S1 and S2 present, regular. ABDOMEN: Soft and nontender. Bowel sounds present. No guarding. No rigidity. No rebound tenderness noted. CENTRAL NERVOUS SYSTEM: Alert, awake and oriented x3. No focal deficits noted. EXTREMITIES: Right foot dressing in place. MEDICATIONS: Include Tylenol as needed, vitamin B12 1000 mcg IM daily, Feosol 325 mg p.o. daily, glipizide 10 mg p.o. b.i.d., Motrin as needed, morphine as needed, Percocet as needed, Protonix 40 mg daily, Januvia 100 mg p.o. daily, Zosyn 3.375 g IV every 8 hours, vancomycin 1 g IV every 12 hours. ASSESSMENT AND PLAN: Middle-aged female with history of diabetes mellitus, chronic nonhealing right lower extremity ulcer, status post debridement and biopsy. Continue with current antibiotics. Follow up with Podiatry and Infectious Disease. When cleared by Podiatry and when bed available, the patient may be transferred to subacute rehabilitation. Yamil Horn MD
[2018-12-07] MEDS: Piperacill/Tazo 3.375gm in Dex 3.375 GM/50 ML BAG IVPB SCH ×3 (03:51→21:04)
[2018-12-07] MEDS: Oxycodone/Acetaminophen 5/325 mg Tab PO PRN ×2 (04:10→19:10)
--- NOTE | 2018-12-07 07:05 | CP.PCM.PN ---
Subjective - Date & Time of Evaluation Date of Evaluation: 12/07/18 Time of Evaluation: 06:50 - Subjective Subjective: Flako Garcia D.O. PGY-3, Internal Medicine Resident, Endocrinology Progress Note 48 year old female with a known PMH of DM2, HTN, multiple ulcers, RA, who presented for complaints of non-healing right leg ulcer. Endocrinology consultation was requested due to uncontrolled DM. Patient was seen and examined at bedside. Patient states that she is somewhat upset that she cannot put weight on her heel yet. Eager to get back to work. Objective - Vital Signs/Intake and Output Vital Signs (last 24 hours): Temp Pulse Resp BP Pulse Ox 97.7 F 90 20 99/62 L 95 12/07/18 00:00 12/07/18 00:00 12/07/18 00:00 12/07/18 00:00 12/07/18 00:00 Intake and Output: 12/07/18 12/07/18 06:59 18:59 Intake Total 800 Balance 800 - Medications Medications: Current Medications Acetaminophen (Tylenol 325mg Tab) 650 mg PO Q6 PRN PRN Reason: Pain, Mild (1-3) Cyanocobalamin (Vitamin B12 1000 Mcg/Ml Inj) 1,000 mcg IM DAILY [facility] Last Admin: 12/06/18 09:38 Dose: 1,000 mcg Ferrous Sulfate (Feosol) 325 mg PO DAILY [facility] Last Admin: 12/06/18 09:36 Dose: 325 mg Glipizide (Glucotrol) 10 mg PO ACBD [facility] Last Admin: 12/06/18 17:10 Dose: 10 mg Home Med (Patient's Own Medication) 1 tab PO DAILY [facility] Last Admin: 12/06/18 09:36 Dose: 1 tab Vancomycin/Sodium Chloride (Vancomycin 1 Gm/Ns 200 Ml) 1 gm in 200 mls @ 133 mls/hr IVPB Q12H [facility]; Protocol Stop: 12/11/18 22:01 Last Admin: 12/06/18 21:27 Dose: 133 mls/hr Piperacillin Sod/Tazobactam Sod (Zosyn 3.375 Gm Iv Premix) 3.375 gm in 50 mls @ 100 mls/hr IVPB Q8H [facility]; Protocol Last Admin: 12/07/18 03:51 Dose: 100 mls/hr Ibuprofen (Motrin Tab) 400 mg PO Q8 PRN PRN Reason: Pain, moderate (4-7) Last Admin: 12/04/18 20:42 Dose: 400 mg Insulin Human Regular (Novolin R) 0 unit SC [facility]; Protocol Last Admin: 12/06/18 21:25 Dose: Not Given Morphine Sulfate (Morphine) 1 mg IV Q6 PRN PRN Reason: Pain, severe (8-10) Last Admin: 12/04/18 17:28 Dose: 1 mg Oxycodone/Acetaminophen (Percocet 5/325 Mg Tab) 2 tab PO Q6H PRN PRN Reason: Pain, moderate (4-7) Stop: 12/07/18 07:38 Last Admin: 12/07/18 04:10 Dose: 2 tab Pantoprazole Sodium (Protonix Ec Tab) 40 mg PO DAILY [facility] Last Admin: 12/06/18 10:08 Dose: 40 mg Prednisolone Acetate (Pred Forte 1% Opht Susp) 1 ml OS TID [facility] Last Admin: 12/06/18 18:10 Dose: 1 drop Sitagliptin Phosphate (Januvia) 100 mg PO DAILY [facility] Last Admin: 12/06/18 09:36 Dose: 100 mg - Labs Labs: 12/06/18 08:15 12/06/18 08:15 PT 13.0 SECONDS (9.7-12.2) H 11/30/18 07:19 INR 1.2 11/30/18 07:19 APTT 29 SECONDS (21-34) 11/30/18 07:19 - Constitutional Appears: Non-toxic, No Acute Distress - Head Exam Head Exam: ATRAUMATIC, NORMOCEPHALIC - Eye Exam Eye Exam: EOMI. absent: Scleral icterus - ENT Exam ENT Exam: Mucous Membranes Moist, Normal Oropharynx - Neck Exam Neck Exam: Normal Inspection - Respiratory Exam Respiratory Exam: absent: Rhonchi, Wheezes - Cardiovascular Exam Cardiovascular Exam: +S1, +S2 - GI/Abdominal Exam GI & Abdominal Exam: Soft - Extremities Exam Additional comments: leg ulcer on R, wrapped - Neurological Exam Neurological Exam: Alert, Awake, Orientedx4 - Psychiatric Exam Psychiatric exam: Normal Affect, Normal Mood - Skin Skin Exam: Dry, Warm Assessment and Plan - Assessment and Plan (Free Text) Assessment: 48 year old female with a known PMH of DM2, HTN, multiple ulcers, RA, who presented for complaints of non-healing right leg ulcer. Endocrinology consultation was requested due to uncontrolled DM. Plan: 1. Uncontrolled DM type 2 with neuropathy Sugar control markedly improved since being admitted Blood sugars last 24 hrs 87-145 Continue accuchecks Continue jardiance 10mg PO QD, januvia 100mg PO QD,and glipizide 10mg PO ACBD 2. Nonhealing neuropathic ulceration of right leg Podiatry and ID following Patient was seen and examined and case to be discussed with attending physician Dr. Alford.
[2018-12-07] MEDS: (Novolin R) Insulin Human Regular 100 units/ml vial SC SCH ×4 (08:14→21:42)
[2018-12-07] MEDS: JARDIANCE 10MG PO SCH (10:12)
[2018-12-07] MEDS: Pantoprazole 40 mg EC Tab PO SCH (10:13)
[2018-12-07] MEDS: PrednisoLONE 1% Opht Susp(5 ml) OS SCH ×3 (10:14→18:03)
[2018-12-07] MEDS: Vancomycin 1 gm/NS 200 ml 1 GM/200 ML BAG IVPB SCH ×2 (10:15→21:46)
--- NOTE | 2018-12-07 11:30 | CP.PCM.PN ---
Subjective - Date & Time of Evaluation Date of Evaluation: 12/07/18 Time of Evaluation: 11:30 - Subjective Subjective: Progress note dictated #[id number] Objective - Vital Signs/Intake and Output Vital Signs (last 24 hours): Temp Pulse Resp BP Pulse Ox 97.8 F 74 20 94/55 L 95 12/07/18 07:00 12/07/18 07:00 12/07/18 07:00 12/07/18 07:00 12/07/18 07:00 Intake and Output: 12/07/18 12/07/18 06:59 18:59 Intake Total 800 Balance 800 - Medications Medications: Current Medications Acetaminophen (Tylenol 325mg Tab) 650 mg PO Q6 PRN PRN Reason: Pain, Mild (1-3) Cyanocobalamin (Vitamin B12 1000 Mcg/Ml Inj) 1,000 mcg IM DAILY [facility] Last Admin: 12/07/18 10:14 Dose: 1,000 mcg Ferrous Sulfate (Feosol) 325 mg PO DAILY [facility] Last Admin: 12/07/18 10:13 Dose: 325 mg Glipizide (Glucotrol) 10 mg PO ACBD [facility] Last Admin: 12/07/18 08:14 Dose: Not Given Home Med (Patient's Own Medication) 1 tab PO DAILY [facility] Last Admin: 12/07/18 10:12 Dose: 1 tab Vancomycin/Sodium Chloride (Vancomycin 1 Gm/Ns 200 Ml) 1 gm in 200 mls @ 133 mls/hr IVPB Q12H [facility]; Protocol Stop: 12/11/18 22:01 Last Admin: 12/07/18 10:15 Dose: 133 mls/hr Piperacillin Sod/Tazobactam Sod (Zosyn 3.375 Gm Iv Premix) 3.375 gm in 50 mls @ 100 mls/hr IVPB Q8H [facility]; Protocol Last Admin: 12/07/18 03:51 Dose: 100 mls/hr Ibuprofen (Motrin Tab) 400 mg PO Q8 PRN PRN Reason: Pain, moderate (4-7) Last Admin: 12/04/18 20:42 Dose: 400 mg Insulin Human Regular (Novolin R) 0 unit SC ACHS [facility]; Protocol Last Admin: 12/07/18 08:14 Dose: Not Given Morphine Sulfate (Morphine) 1 mg IV Q6 PRN PRN Reason: Pain, severe (8-10) Last Admin: 12/04/18 17:28 Dose: 1 mg Pantoprazole Sodium (Protonix Ec Tab) 40 mg PO DAILY [facility] Last Admin: 12/07/18 10:13 Dose: 40 mg Prednisolone Acetate (Pred Forte 1% Opht Susp) 1 ml OS TID [facility] Last Admin: 12/07/18 10:14 Dose: 1 drop Sitagliptin Phosphate (Januvia) 100 mg PO DAILY [facility] Last Admin: 12/07/18 10:13 Dose: 100 mg - Labs Labs: 12/06/18 08:15 12/06/18 08:15 PT 13.0 SECONDS (9.7-12.2) H 11/30/18 07:19 INR 1.2 11/30/18 07:19 APTT 29 SECONDS (21-34) 11/30/18 07:19
--- NOTE | 2018-12-07 17:10 | CP.PCM.PN ---
Subjective - Date & Time of Evaluation Date of Evaluation: 12/07/18 Time of Evaluation: 17:07 - Subjective Subjective: Podiatry Progress Note - Dr. Orta Patient seen and evaluated this morning at bedside for right leg wound. Patient is five days s/p debridement of wound with biopsy (DOS 12/02/18). Patient is AAO x 3 and NAD, resting comfortably in bed. She states that her pain is improved at this time but is still in severe pain with dressing changes. She states that the nurse just gave her 1 mg morphine for the dressing change. She denies any furt her pedal complaints at this time. Denies any acute overnight events. Denies any recent N/V/F/C/CP/SOB/D Objective - Vital Signs/Intake and Output Vital Signs (last 24 hours): Temp Pulse Resp BP Pulse Ox 98.1 F 86 20 97/60 L 97 12/07/18 15:00 12/07/18 15:00 12/07/18 15:00 12/07/18 15:00 12/07/18 15:00 Intake and Output: 12/07/18 12/07/18 06:59 18:59 Intake Total 800 730 Balance 800 730 - Medications Medications: Current Medications Acetaminophen (Tylenol 325mg Tab) 650 mg PO Q6 PRN PRN Reason: Pain, Mild (1-3) Cyanocobalamin (Vitamin B12 1000 Mcg/Ml Inj) 1,000 mcg IM DAILY [facility] Last Admin: 12/07/18 10:14 Dose: 1,000 mcg Ferrous Sulfate (Feosol) 325 mg PO DAILY [facility] Last Admin: 12/07/18 10:13 Dose: 325 mg Glipizide (Glucotrol) 10 mg PO ACBD [facility] Last Admin: 12/07/18 08:14 Dose: Not Given Home Med (Patient's Own Medication) 1 tab PO DAILY [facility] Last Admin: 12/07/18 10:12 Dose: 1 tab Vancomycin/Sodium Chloride (Vancomycin 1 Gm/Ns 200 Ml) 1 gm in 200 mls @ 133 mls/hr IVPB Q12H [facility]; Protocol Stop: 12/11/18 22:01 Last Admin: 12/07/18 10:15 Dose: 133 mls/hr Piperacillin Sod/Tazobactam Sod (Zosyn 3.375 Gm Iv Premix) 3.375 gm in 50 mls @ 100 mls/hr IVPB Q8H [facility]; Protocol Last Admin: 12/07/18 13:00 Dose: 100 mls/hr Ibuprofen (Motrin Tab) 400 mg PO Q8 PRN PRN Reason: Pain, moderate (4-7) Last Admin: 12/04/18 20:42 Dose: 400 mg Insulin Human Regular (Novolin R) 0 unit SC ACHS [facility]; Protocol Last Admin: 12/07/18 16:39 Dose: Not Given Morphine Sulfate (Morphine) 1 mg IV Q6 PRN PRN Reason: Pain, severe (8-10) Last Admin: 12/07/18 13:15 Dose: 1 mg Pantoprazole Sodium (Protonix Ec Tab) 40 mg PO DAILY [facility] Last Admin: 12/07/18 10:13 Dose: 40 mg Prednisolone Acetate (Pred Forte 1% Opht Susp) 1 ml OS TID [facility] Last Admin: 12/07/18 13:12 Dose: 1 drop Sitagliptin Phosphate (Januvia) 100 mg PO DAILY [facility] Last Admin: 12/07/18 10:13 Dose: 100 mg - Labs Labs: 12/06/18 08:15 12/06/18 08:15 PT 13.0 SECONDS (9.7-12.2) H 11/30/18 07:19 INR 1.2 11/30/18 07:19 APTT 29 SECONDS (21-34) 11/30/18 07:19 - Constitutional Appears: Well, Non-toxic, No Acute Distress - Extremities Exam Additional comments: RLE focused VASC: DP and PT pulses weakly palpable 1/4. CFT <3 seconds to all digits. Temperature gradient warm to warm b/l. No increase in warmth noted periwound. NEURO: Epicritic and protective sensation grossly intact DERM: Ulceration measuring approximately 7 x 15 x 0.1 cm noted to right lower leg just proximal to ankle joint encompassing 75% of leg circumference. Wound is 20% fibrotic and 80% granular with rolled edges; Minimal clear/yellow serosanguinous drainage present; no purulence; no fluctuance; no malodor. No clinical signs of active infection appreciated at this time ORTHO: Severe pain on palpation to right leg wound. - Neurological Exam Neurological Exam: Alert, Awake, Oriented x3 - Psychiatric Exam Psychiatric exam: Normal Affect, Normal Mood Assessment and Plan - Assessment and Plan (Free Text) Assessment: Patient seen and evaluated this morning at bedside for right leg wound Plan: Patient seen and evaluated Plan discussed with Dr. Orta Continue abx per ID Continue pain management per primary team Mycobacterial culture prelim: negative Fungal smear final: No fungal elements seen Intraoperative biopsy x 5: Fragments of skin and underlying tissue with ulcera tion, acute and chronic inflammation, granulation tissue and reactive changes Wound cleansed with normal saline and dressed with xeroform, gauze, ABD, DSD No plan for further surgical intervention at this time Podiatry will continue to follow while patient in house
--- NOTE | 2018-12-07 20:21 | PN ---
DATE: 12/07/2018 ENDOCRINOLOGY FOLLOWUP NOTE LOCATION: Room 371. SUBJECTIVE: This is a 48-year-old female with recent uncontrolled type 2 insulin-requiring diabetes, now being followed closely for metabolic management. She has ongoing IV antibiotics for a right lower extremity neuropathic ulceration and underwent a recent local debridement procedure as noted. Her glucose values overnight have ranged from 71 to 145 and 185 mg/dL. LABORATORY DATA: Her chemistries show a BUN of 8, sodium 140, potassium 4, chloride 106, CO2 26, glucose 104, and creatinine 0.6. ASSESSMENT AND PLAN: So at this time, we will continue the dual oral hypoglycemic therapy as given with Januvia at 100 mg daily and glipizide at 10 mg b.i.d. before meals as ordered. We will obtain serial chemistries and supplement accordingly as needed. We will follow. Gwen Alford MD
--- NOTE | 2018-12-07 22:35 | PN ---
DATE: 12/07/2018 SUBJECTIVE: The patient is seen and examined at bedside. The patient offers no new complaints. PHYSICAL EXAMINATION: GENERAL: Middle-aged female, lying in bed, in no acute distress. VITAL SIGNS: Blood pressure 97/60, pulse 86, respirations 20, temperature 98.1 degrees Fahrenheit, O2 saturation 97% on room air. HEENT: Pupils equal, round, and reacting to light and accommodation. Extraocular muscles intact. No icterus. No pallor. No oral thrush. No pharyngeal congestion. NECK: Supple. No JVD. LUNGS: Bilateral vesicular breath sounds. No wheezing. No rhonchi. CARDIOVASCULAR: S1 and S2 present, regular. ABDOMEN: Soft and nontender. Bowel sounds present. No guarding. No rigidity. No rebound tenderness noted. CENTRAL NERVOUS SYSTEM: Alert, awake, and oriented x3. No focal deficits noted. EXTREMITIES: No edema. Palpable peripheral pulses. Right leg with dressing in place. LABORATORY DATA: Glucose 112, 145, 71, 185, 127. MEDICATIONS: Include Tylenol as needed, vitamin B12 of 1000 mcg daily, Feosol 325 mg daily, Glucotrol 10 mg b.i.d., Motrin as needed, morphine as needed, Percocet as needed, Protonix 40 mg daily, Zosyn 3.375 g IV every 8 hours, Januvia 100 mg daily, vancomycin 1 g IV every 12 hours, prednisolone eye drops. ASSESSMENT AND PLAN: Middle-aged female with history of diabetes mellitus, admitted for recurrent non-healing ulcers of the right leg, status post debridement and biopsy. Biopsy is consistent with acute and chronic and inflammatory changes. No other findings were reported. Continue with wound care as per Podiatry. We will follow up with Dr. Cruz regarding the length of IV antibiotics and for possible subacute rehabilitation placement when bed available. Yamil Horn MD
--- NOTE | 2018-12-08 00:28 | CP.PCM.PN ---
Subjective - Date & Time of Evaluation Date of Evaluation: 12/04/18 Time of Evaluation: 19:00 - Subjective Subjective: Has right foot pain Objective - Vital Signs/Intake and Output Vital Signs (last 24 hours): Temp Pulse Resp BP Pulse Ox 98.1 F 88 20 113/70 97 12/07/18 15:00 12/07/18 19:15 12/07/18 15:00 12/07/18 19:15 12/07/18 15:00 Intake and Output: 12/07/18 12/08/18 18:59 06:59 Intake Total 730 1300 Balance 730 1300 - Medications Medications: Current Medications Acetaminophen (Tylenol 325mg Tab) 650 mg PO Q6 PRN PRN Reason: Pain, Mild (1-3) Cyanocobalamin (Vitamin B12 1000 Mcg/Ml Inj) 1,000 mcg IM DAILY [facility] Last Admin: 12/07/18 10:14 Dose: 1,000 mcg Ferrous Sulfate (Feosol) 325 mg PO DAILY [facility] Last Admin: 12/07/18 10:13 Dose: 325 mg Glipizide (Glucotrol) 10 mg PO ACBD [facility] Last Admin: 12/07/18 18:02 Dose: 10 mg Home Med (Patient's Own Medication) 1 tab PO DAILY [facility] Last Admin: 12/07/18 10:12 Dose: 1 tab Vancomycin/Sodium Chloride (Vancomycin 1 Gm/Ns 200 Ml) 1 gm in 200 mls @ 133 mls/hr IVPB Q12H [facility]; Protocol Stop: 12/11/18 22:01 Last Admin: 12/07/18 21:46 Dose: 133 mls/hr Piperacillin Sod/Tazobactam Sod (Zosyn 3.375 Gm Iv Premix) 3.375 gm in 50 mls @ 100 mls/hr IVPB Q8H [facility]; Protocol Last Admin: 12/07/18 21:04 Dose: 100 mls/hr Ibuprofen (Motrin Tab) 400 mg PO Q8 PRN PRN Reason: Pain, moderate (4-7) Last Admin: 12/04/18 20:42 Dose: 400 mg Insulin Human Regular (Novolin R) 0 unit SC ACHS [facility]; Protocol Last Admin: 12/07/18 21:42 Dose: Not Given Morphine Sulfate (Morphine) 1 mg IV Q6 PRN PRN Reason: Pain, severe (8-10) Last Admin: 12/07/18 13:15 Dose: 1 mg Oxycodone/Acetaminophen (Percocet 5/325 Mg Tab) 2 tab PO Q6H PRN PRN Reason: Pain, severe (8-10) Stop: 12/10/18 18:52 Last Admin: 12/07/18 19:10 Dose: 2 tab Pantoprazole Sodium (Protonix Ec Tab) 40 mg PO DAILY [facility] Last Admin: 12/07/18 10:13 Dose: 40 mg Prednisolone Acetate (Pred Forte 1% Opht Susp) 1 ml OS TID [facility] Last Admin: 12/07/18 18:03 Dose: 1 drop Sitagliptin Phosphate (Januvia) 100 mg PO DAILY [facility] Last Admin: 12/07/18 10:13 Dose: 100 mg - Labs Labs: 12/06/18 08:15 12/06/18 08:15 PT 13.0 SECONDS (9.7-12.2) H 11/30/18 07:19 INR 1.2 11/30/18 07:19 APTT 29 SECONDS (21-34) 11/30/18 07:19 - Head Exam Head Exam: ATRAUMATIC - Eye Exam Eye Exam: Normal appearance - ENT Exam ENT Exam: Mucous Membranes Dry - Respiratory Exam Respiratory Exam: NORMAL BREATHING PATTERN - Cardiovascular Exam Cardiovascular Exam: +S1, +S2 - GI/Abdominal Exam GI & Abdominal Exam: Normal Bowel Sounds Assessment and Plan (1) Anemia Assessment & Plan: iron and b12 deficiency; on supplementation surgical blood loss from debridement will avoid IV iron supplementation at this time due to infection Status: Acute (2) Abscess of right lower extremity excluding foot Assessment & Plan: s/p debridement on antibiotics Status: Acute
--- NOTE | 2018-12-08 00:29 | CP.PCM.PN ---
Subjective - Date & Time of Evaluation Date of Evaluation: 12/05/18 Time of Evaluation: 16:00 - Subjective Subjective: Has right foot pain. Objective - Vital Signs/Intake and Output Vital Signs (last 24 hours): Temp Pulse Resp BP Pulse Ox 98.1 F 88 20 113/70 97 12/07/18 15:00 12/07/18 19:15 12/07/18 15:00 12/07/18 19:15 12/07/18 15:00 Intake and Output: 12/07/18 12/08/18 18:59 06:59 Intake Total 730 1300 Balance 730 1300 - Medications Medications: Current Medications Acetaminophen (Tylenol 325mg Tab) 650 mg PO Q6 PRN PRN Reason: Pain, Mild (1-3) Cyanocobalamin (Vitamin B12 1000 Mcg/Ml Inj) 1,000 mcg IM DAILY [facility] Last Admin: 12/07/18 10:14 Dose: 1,000 mcg Ferrous Sulfate (Feosol) 325 mg PO DAILY [facility] Last Admin: 12/07/18 10:13 Dose: 325 mg Glipizide (Glucotrol) 10 mg PO ACBD [facility] Last Admin: 12/07/18 18:02 Dose: 10 mg Home Med (Patient's Own Medication) 1 tab PO DAILY [facility] Last Admin: 12/07/18 10:12 Dose: 1 tab Vancomycin/Sodium Chloride (Vancomycin 1 Gm/Ns 200 Ml) 1 gm in 200 mls @ 133 mls/hr IVPB Q12H [facility]; Protocol Stop: 12/11/18 22:01 Last Admin: 12/07/18 21:46 Dose: 133 mls/hr Piperacillin Sod/Tazobactam Sod (Zosyn 3.375 Gm Iv Premix) 3.375 gm in 50 mls @ 100 mls/hr IVPB Q8H [facility]; Protocol Last Admin: 12/07/18 21:04 Dose: 100 mls/hr Ibuprofen (Motrin Tab) 400 mg PO Q8 PRN PRN Reason: Pain, moderate (4-7) Last Admin: 12/04/18 20:42 Dose: 400 mg Insulin Human Regular (Novolin R) 0 unit SC ACHS [facility]; Protocol Last Admin: 12/07/18 21:42 Dose: Not Given Morphine Sulfate (Morphine) 1 mg IV Q6 PRN PRN Reason: Pain, severe (8-10) Last Admin: 12/07/18 13:15 Dose: 1 mg Oxycodone/Acetaminophen (Percocet 5/325 Mg Tab) 2 tab PO Q6H PRN PRN Reason: Pain, severe (8-10) Stop: 12/10/18 18:52 Last Admin: 12/07/18 19:10 Dose: 2 tab Pantoprazole Sodium (Protonix Ec Tab) 40 mg PO DAILY [facility] Last Admin: 12/07/18 10:13 Dose: 40 mg Prednisolone Acetate (Pred Forte 1% Opht Susp) 1 ml OS TID [facility] Last Admin: 12/07/18 18:03 Dose: 1 drop Sitagliptin Phosphate (Januvia) 100 mg PO DAILY [facility] Last Admin: 12/07/18 10:13 Dose: 100 mg - Labs Labs: 12/06/18 08:15 12/06/18 08:15 PT 13.0 SECONDS (9.7-12.2) H 11/30/18 07:19 INR 1.2 11/30/18 07:19 APTT 29 SECONDS (21-34) 11/30/18 07:19 - Head Exam Head Exam: ATRAUMATIC - Eye Exam Eye Exam: Normal appearance - ENT Exam ENT Exam: Mucous Membranes Dry - Respiratory Exam Respiratory Exam: NORMAL BREATHING PATTERN - Cardiovascular Exam Cardiovascular Exam: +S1, +S2 - GI/Abdominal Exam GI & Abdominal Exam: Normal Bowel Sounds Assessment and Plan (1) Anemia Assessment & Plan: herb and b12 deficiency; on supplementation surgical blood loss from debridement will avoid IV iron supplementation at this time due to infection Status: Acute (2) Abscess of right lower extremity excluding foot Assessment & Plan: s/p debridement and on antibiotics f/u biopsy and immunoglobulin levels Status: Acute
--- NOTE | 2018-12-08 00:30 | CP.PCM.PN ---
Subjective - Date & Time of Evaluation Date of Evaluation: 12/07/18 Time of Evaluation: 20:00 - Subjective Subjective: Has right foot pain when attempting to weightbare Objective - Vital Signs/Intake and Output Vital Signs (last 24 hours): Temp Pulse Resp BP Pulse Ox 98.1 F 88 20 113/70 97 12/07/18 15:00 12/07/18 19:15 12/07/18 15:00 12/07/18 19:15 12/07/18 15:00 Intake and Output: 12/07/18 12/08/18 18:59 06:59 Intake Total 730 1300 Balance 730 1300 - Medications Medications: Current Medications Acetaminophen (Tylenol 325mg Tab) 650 mg PO Q6 PRN PRN Reason: Pain, Mild (1-3) Cyanocobalamin (Vitamin B12 1000 Mcg/Ml Inj) 1,000 mcg IM DAILY [facility] Last Admin: 12/07/18 10:14 Dose: 1,000 mcg Ferrous Sulfate (Feosol) 325 mg PO DAILY [facility] Last Admin: 12/07/18 10:13 Dose: 325 mg Glipizide (Glucotrol) 10 mg PO ACBD [facility] Last Admin: 12/07/18 18:02 Dose: 10 mg Home Med (Patient's Own Medication) 1 tab PO DAILY [facility] Last Admin: 12/07/18 10:12 Dose: 1 tab Vancomycin/Sodium Chloride (Vancomycin 1 Gm/Ns 200 Ml) 1 gm in 200 mls @ 133 mls/hr IVPB Q12H [facility]; Protocol Stop: 12/11/18 22:01 Last Admin: 12/07/18 21:46 Dose: 133 mls/hr Piperacillin Sod/Tazobactam Sod (Zosyn 3.375 Gm Iv Premix) 3.375 gm in 50 mls @ 100 mls/hr IVPB Q8H [facility]; Protocol Last Admin: 12/07/18 21:04 Dose: 100 mls/hr Ibuprofen (Motrin Tab) 400 mg PO Q8 PRN PRN Reason: Pain, moderate (4-7) Last Admin: 12/04/18 20:42 Dose: 400 mg Insulin Human Regular (Novolin R) 0 unit SC ACHS [facility]; Protocol Last Admin: 12/07/18 21:42 Dose: Not Given Morphine Sulfate (Morphine) 1 mg IV Q6 PRN PRN Reason: Pain, severe (8-10) Last Admin: 12/07/18 13:15 Dose: 1 mg Oxycodone/Acetaminophen (Percocet 5/325 Mg Tab) 2 tab PO Q6H PRN PRN Reason: Pain, severe (8-10) Stop: 12/10/18 18:52 Last Admin: 12/07/18 19:10 Dose: 2 tab Pantoprazole Sodium (Protonix Ec Tab) 40 mg PO DAILY [facility] Last Admin: 12/07/18 10:13 Dose: 40 mg Prednisolone Acetate (Pred Forte 1% Opht Susp) 1 ml OS TID [facility] Last Admin: 12/07/18 18:03 Dose: 1 drop Sitagliptin Phosphate (Januvia) 100 mg PO DAILY [facility] Last Admin: 12/07/18 10:13 Dose: 100 mg - Labs Labs: 12/06/18 08:15 12/06/18 08:15 PT 13.0 SECONDS (9.7-12.2) H 11/30/18 07:19 INR 1.2 11/30/18 07:19 APTT 29 SECONDS (21-34) 11/30/18 07:19 - Head Exam Head Exam: ATRAUMATIC - Eye Exam Eye Exam: Normal appearance - ENT Exam ENT Exam: Mucous Membranes Dry - Respiratory Exam Respiratory Exam: NORMAL BREATHING PATTERN - Cardiovascular Exam Cardiovascular Exam: +S1, +S2 - GI/Abdominal Exam GI & Abdominal Exam: Normal Bowel Sounds Assessment and Plan (1) Anemia Assessment & Plan: herb and b12 deficiency; on supplementation surgical blood loss from debridement will avoid IV iron supplementation at this time due to infection Status: Acute (2) Abscess of right lower extremity excluding foot Assessment & Plan: s/p debridement and on abx normal immunoglobulin levels Status: Acute
[2018-12-08] MEDS: Oxycodone/Acetaminophen 5/325 mg Tab PO PRN ×3 (02:09→20:42)
[2018-12-08] MEDS: Piperacill/Tazo 3.375gm in Dex 3.375 GM/50 ML BAG IVPB SCH ×3 (04:03→20:14)
--- NOTE | 2018-12-08 06:51 | CP.PCM.PN ---
Subjective - Date & Time of Evaluation Date of Evaluation: 12/08/18 Time of Evaluation: 06:43 - Subjective Subjective: Flako Garcia D.O. PGY-3, Internal Medicine Resident, Endocrinology Progress Note 48 year old female with a known PMH of DM2, HTN, multiple ulcers, RA, who presented for complaints of non-healing right leg ulcer. Endocrinology consultation was requested due to uncontrolled DM. Patient was seen and examined at bedside. Found resting comfortably. Still having some issues with ambulation. Objective - Vital Signs/Intake and Output Vital Signs (last 24 hours): Temp Pulse Resp BP Pulse Ox 97.8 F 78 20 96/67 L 97 12/08/18 01:00 12/08/18 01:00 12/08/18 01:00 12/08/18 01:00 12/08/18 01:00 Intake and Output: 12/07/18 12/08/18 18:59 06:59 Intake Total 730 1300 Balance 730 1300 - Medications Medications: Current Medications Acetaminophen (Tylenol 325mg Tab) 650 mg PO Q6 PRN PRN Reason: Pain, Mild (1-3) Cyanocobalamin (Vitamin B12 1000 Mcg/Ml Inj) 1,000 mcg IM DAILY [facility] Last Admin: 12/07/18 10:14 Dose: 1,000 mcg Ferrous Sulfate (Feosol) 325 mg PO DAILY [facility] Last Admin: 12/07/18 10:13 Dose: 325 mg Glipizide (Glucotrol) 10 mg PO ACBD [facility] Last Admin: 12/07/18 18:02 Dose: 10 mg Home Med (Patient's Own Medication) 1 tab PO DAILY [facility] Last Admin: 12/07/18 10:12 Dose: 1 tab Vancomycin/Sodium Chloride (Vancomycin 1 Gm/Ns 200 Ml) 1 gm in 200 mls @ 133 mls/hr IVPB Q12H [facility]; Protocol Stop: 12/11/18 22:01 Last Admin: 12/07/18 21:46 Dose: 133 mls/hr Piperacillin Sod/Tazobactam Sod (Zosyn 3.375 Gm Iv Premix) 3.375 gm in 50 mls @ 100 mls/hr IVPB Q8H [facility]; Protocol Last Admin: 12/08/18 04:03 Dose: 100 mls/hr Ibuprofen (Motrin Tab) 400 mg PO Q8 PRN PRN Reason: Pain, moderate (4-7) Last Admin: 12/08/18 03:59 Dose: 400 mg Insulin Human Regular (Novolin R) 0 unit SC ACHS [facility]; Protocol Last Admin: 12/07/18 21:42 Dose: Not Given Morphine Sulfate (Morphine) 1 mg IV Q6 PRN PRN Reason: Pain, severe (8-10) Last Admin: 12/07/18 13:15 Dose: 1 mg Oxycodone/Acetaminophen (Percocet 5/325 Mg Tab) 2 tab PO Q6H PRN PRN Reason: Pain, severe (8-10) Stop: 12/10/18 18:52 Last Admin: 12/08/18 02:09 Dose: 2 tab Pantoprazole Sodium (Protonix Ec Tab) 40 mg PO DAILY [facility] Last Admin: 12/07/18 10:13 Dose: 40 mg Prednisolone Acetate (Pred Forte 1% Opht Susp) 1 ml OS TID [facility] Last Admin: 12/07/18 18:03 Dose: 1 drop Sitagliptin Phosphate (Januvia) 100 mg PO DAILY [facility] Last Admin: 12/07/18 10:13 Dose: 100 mg - Labs Labs: 12/06/18 08:15 12/06/18 08:15 PT 13.0 SECONDS (9.7-12.2) H 11/30/18 07:19 INR 1.2 11/30/18 07:19 APTT 29 SECONDS (21-34) 11/30/18 07:19 - Constitutional Appears: Well developed, Non-toxic, No Acute Distress - Head Exam Head Exam: ATRAUMATIC, NORMOCEPHALIC - Eye Exam Eye Exam: EOMI. absent: Scleral icterus - ENT Exam ENT Exam: Mucous Membranes Moist, Normal Oropharynx - Neck Exam Neck Exam: Normal Inspection - Respiratory Exam Respiratory Exam: absent: Rhonchi, Wheezes - Cardiovascular Exam Cardiovascular Exam: +S1, +S2 - GI/Abdominal Exam GI & Abdominal Exam: Soft - Extremities Exam Additional comments: leg ulcer on R, wrapped - Neurological Exam Neurological Exam: Alert, Awake, Orientedx4 - Psychiatric Exam Psychiatric exam: Normal Affect, Normal Mood - Skin Skin Exam: Dry, Warm Assessment and Plan - Assessment and Plan (Free Text) Assessment: 48 year old female with a known PMH of DM2, HTN, multiple ulcers, RA, who presented for complaints of non-healing right leg ulcer. Endocrinology consultation was requested due to uncontrolled DM. Plan: 1. Uncontrolled DM type 2 with neuropathy Improving glycemic control Blood sugars last 24 hrs 71-198 Continue accuchecks Continue jardiance 10mg PO QD, januvia 100mg PO QD,and glipizide 10mg PO ACBD 2. Nonhealing neuropathic ulceration of right leg Podiatry and ID following, s/p debridement and on abx Patient was seen and examined and case to be discussed with attending physician Dr. Alford.
[2018-12-08 07:44] LABS: BASO % 0.9 % (0.0-2.0); EOS # 0.1 K/uL (0.0-0.7); EOS % 2.7 % (0.0-4.0); HEMOGLOBIN 8.1 g/dL (11.0-16.0); LYMPH # 0.6 K/uL (1.0-4.3); LYMPH % 16.2 % (20.0-40.0); MEAN CELL VOLUME 79.4 fL (81.0-99.0); MEAN CORPUSCULAR HEMOGLOBIN 24.4 pg (27.0-31.0); MEAN CORPUSCULAR HGB CONC 30.8 g/dL (33.0-37.0); MONO # 0.8 K/uL (0.0-0.8); MONO % 19.9 % (0.0-10.0); NEUT # 2.4 K/uL (1.8-7.0); NEUT % 60.3 % (50.0-75.0); NRBC % 0.4 % (0.0-2.0); RBC 3.32 Mil/uL (3.80-5.20); RED CELL DISTRIBUTION WIDTH 18.5 % (11.5-14.5)
[2018-12-08] MEDS: (Novolin R) Insulin Human Regular 100 units/ml vial SC SCH ×4 (07:57→21:39)
[2018-12-08 08:32] LABS: ALBUMIN 3.6 g/dL (3.5-5.0); ALT/SGPT 26 U/L (9-52); AST/SGOT 47 U/L (14-36); BLOOD UREA NITROGEN 11 mg/dL (7-17); CALCIUM 9.2 mg/dl (8.6-10.4); GFR NON-AFRICAN AMERICAN > 60
[2018-12-08] MEDS: Pantoprazole 40 mg EC Tab PO SCH (09:43)
[2018-12-08] MEDS: JARDIANCE 10MG PO SCH (09:44)
[2018-12-08] MEDS: Vancomycin 1 gm/NS 200 ml 1 GM/200 ML BAG IVPB SCH ×2 (09:54→21:32)
[2018-12-08] MEDS: PrednisoLONE 1% Opht Susp(5 ml) OS SCH ×3 (09:58→18:17)
--- NOTE | 2018-12-08 11:07 | CP.PCM.PN ---
Subjective - Date & Time of Evaluation Date of Evaluation: 12/08/18 Time of Evaluation: 11:07 - Subjective Subjective: Progress note dictated #[id number] Objective - Vital Signs/Intake and Output Vital Signs (last 24 hours): Temp Pulse Resp BP Pulse Ox 97.4 F L 80 20 95/67 L 98 12/08/18 08:11 12/08/18 08:11 12/08/18 08:11 12/08/18 08:11 12/08/18 08:11 Intake and Output: 12/08/18 12/08/18 06:59 18:59 Intake Total 1300 230 Balance 1300 230 - Medications Medications: Current Medications Acetaminophen (Tylenol 325mg Tab) 650 mg PO Q6 PRN PRN Reason: Pain, Mild (1-3) Cyanocobalamin (Vitamin B12 1000 Mcg/Ml Inj) 1,000 mcg IM DAILY [facility] Last Admin: 12/08/18 09:43 Dose: 1,000 mcg Ferrous Sulfate (Feosol) 325 mg PO DAILY [facility] Last Admin: 12/08/18 09:43 Dose: 325 mg Glipizide (Glucotrol) 10 mg PO ACBD [facility] Last Admin: 12/08/18 08:28 Dose: Not Given Home Med (Patient's Own Medication) 1 tab PO DAILY [facility] Last Admin: 12/08/18 09:44 Dose: 1 tab Vancomycin/Sodium Chloride (Vancomycin 1 Gm/Ns 200 Ml) 1 gm in 200 mls @ 133 mls/hr IVPB Q12H [facility]; Protocol Stop: 12/11/18 22:01 Last Admin: 12/08/18 09:54 Dose: 133 mls/hr Piperacillin Sod/Tazobactam Sod (Zosyn 3.375 Gm Iv Premix) 3.375 gm in 50 mls @ 100 mls/hr IVPB Q8H [facility]; Protocol Last Admin: 12/08/18 04:03 Dose: 100 mls/hr Ibuprofen (Motrin Tab) 400 mg PO Q8 PRN PRN Reason: Pain, moderate (4-7) Last Admin: 12/08/18 03:59 Dose: 400 mg Insulin Human Regular (Novolin R) 0 unit SC ACHS [facility]; Protocol Last Admin: 12/08/18 07:57 Dose: Not Given Oxycodone/Acetaminophen (Percocet 5/325 Mg Tab) 2 tab PO Q6H PRN PRN Reason: Pain, severe (8-10) Stop: 12/10/18 18:52 Last Admin: 12/08/18 02:09 Dose: 2 tab Pantoprazole Sodium (Protonix Ec Tab) 40 mg PO DAILY [facility] Last Admin: 12/08/18 09:43 Dose: 40 mg Prednisolone Acetate (Pred Forte 1% Opht Susp) 1 ml OS TID [facility] Last Admin: 12/08/18 09:58 Dose: 1 drop Sitagliptin Phosphate (Januvia) 100 mg PO DAILY [facility] Last Admin: 12/08/18 09:43 Dose: 100 mg - Labs Labs: 12/08/18 07:29 12/08/18 07:29 PT 13.0 SECONDS (9.7-12.2) H 11/30/18 07:19 INR 1.2 11/30/18 07:19 APTT 29 SECONDS (21-34) 11/30/18 07:19
--- NOTE | 2018-12-08 22:29 | CP.PCM.PN ---
Subjective - Date & Time of Evaluation Date of Evaluation: 12/08/18 Time of Evaluation: 18:00 - Subjective Subjective: Some foot discomfort Objective - Vital Signs/Intake and Output Vital Signs (last 24 hours): Temp Pulse Resp BP Pulse Ox 97.7 F 85 20 94/59 L 98 12/08/18 16:54 12/08/18 16:54 12/08/18 16:54 12/08/18 16:54 12/08/18 16:54 Intake and Output: 12/08/18 12/09/18 18:59 06:59 Intake Total 930 Balance 930 - Medications Medications: Current Medications Acetaminophen (Tylenol 325mg Tab) 650 mg PO Q6 PRN PRN Reason: Pain, Mild (1-3) Cyanocobalamin (Vitamin B12 1000 Mcg/Ml Inj) 1,000 mcg IM DAILY [facility] Last Admin: 12/08/18 09:43 Dose: 1,000 mcg Ferrous Sulfate (Feosol) 325 mg PO DAILY [facility] Last Admin: 12/08/18 09:43 Dose: 325 mg Glipizide (Glucotrol) 10 mg PO ACBD [facility] Last Admin: 12/08/18 18:17 Dose: 10 mg Home Med (Patient's Own Medication) 1 tab PO DAILY [facility] Last Admin: 12/08/18 09:44 Dose: 1 tab Vancomycin/Sodium Chloride (Vancomycin 1 Gm/Ns 200 Ml) 1 gm in 200 mls @ 133 mls/hr IVPB Q12H [facility]; Protocol Stop: 12/11/18 22:01 Last Admin: 12/08/18 21:32 Dose: 133 mls/hr Piperacillin Sod/Tazobactam Sod (Zosyn 3.375 Gm Iv Premix) 3.375 gm in 50 mls @ 100 mls/hr IVPB Q8H [facility]; Protocol Last Admin: 12/08/18 20:14 Dose: 100 mls/hr Ibuprofen (Motrin Tab) 400 mg PO Q8 PRN PRN Reason: Pain, moderate (4-7) Last Admin: 12/08/18 03:59 Dose: 400 mg Insulin Human Regular (Novolin R) 0 unit SC ACHS [facility]; Protocol Last Admin: 12/08/18 21:39 Dose: Not Given Oxycodone/Acetaminophen (Percocet 5/325 Mg Tab) 2 tab PO Q6H PRN PRN Reason: Pain, severe (8-10) Stop: 12/10/18 18:52 Last Admin: 12/08/18 20:42 Dose: 2 tab Pantoprazole Sodium (Protonix Ec Tab) 40 mg PO DAILY [facility] Last Admin: 12/08/18 09:43 Dose: 40 mg Prednisolone Acetate (Pred Forte 1% Opht Susp) 1 ml OS TID [facility] Last Admin: 12/08/18 18:17 Dose: 1 drop Sitagliptin Phosphate (Januvia) 100 mg PO DAILY [facility] Last Admin: 12/08/18 09:43 Dose: 100 mg - Labs Labs: 12/08/18 07:29 12/08/18 07:29 PT 13.0 SECONDS (9.7-12.2) H 11/30/18 07:19 INR 1.2 11/30/18 07:19 APTT 29 SECONDS (21-34) 11/30/18 07:19 - Head Exam Head Exam: ATRAUMATIC - Eye Exam Eye Exam: Normal appearance - ENT Exam ENT Exam: Mucous Membranes Dry - Respiratory Exam Respiratory Exam: NORMAL BREATHING PATTERN - Cardiovascular Exam Cardiovascular Exam: +S1, +S2 - GI/Abdominal Exam GI & Abdominal Exam: Normal Bowel Sounds Assessment and Plan (1) Anemia Assessment & Plan: iron and b12 deficiency; on supplementation surgical blood loss from debridement will avoid IV iron supplementation at this time due to infection transfusion support PRN Status: Acute (2) Abscess of right lower extremity excluding foot Status: Acute
--- NOTE | 2018-12-08 23:02 | CP.PCM.PN ---
Subjective - Date & Time of Evaluation Date of Evaluation: 12/08/18 Time of Evaluation: 09:00 - Subjective Subjective: improving on IV rx wound care in progress Objective - Vital Signs/Intake and Output Vital Signs (last 24 hours): Temp Pulse Resp BP Pulse Ox 97.7 F 85 20 94/59 L 98 12/08/18 16:54 12/08/18 16:54 12/08/18 16:54 12/08/18 16:54 12/08/18 16:54 Intake and Output: 12/08/18 12/09/18 18:59 06:59 Intake Total 930 Balance 930 - Medications Medications: Current Medications Acetaminophen (Tylenol 325mg Tab) 650 mg PO Q6 PRN PRN Reason: Pain, Mild (1-3) Cyanocobalamin (Vitamin B12 1000 Mcg/Ml Inj) 1,000 mcg IM DAILY [facility] Last Admin: 12/08/18 09:43 Dose: 1,000 mcg Ferrous Sulfate (Feosol) 325 mg PO DAILY [facility] Last Admin: 12/08/18 09:43 Dose: 325 mg Glipizide (Glucotrol) 10 mg PO ACBD [facility] Last Admin: 12/08/18 18:17 Dose: 10 mg Home Med (Patient's Own Medication) 1 tab PO DAILY [facility] Last Admin: 12/08/18 09:44 Dose: 1 tab Vancomycin/Sodium Chloride (Vancomycin 1 Gm/Ns 200 Ml) 1 gm in 200 mls @ 133 mls/hr IVPB Q12H [facility]; Protocol Stop: 12/11/18 22:01 Last Admin: 12/08/18 21:32 Dose: 133 mls/hr Piperacillin Sod/Tazobactam Sod (Zosyn 3.375 Gm Iv Premix) 3.375 gm in 50 mls @ 100 mls/hr IVPB Q8H [facility]; Protocol Last Admin: 12/08/18 20:14 Dose: 100 mls/hr Ibuprofen (Motrin Tab) 400 mg PO Q8 PRN PRN Reason: Pain, moderate (4-7) Last Admin: 12/08/18 03:59 Dose: 400 mg Insulin Human Regular (Novolin R) 0 unit SC ACHS [facility]; Protocol Last Admin: 12/08/18 21:39 Dose: Not Given Oxycodone/Acetaminophen (Percocet 5/325 Mg Tab) 2 tab PO Q6H PRN PRN Reason: Pain, severe (8-10) Stop: 12/10/18 18:52 Last Admin: 12/08/18 20:42 Dose: 2 tab Pantoprazole Sodium (Protonix Ec Tab) 40 mg PO DAILY [facility] Last Admin: 12/08/18 09:43 Dose: 40 mg Prednisolone Acetate (Pred Forte 1% Opht Susp) 1 ml OS TID [facility] Last Admin: 12/08/18 18:17 Dose: 1 drop Sitagliptin Phosphate (Januvia) 100 mg PO DAILY [facility] Last Admin: 12/08/18 09:43 Dose: 100 mg - Labs Labs: 12/08/18 07:29 12/08/18 07:29 PT 13.0 SECONDS (9.7-12.2) H 11/30/18 07:19 INR 1.2 11/30/18 07:19 APTT 29 SECONDS (21-34) 11/30/18 07:19 - Constitutional Appears: Non-toxic - Head Exam Head Exam: NORMOCEPHALIC - Eye Exam Eye Exam: absent: Scleral icterus Pupil Exam: NORMAL ACCOMODATION - ENT Exam ENT Exam: Mucous Membranes Dry - Neck Exam Neck Exam: absent: Lymphadenopathy - Respiratory Exam Respiratory Exam: absent: Decreased Breath Sounds - Cardiovascular Exam Cardiovascular Exam: REGULAR RHYTHM, +S1, +S2 - GI/Abdominal Exam GI & Abdominal Exam: Distended, Soft. absent: Tenderness - Rectal Exam Rectal Exam: Deferred - Exam Exam: NORMAL INSPECTION - Extremities Exam Extremities Exam: Pedal Edema - Back Exam Back Exam: absent: CVA tenderness (L), CVA tenderness (R), paraspinal tenderness - Neurological Exam Neurological Exam: Alert, Awake, Oriented x3 - Psychiatric Exam Psychiatric exam: Normal Mood - Skin Skin Exam: Dry Assessment and Plan (1) Abscess of right lower extremity excluding foot Status: Acute (2) Diabetes mellitus type 2 in nonobese Status: Acute - Assessment and Plan (Free Text) Assessment: for d/c to NH to cont IV rx for at least 2 more weeks
--- NOTE | 2018-12-09 00:14 | PN ---
DATE: 12/08/2018 SUBJECTIVE: The patient is seen and examined at bedside. The patient offers no new complaints other than right lower extremity pain. PHYSICAL EXAMINATION: GENERAL: Middle-aged female, lying in bed, in no acute distress. VITAL SIGNS: Blood pressure 94/59, pulse 85, respirations 20, temperature 97.7 degrees Fahrenheit, O2 saturations 98% on room air. HEENT: Pupils equal, round, and reacting to light and accommodation. Extraocular muscles intact. No icterus. No pallor. No oral thrush. No pharyngeal congestion. NECK: Supple. No JVD. LUNGS: Bilateral vesicular breath sounds. No wheezing. No rhonchi. CARDIOVASCULAR SYSTEM: S1 and S2 present, regular. ABDOMEN: Soft, nontender. Bowel sounds present. No guarding. No rigidity. No rebound tenderness noted. CENTRAL NERVOUS SYSTEM: Alert, awake, oriented x3. No focal deficits noted. EXTREMITIES: Right lower extremity with dressing in place. MEDICATIONS: Include Tylenol as needed, B12 1000 mcg daily, Feosol 325 mg p.o. daily, glipizide 10 mg p.o. b.i.d., Percocet as needed, Protonix 40 mg daily, Zosyn 3.375 g IV every 8 hours, prednisolone eye drops, Januvia 100 mg daily, vancomycin 1 g IV every 12 hours. LABORATORY DATA: Labs from today, WBC 4, hemoglobin 8.1, hematocrit 26.3, platelets 228. Sodium 137, potassium 3.7, chloride 104, bicarb 23, BUN 11, creatinine 0.6, glucose 96, calcium 9.2, phosphorus 4.3, magnesium 1.8. Total bilirubin 0.4, AST 47, ALT 26, alkaline phosphatase 74, total protein 7.1, albumin 3.6. ASSESSMENT AND PLAN: A middle-aged female with past medical history of diabetes mellitus, admitted for right lower extremity recurrence, nonhealing ulcer status post debridement and biopsy, biopsy consistent with acute and chronic inflammatory changes, anemia probably secondary to debridement and blood loss. Discussed with Dr. Cruz, recommended two weeks of intravenous Zosyn. Physical Therapy recommending subacute rehabilitation for the patient. Podiatry is not planning to do any further surgeries at this moment. Discussed with case management. Awaiting for authorization from the insurance. The patient may be transferred to subacute rehabilitation when bed available, discussed the same with the patient. We will continue with other current medications. Yamil Horn MD
[2018-12-09] MEDS: Piperacill/Tazo 3.375gm in Dex 3.375 GM/50 ML BAG IVPB SCH ×2 (03:09→12:01)
[2018-12-09] MEDS: Oxycodone/Acetaminophen 5/325 mg Tab PO PRN ×2 (03:10→14:33)
--- NOTE | 2018-12-09 07:03 | CP.PCM.PN ---
Subjective - Date & Time of Evaluation Date of Evaluation: 12/09/18 Time of Evaluation: 06:35 - Subjective Subjective: Flako Garcia D.O. PGY-3, Internal Medicine Resident, Endocrinology Progress Note 48 year old female with a known PMH of DM2, HTN, multiple ulcers, RA, who presented for complaints of non-healing right leg ulcer. Endocrinology consultation was requested due to uncontrolled DM. Patient was seen and examined at bedside. Patient states that she is doing somewhat better with her walking. States that she still has some discomfort around the ulcer. Objective - Vital Signs/Intake and Output Vital Signs (last 24 hours): Temp Pulse Resp BP Pulse Ox 98.7 F 67 20 105/65 97 12/09/18 00:11 12/09/18 00:11 12/09/18 00:11 12/09/18 00:11 12/09/18 00:11 Intake and Output: 12/09/18 12/09/18 06:59 18:59 Intake Total 1270 Balance 1270 - Medications Medications: Current Medications Acetaminophen (Tylenol 325mg Tab) 650 mg PO Q6 PRN PRN Reason: Pain, Mild (1-3) Cyanocobalamin (Vitamin B12 1000 Mcg/Ml Inj) 1,000 mcg IM DAILY [facility] Last Admin: 12/08/18 09:43 Dose: 1,000 mcg Ferrous Sulfate (Feosol) 325 mg PO DAILY [facility] Last Admin: 12/08/18 09:43 Dose: 325 mg Glipizide (Glucotrol) 10 mg PO ACBD [facility] Last Admin: 12/08/18 18:17 Dose: 10 mg Home Med (Patient's Own Medication) 1 tab PO DAILY [facility] Last Admin: 12/08/18 09:44 Dose: 1 tab Vancomycin/Sodium Chloride (Vancomycin 1 Gm/Ns 200 Ml) 1 gm in 200 mls @ 133 mls/hr IVPB Q12H [facility]; Protocol Stop: 12/11/18 22:01 Last Admin: 12/08/18 21:32 Dose: 133 mls/hr Piperacillin Sod/Tazobactam Sod (Zosyn 3.375 Gm Iv Premix) 3.375 gm in 50 mls @ 100 mls/hr IVPB Q8H [facility]; Protocol Last Admin: 12/09/18 03:09 Dose: 100 mls/hr Ibuprofen (Motrin Tab) 400 mg PO Q8 PRN PRN Reason: Pain, moderate (4-7) Last Admin: 12/08/18 03:59 Dose: 400 mg Insulin Human Regular (Novolin R) 0 unit SC [facility]; Protocol Last Admin: 12/08/18 21:39 Dose: Not Given Oxycodone/Acetaminophen (Percocet 5/325 Mg Tab) 2 tab PO Q6H PRN PRN Reason: Pain, severe (8-10) Stop: 12/10/18 18:52 Last Admin: 12/09/18 03:10 Dose: 2 tab Pantoprazole Sodium (Protonix Ec Tab) 40 mg PO DAILY [facility] Last Admin: 12/08/18 09:43 Dose: 40 mg Prednisolone Acetate (Pred Forte 1% Opht Susp) 1 ml OS TID [facility] Last Admin: 12/08/18 18:17 Dose: 1 drop Sitagliptin Phosphate (Januvia) 100 mg PO DAILY [facility] Last Admin: 12/08/18 09:43 Dose: 100 mg - Labs Labs: 12/08/18 07:29 12/08/18 07:29 PT 13.0 SECONDS (9.7-12.2) H 11/30/18 07:19 INR 1.2 11/30/18 07:19 APTT 29 SECONDS (21-34) 11/30/18 07:19 - Constitutional Appears: Well developed, Non-toxic, No Acute Distress - Head Exam Head Exam: ATRAUMATIC, NORMOCEPHALIC - Eye Exam Eye Exam: EOMI. absent: Scleral icterus - ENT Exam ENT Exam: Mucous Membranes Moist, Normal Oropharynx - Neck Exam Neck Exam: Normal Inspection - Respiratory Exam Respiratory Exam: absent: Rhonchi, Wheezes - Cardiovascular Exam Cardiovascular Exam: +S1, +S2 - GI/Abdominal Exam GI & Abdominal Exam: Soft - Extremities Exam Additional comments: leg ulcer on R, wrapped - Neurological Exam Neurological Exam: Alert, Awake, Orientedx4 - Psychiatric Exam Psychiatric exam: Normal Affect, Normal Mood - Skin Skin Exam: Dry, Warm Assessment and Plan - Assessment and Plan (Free Text) Assessment: 48 year old female with a known PMH of DM2, HTN, multiple ulcers, RA, who presented for complaints of non-healing right leg ulcer. Endocrinology consultation was requested due to uncontrolled DM. Plan: 1. Uncontrolled DM type 2 with neuropathy Getting better and better glycemic control Blood sugars last 24 hrs 96-190 Continue accuchecks Continue jardiance 10mg PO QD Continue januvia 100mg PO QD Continue glipizide 10mg PO ACBD 2. Nonhealing neuropathic ulceration of right leg Podiatry and ID following, s/p debridement and on abx Pain control per primary team/podiatry Patient was seen and examined and case to be discussed with attending physician Dr. Alford.
--- NOTE | 2018-12-09 07:44 | PN ---
DATE: 12/08/2018 ENDO FOLLOWUP NOTE. LOCATION: Room SUBJECTIVE: and is now being followed closely for metabolic . Glucose levels overnight have ranged from 96 to 198 mg/dL. The chemistry showed a BUN of 11, protein 137, potassium 3.7, chloride 104, CO2 of 23, glucose 88, with Januvia 100 mg daily and glipizide at 10 mg b.i.d. before meals. will supplement accordingly as needed. Gwen Alford MD
[2018-12-09] MEDS: (Novolin R) Insulin Human Regular 100 units/ml vial SC SCH ×3 (07:54→17:26)
[2018-12-09] MEDS ORDERED: Lidocaine 2% Jelly (30 ml) TOP ONE (08:45)
[2018-12-09] MEDS: Pantoprazole 40 mg EC Tab PO SCH (09:47)
[2018-12-09] MEDS: JARDIANCE 10MG PO SCH (09:48)
[2018-12-09] MEDS: PrednisoLONE 1% Opht Susp(5 ml) OS SCH ×3 (09:50→17:27)
[2018-12-09] MEDS: Vancomycin 1 gm/NS 200 ml 1 GM/200 ML BAG IVPB SCH (10:07)
[2018-12-09 10:33] VITALS: O2SAT 98
--- NOTE | 2018-12-09 10:35 | CP.PCM.PN ---
Subjective - Date & Time of Evaluation Date of Evaluation: 12/09/18 Time of Evaluation: 10:34 - Subjective Subjective: Discharge summary dictated #[id number] Objective - Vital Signs/Intake and Output Vital Signs (last 24 hours): Temp Pulse Resp BP Pulse Ox 98 F 92 H 20 108/70 98 12/09/18 08:10 12/09/18 08:10 12/09/18 08:10 12/09/18 08:10 12/09/18 08:10 Intake and Output: 12/09/18 12/09/18 06:59 18:59 Intake Total 1270 Balance 1270 - Medications Medications: Current Medications Acetaminophen (Tylenol 325mg Tab) 650 mg PO Q6 PRN PRN Reason: Pain, Mild (1-3) Cyanocobalamin (Vitamin B12 1000 Mcg/Ml Inj) 1,000 mcg IM DAILY [facility] Last Admin: 12/09/18 09:51 Dose: Not Given Ferrous Sulfate (Feosol) 325 mg PO DAILY [facility] Last Admin: 12/09/18 09:48 Dose: 325 mg Glipizide (Glucotrol) 10 mg PO ACBD [facility] Last Admin: 12/09/18 09:48 Dose: 10 mg Home Med (Patient's Own Medication) 1 tab PO DAILY [facility] Last Admin: 12/09/18 09:48 Dose: 1 tab Vancomycin/Sodium Chloride (Vancomycin 1 Gm/Ns 200 Ml) 1 gm in 200 mls @ 133 mls/hr IVPB Q12H [facility]; Protocol Stop: 12/11/18 22:01 Last Admin: 12/09/18 10:07 Dose: 133 mls/hr Piperacillin Sod/Tazobactam Sod (Zosyn 3.375 Gm Iv Premix) 3.375 gm in 50 mls @ 100 mls/hr IVPB Q8H [facility]; Protocol Last Admin: 12/09/18 03:09 Dose: 100 mls/hr Ibuprofen (Motrin Tab) 400 mg PO Q8 PRN PRN Reason: Pain, moderate (4-7) Last Admin: 12/08/18 03:59 Dose: 400 mg Insulin Human Regular (Novolin R) 0 unit SC ACHS [facility]; Protocol Last Admin: 12/09/18 07:54 Dose: Not Given Oxycodone/Acetaminophen (Percocet 5/325 Mg Tab) 2 tab PO Q6H PRN PRN Reason: Pain, severe (8-10) Stop: 12/10/18 18:52 Last Admin: 12/09/18 03:10 Dose: 2 tab Pantoprazole Sodium (Protonix Ec Tab) 40 mg PO DAILY [facility] Last Admin: 12/09/18 09:47 Dose: 40 mg Prednisolone Acetate (Pred Forte 1% Opht Susp) 1 ml OS TID [facility] Last Admin: 12/09/18 09:50 Dose: 1 drop Sitagliptin Phosphate (Januvia) 100 mg PO DAILY [facility] Last Admin: 12/09/18 09:47 Dose: 100 mg - Labs Labs: 12/08/18 07:29 12/08/18 07:29 PT 13.0 SECONDS (9.7-12.2) H 11/30/18 07:19 INR 1.2 11/30/18 07:19 APTT 29 SECONDS (21-34) 11/30/18 07:19
--- NOTE | 2018-12-09 17:19 | CP.PCM.PN ---
Subjective - Date & Time of Evaluation Date of Evaluation: 12/09/18 Time of Evaluation: 17:16 - Subjective Subjective: Podiatry Progress Note - Dr. Orta Patient seen and evaluated this morning at bedside for right leg wound. Patient is seven days s/p debridement of wound with biopsy (DOS 12/02/18). Patient is AAO x 3 and NAD, resting comfortably in bed. She states that her pain continues to improve. She denies any further pedal complaints at this time. Denies any acute overnight events. Denies any recent N/V/F/C/CP/SOB/D Objective - Vital Signs/Intake and Output Vital Signs (last 24 hours): Temp Pulse Resp BP Pulse Ox 98 F 92 H 20 108/70 98 12/09/18 08:10 12/09/18 08:10 12/09/18 08:10 12/09/18 08:10 12/09/18 08:10 Intake and Output: 12/09/18 12/09/18 06:59 18:59 Intake Total 1270 Balance 1270 - Medications Medications: Current Medications Acetaminophen (Tylenol 325mg Tab) 650 mg PO Q6 PRN PRN Reason: Pain, Mild (1-3) Cyanocobalamin (Vitamin B12 1000 Mcg/Ml Inj) 1,000 mcg IM DAILY [facility] Last Admin: 12/09/18 09:51 Dose: Not Given Ferrous Sulfate (Feosol) 325 mg PO DAILY [facility] Last Admin: 12/09/18 09:48 Dose: 325 mg Gabapentin (Neurontin) 300 mg PO BID [facility] Last Admin: 12/09/18 12:01 Dose: 300 mg Glipizide (Glucotrol) 10 mg PO ACBD [facility] Last Admin: 12/09/18 09:48 Dose: 10 mg Home Med (Patient's Own Medication) 1 tab PO DAILY [facility] Last Admin: 12/09/18 09:48 Dose: 1 tab Vancomycin/Sodium Chloride (Vancomycin 1 Gm/Ns 200 Ml) 1 gm in 200 mls @ 133 m ls/hr IVPB Q12H [facility]; Protocol Stop: 12/11/18 22:01 Last Admin: 12/09/18 10:07 Dose: 133 mls/hr Piperacillin Sod/Tazobactam Sod (Zosyn 3.375 Gm Iv Premix) 3.375 gm in 50 mls @ 100 mls/hr IVPB Q8H [facility]; Protocol Last Admin: 12/09/18 12:01 Dose: 100 mls/hr Ibuprofen (Motrin Tab) 400 mg PO Q8 PRN PRN Reason: Pain, moderate (4-7) Last Admin: 12/08/18 03:59 Dose: 400 mg Insulin Human Regular (Novolin R) 0 unit SC ACHS [facility]; Protocol Last Admin: 12/09/18 11:59 Dose: Not Given Oxycodone/Acetaminophen (Percocet 5/325 Mg Tab) 2 tab PO Q6H PRN PRN Reason: Pain, severe (8-10) Stop: 12/10/18 18:52 Last Admin: 12/09/18 14:33 Dose: 2 tab Pantoprazole Sodium (Protonix Ec Tab) 40 mg PO DAILY [facility] Last Admin: 12/09/18 09:47 Dose: 40 mg Prednisolone Acetate (Pred Forte 1% Opht Susp) 1 ml OS TID [facility] Last Admin: 12/09/18 13:38 Dose: 1 drop Sitagliptin Phosphate (Januvia) 100 mg PO DAILY [facility] Last Admin: 12/09/18 09:47 Dose: 100 mg - Labs Labs: 12/08/18 07:29 12/08/18 07:29 PT 13.0 SECONDS (9.7-12.2) H 11/30/18 07:19 INR 1.2 11/30/18 07:19 APTT 29 SECONDS (21-34) 11/30/18 07:19 - Constitutional Appears: Well, Non-toxic, No Acute Distress - Extremities Exam Additional comments: RLE focused VASC: DP and PT pulses weakly palpable 1/4. CFT <3 seconds to all digits. Temperature gradient warm to warm b/l. No increase in warmth noted periwound. NEURO: Epicritic and protective sensation grossly intact DERM: Ulceration measuring approximately 7 x 15 x 0.1 cm noted to right lower leg just proximal to ankle joint encompassing 75% of leg circumference. Wound is 20% fibrotic and 80% granular with rolled edges; Minimal clear/yellow serosanguinous drainage present; no purulence; no fluctuance; no malodor. No clinical signs of active infection appreciated at this time ORTHO: Severe pain on palpation to right leg wound, improving - Neurological Exam Neurological Exam: Alert, Awake, Oriented x3 - Psychiatric Exam Psychiatric exam: Normal Affect, Normal Mood Assessment and Plan - Assessment and Plan (Free Text) Assessment: Patient seen and evaluated this morning at bedside for right leg wound Plan: Patient seen and evaluated Plan discussed with Dr. Orta Continue abx per ID Continue pain management per primary team Mycobacterial culture prelim: negative Fungal smear final: No fungal elements seen Intraoperative biopsy x 5: Fragments of skin and underlying tissue with ulcerati on, acute and chronic inflammation, granulation tissue and reactive changes Wound dressed with xeroform, gauze, ABD, DSD No plan for further surgical intervention at this time Podiatry will continue to follow while patient in house Upon discharge Dr. Orta will f/u with patient at outpatient facility
[2018-12-09 17:30] VITALS: BP 119/74; PULSE 99; TEMP 97.8
--- NOTE | 2018-12-09 22:32 | CP.PCM.PN ---
Subjective - Date & Time of Evaluation Date of Evaluation: 12/09/18 Time of Evaluation: 12:00 - Subjective Subjective: No complaints. Objective - Vital Signs/Intake and Output Vital Signs (last 24 hours): Temp Pulse Resp BP Pulse Ox 97.8 F 99 H 20 119/74 98 12/09/18 16:00 12/09/18 16:00 12/09/18 16:00 12/09/18 16:00 12/09/18 16:00 Intake and Output: 12/09/18 12/10/18 18:59 06:59 Intake Total 350 Balance 350 - Labs Labs: 12/08/18 07:29 12/08/18 07:29 PT 13.0 SECONDS (9.7-12.2) H 11/30/18 07:19 INR 1.2 11/30/18 07:19 APTT 29 SECONDS (21-34) 11/30/18 07:19 - Head Exam Head Exam: ATRAUMATIC - Eye Exam Eye Exam: Normal appearance - ENT Exam ENT Exam: Mucous Membranes Dry - Respiratory Exam Respiratory Exam: NORMAL BREATHING PATTERN - Cardiovascular Exam Cardiovascular Exam: +S1, +S2 - GI/Abdominal Exam GI & Abdominal Exam: Normal Bowel Sounds Assessment and Plan (1) Anemia Assessment & Plan: iron and b12 deficiency; on supplementation surgical blood loss from debridement will avoid IV iron supplementation at this time due to infection transfusion support PRN Status: Acute (2) Abscess of right lower extremity excluding foot Status: Acute
--- NOTE | 2018-12-09 23:04 | PN ---
DATE: 12/09/2018 ENDOCRINOLOGY FOLLOWUP NOTE LOCATION: Room 471. SUBJECTIVE: This is a 48-year-old female with recent uncontrolled type 2 diabetes and recently had lower extremity debridement of the non-healing neuropathic ulceration and has been followed closely for metabolic management. LABORATORY DATA: Her glycemic levels are fluctuating with the variability of her oral intake her glucose levels have ranged from 87 to 98 and mg/dL. ASSESSMENT AND PLAN: So, at this time, we will continue the oral hypoglycemic therapy given in combination of Januvia 100 mg daily and glipizide 10 mg b.i.d. before meals as ordered. We will obtain serial chemistries and supplement accordingly as needed. We will follow up with you. Gwen Alford MD
--- NOTE | 2018-12-11 05:36 | DS ---
The patient was discharged to subacute rehab facility to [facility] on 12/09/2018. DISCHARGE DIAGNOSES: 1. Uncontrolled diabetes mellitus. 2. Right lower extremity nonhealing recurrent chronic ulcer, status post debridement and biopsy, biopsy consistent with acute and chronic inflammatory changes. 3. Anemia, probably secondary to post-debridement blood loss iron deficiency and B12 deficiency. Continue with wound care for long-term intravenous antibiotics. HISTORY OF PRESENT ILLNESS: Ms. Allen is a 48-year-old female with past medical history of uncontrolled diabetes mellitus, rheumatoid arthritis, decreased vision in the left eye and recent changes in her right eye vision, followed up with Ophthalmology. Came in to ED there referred by Podiatry for right lower extremity nonhealing ulcer for the past few days. In the ED, the patient was found to be having cellulitic changes and admitted for further management. On the day of discharge, the patient was feeling better. Denied any headache or dizziness. Denied any chest pain, shortness of breath or wheezing. Denied any nausea, vomiting, abdominal pain, diarrhea or constipation. Denied any urinary complaints. Complaining of right lower extremity pain on walking. Denies any other neurologic symptoms. All other systems reviewed and were found to be negative. PHYSICAL EXAMINATION: GENERAL: Middle-aged female, lying in bed in no acute distress. VITAL SIGNS: Blood pressure 119/74, pulse 99, respirations 20, temperature 97.8 degrees Fahrenheit, O2 saturation is 98% on room air. HEENT: Pupils equal and reacting to light and accommodation. Extraocular muscles intact. No icterus. Positive pallor. No oral thrush. No pharyngeal congestion. NECK: Supple. No JVD. LUNGS: Bilateral vesicular breath sounds. No wheezing. No rhonchi. CARDIOVASCULAR SYSTEM: S1 and S2 present, regular. ABDOMEN: Soft, nontender. Bowel sounds present. No guarding. No rigidity. No rebound tenderness noted. EXTREMITIES: Right lower extremity ulcer present with a dressing in place. LABORATORY DATA: Accu-Cheks 149, 190, 97, 98, and 96. On 12/08/2018, WBC 4, hemoglobin 8.1, hematocrit 26.3, platelets 228, reticulocyte count 2.6. Sodium 137, potassium 3.7, chloride 104, bicarb 23, BUN 11, creatinine 0.6, glucose 88. AST 47. Other LFTs within normal limits. Hemoglobin A1c is 8.3. B12 is 279. TSH is 2.2. Cholesterol 148, triglycerides 98. Ferritin 16.5. Immunoglobulin levels within normal limits. HIV negative. RPR nonreactive. Brucella negative. Hepatitis serology negative. HIV negative. [id number] negative. Group A beta strep antigen negative. HOSPITAL COURSE: The patient was admitted to the hospital, was started on IV antibiotics, evaluated by Podiatry and ID. The patient has been getting the wound care. The patient underwent debridement of the wound and biopsy and underwent nerve block for pain. Dr. Cruz recommended two more weeks of IV antibiotics. The patient had a PICC line placed. For uncontrolled diabetes, the patient was evaluated by Endocrinology. Her medications have been adjusted. The patient is otherwise hemodynamically stable, cleared by all the consultants, and she needs subacute rehab. The patient had a bed available at [facility]. The patient was transferred to subacute rehab for further care. The patient was evaluated by Hematology for anemia and for further input regarding her chronic nonhealing ulcers. DISCHARGE MEDICATIONS: Jardiance 10 mg daily, Tylenol as needed, B12 at 1000 mcg daily, Feosol 325 mg daily, Neurontin 300 mg p.o. b.i.d., glipizide 10 mg twice daily, Percocet two tablets p.o. every 6 hours p.r.n., Protonix 40 mg daily, Zosyn 3.375 g IV every 8 hours for 14 days, Januvia 100 mg daily, and prednisolone eye drops. CONDITION UPON DISCHARGE: The patient is alert, awake, and oriented x3 and hemodynamically stable at the time of discharge. DISCHARGE INSTRUCTIONS: Follow up with PMD. Follow up with Hematology. Follow up with Podiatry, ID, and Endocrinology. DISCHARGE DIET: Heart healthy, low sodium, low cholesterol 1800-calorie ADA diet. ACTIVITY: As tolerated. Continue with physical therapy and occupational therapy as recommended. Yamil Horn MD
== END 2018-12-09 17:40 | DRG 287 ==
LOC: C.ER 13:55 → C.9E 16:10 → C.3T 16:19
PROVIDERS: ADMIT Internal Medicine; ATTEND Internal Medicine
PROC: 0JBN0ZZ Excision of Right Lower Leg Subcutaneous Tissue and Fascia, Open Approach (ICD-10-PCS; 2018-12-03)
PROC: 0JBN0ZX Excision of Right Lower Leg Subcutaneous Tissue and Fascia, Open Approach, Diagnostic (ICD-10-PCS; 2018-12-03)
PROC: 02HV33Z Insertion of Infusion Device into Superior Vena Cava, Percutaneous Approach (ICD-10-PCS; principal; 2018-12-04)
DX: E11.621 Type 2 diabetes mellitus with foot ulcer (principal); L02.415 Cutaneous abscess of right lower limb; L97.519 Non-pressure chronic ulcer of other part of right foot with unspecified severity; E53.8 Deficiency of other specified B group vitamins; E11.65 Type 2 diabetes mellitus with hyperglycemia; L03.115 Cellulitis of right lower limb; B96.5 Pseudomonas (aeruginosa) (mallei) (pseudomallei) as the cause of diseases classified elsewhere; I10 Essential (primary) hypertension; H54.7 Unspecified visual loss; Z79.4 Long term (current) use of insulin; Z86.718 Personal history of other venous thrombosis and embolism; M06.9 Rheumatoid arthritis, unspecified; D64.9 Anemia, unspecified; Z68.20 Body mass index [BMI] 20.0-20.9, adult